=== PATIENT | male | born 1950 | race Caucasian/White ===

== ENCOUNTER → 2018-02-26 10:24 | Outpatient (CLI) | payer MEDICARE, OTHER, SELFPAY ==
[2018-02-26 11:56] LABS: INR 3.8 (0.9-1.3); Prothrombin Time 42.4 SECONDS (10.1-12.7)
== END ==
PROVIDERS: Visit Provider Internal Medicine
DX: Z79.01 Long term (current) use of anticoagulants (principal)
CPT/HCPCS: 36415; 85610

== ENCOUNTER 2019-04-13 10:01 | Day surgery (SDC) | payer MEDICARE, OTHER, SELFPAY ==
[2019-04-13] VITALS (7 sets, daily range): BP systolic 101–160; BP diastolic 62–77; PULSE 59–68; RESP 10–20; TEMP 36.4–36.7; O2SAT 93–98; BMI 25.6
--- NOTE | 2019-04-13 | PATH_ITS ---
[facility] Accession Number: [id number] . 01 Material submitted: . PART A: small bowel - TERMINAL ILEUM PART B: colon - RANDOM COLON BIOPSIES . 01 Clinical history: . A-B: HISTORY OF CROHNS . 02 Diagnosis: A. Terminal Ileum, Biopsy: Mild active ileitis; please see comment. Negative for granulomata, dysplasia or malignancy. . B. Random Colon, Biopsies: Patchy moderate active colitis; please see comment. Negative for granulomata, dysplasia or malignancy. MRV 04/18/2019 0941 Local . 02 Comment: The overall histologic findings are consistent with the clinical history of Crohn's disease. . 02 Electronically signed: . Iron Monroe MD, PhD, Pathologist NPI- [id number] . 01 Gross description: . Part A: TERMINAL ILEUM: Received in formalin are 2 fragment(s) of carbajal, soft tissue measuring 0.3 x 0.2 x 0.2 cm to 0.2 x 0.2 x 0.2 cm submitted entirely in 1 cassette(s) Part B: RANDOM COLON BIOPSIES: Received in formalin are multiple fragment(s) of carbajal, soft tissue measuring 1.0 x 1.0 x 0.1 cm in aggregate submitted entirely in 1 cassette(s) /QBJ 04/14/2019 0714 Local . 02 Pathologist provided ICD-10: K50.00 . 02 CPT . 031431, 200152 Performed at: 01 [facility] [address] [place] [address], [place], [place] [id number] MD Tito Jacobsen MD Phone: [phone] Performed at: [facility] [address] [place], [place] [id number] MD Reyna Guerrero MD Phone: [phone]
[2019-04-13] MEDS: SODIUM CHLORIDE 0.9% 1,000 ML 70 ML IV (10:58)
--- NOTE | 2019-04-13 12:29 | PM.HP.1 ---
History of Present Illness History of Present Illness Date Patient Seen: 04/13/19 Time Patient Seen: 12:29 Chief complaint: [id number] Narrative: Personal history of Crohn's disease. Denies any changes to his symptoms he was seen in the office on February 28, 2019. He is not on any medications for his Crohn's disease at this time. Patient History Family & Social History Social History: household members spouse Meds Home Medications and Allergies Home Medications Medication Instructions Recorded Confirmed Type Gralise 600 mg PO PRN #0 09/08/11 04/13/19 History cyclobenzaprine 10 mg PO PRN #0 09/08/11 04/13/19 History omeprazole 20 mg PO DAILY #0 09/08/11 04/13/19 History sertraline 50 mg PO QDAY #0 09/08/11 04/13/19 History simvastatin 40 mg PO QDAY #0 09/08/11 04/13/19 History warfarin [Coumadin] 8 mg PO QDAY #0 09/08/11 04/13/19 History aspirin [Aspirin Low Dose] 81 mg PO DAILY 04/13/19 04/13/19 History cholecalciferol (vitamin D3) 1,000 unit PO DAILY 04/13/19 04/13/19 History [Vitamin D3] eszopiclone [Lunesta] 2 mg PO BEDTIME 04/13/19 04/13/19 History hydrochlorothiazide 12.5 mg PO DAILY 04/13/19 04/13/19 History Allergies Allergy/AdvReac Type Severity Reaction Status Date / Time From Allergy Mild RASH Uncoded 04/13/19 10:41 TAPE Allergy Mild SENSITIVE Uncoded 04/13/19 10:41 Review of Systems Review of Systems ROS Unobtainable: All systems reviewed & are unremarkable except as noted in HPI and below Exam Vital Signs (past 8 hours): - 04/13/19 10:47 Temperature 98.0 F Pulse Rate 68 Respiratory Rate 15 Blood Pressure 160/77 H Pulse Oximetry 96 Oxygen Delivery Method Room Air Const General: cooperative, healthy appearing, comfortable, well developed and well groomed Nutritional Appearance: average body habitus Orientation: oriented x3 Resp Effort & Inspection: normal respiratory effort Auscultation: clear to auscultation bilaterally Cardio Rate: regular rate Rhythm: regular rhythm Heart Sounds: S1 normal and S2 normal GI Palpation: soft, No guarding, No rigid and No tender Auscultation: normal bowel sounds Extrem Right lower extremity: no edema Left lower extremity: no edema Assessment & Plan Assessment & Plan narrative: 1. Personal history of Crohn's disease 2. Coumadin - held 5 days prior to procedure - Colonoscopy today
[2019-04-13] MEDS: MIDAZOLAM 5 MG/5 ML VIAL IV (12:54)
[2019-04-13] MEDS: fentaNYL 250 MCG/5 ML INJ IV (12:54)
--- NOTE | 2019-04-13 13:07 | PM.OP.ENDO ---
Operative Date/Time/Diagnoses Date of procedure: 04/13/19 Time of procedure: 12:35 Procedure Notes Procedure in detail: Surgeon: Kim Rosenbaum DO Procedure: Colonoscopy with biopsy Preoperative diagnosis: Crohn's disease Postoperative diagnosis: 1. Normal appearing ileum -biopsied 2. Altered anatomy of cecum and ileocecal valve 3. Mild decreased vascularity of the colon, biopsied to assess for Crohn's activity 4. Sigmoid diverticulosis 5. Mild internal hemorrhoids noted on retroflexion Medications: Conscious sedation using 5 mg IV of Midazolam and 150 mcg IV of Fentanyl Preanesthesia Assessment An H and P was performed/updated and the Px?s ASA class is 2. The procedure was discussed in detail with the patient. The potential risks and complications including infection, bleeding, missed lesions, perforation, need for surgery in case of perforation, prolonged hospital stay, and were explained. A brief question and answer period was allotted and once all questions were answered, informed consent was obtained. The patient was brought back to the procedure room and placed on standard monitoring. The patient?s vital signs were monitored continuously throughout the entire procedure. Prior to starting, a timeout was performed to confirm the patient?s identity, allergies, medications, and procedure. Procedure in detail The patient was placed in left lateral decubitus position and once adequate sedation was obtained a PATO was performed. The digital rectal examination did not reveal any palpable lesions. The tip of the colonoscope was placed in the anal canal and advanced without difficulty all the way to the cecum which was identified by the appendiceal orifice and the ileocecal valve. Careful examination of all stoddard of the colon was performed with irrigation of any residual stool. Altered anatomy was noted in the cecum -initial appearance was suggestive of prior surgical intervention, however patient denies surgery. I suspect he has had stenosis of the ileum and potentially fistulized. Biopsies were taken of the terminal ileum Random colon biopsies were taken due to mild decreased vascularity throughout the colon to assess for Crohn's activity Sigmoid diverticulosis was noted Grade 1 internal hemorrhoids noted on retroflexion, exam was otherwise unremarkable The patient tolerated the procedure well and will be brought back to the recovery area to be discharged once criteria are met. The prep was judged to be good/excellent and adequate to identify polyps less than 5 mm. The withdrawal time was 7min. The total physician intraservice time was 22min. Complications There were no complications and estimated blood loss was minimal. Recommendations: Resume previous diet Continue outPx medications Follow up pathology results Repeat colonoscopy in Office follow up in An emergency contact number was given to the patient for any complications related to the procedure
== END 2019-04-13 13:49 | disposition home or self-care (01) ==
PROVIDERS: Family Provider Internal Medicine; PCP Internal Medicine; Visit Provider Student in an Organized Health Care Education/Training Program
PROC: 0DJD8ZZ Inspection of Lower Intestinal Tract, Via Natural or Artificial Opening Endoscopic (ICD-10-PCS; CPT 45378; principal; 2019-04-13 11:30)
DX: K50.00 Crohn's disease of small intestine without complications (principal); Z86.711 Personal history of pulmonary embolism; Z79.01 Long term (current) use of anticoagulants; I10 Essential (primary) hypertension; E78.5 Hyperlipidemia, unspecified; K57.30 Diverticulosis of large intestine without perforation or abscess without bleeding; K64.0 First degree hemorrhoids
CPT/HCPCS: 45380; J2250; J3010

== ENCOUNTER → 2020-05-21 06:24 | Outpatient (CLI) | payer MEDICARE, OTHER, SELFPAY ==
--- NOTE | 2020-05-21 | DI.MRI.S_ITS ---
PROCEDURE: MR SHOULDER LT WO CON INDICATIONS: PAIN IN LEFT SHOULDER TECHNIQUE: Noncontrast oblique coronal T2 fast spin echo with fat saturation, oblique sagittal T1 spin echo and T2 fast spin echo with fat saturation, axial T1 spin echo and T2 fast spin echo with fat saturation through the shoulder. COMPARISON: [facility], , SHOULDER WITHOUT CONTRAST, 01/01/2012, 16:38. FINDINGS: Image quality: Excellent. Rotator cuff: There is moderate T2 signal elevation throughout the supraspinatus and anterior infraspinatus tendons at the humeral insertion site, indicating tendinopathy. There is moderate grade bursal and articular surface tearing of the anterior supraspinatus tendon at the humeral insertion site, extending to the musculotendinous junction, spanning roughly 15 mm anteroposterior. There is mild T2 signal elevation throughout the subscapularis tendon at the humeral insertion site, indicating tendinopathy. Superimposed low-grade partial-thickness intrasubstance tears of the mid and superior aspect of the subscapularis tendon at the humeral insertion site. Teres minor is intact. No rotator cuff atrophy. Bones and bursae: No bone marrow contusions or fractures. Severe acromioclavicular joint degeneration. The acromion demonstrates conventional anatomy, without an os acromiale. No pathologic subacromial-subdeltoid or subcoracoid bursal fluid is present. Capsule and soft tissues: There is undercutting of the posterior labrum. The long head of the biceps tendon demonstrates normal location and moderate grade tearing. The rotator interval appears normal, without fibrosis. The coracohumeral ligament is normal in thickness. IMPRESSION: 1. Supraspinatus and infraspinatus tendinopathy. Superimposed moderate grade tearing of the supraspinatus. 2. Subscapularis tendinopathy with superimposed low-grade partial-thickness tearing. 3. Acromioclavicular joint osteoarthritis. 4. Posterior labral tearing. 5. Partial thickness biceps tendon tear. Dictated by: Gee Aponte M.D. on 05/21/2020 at 10:14 Approved by: Gee Aponte M.D. on 05/21/2020 at 10:17
== END ==
PROVIDERS: Family Provider Internal Medicine; PCP Internal Medicine; Referring Provider Internal Medicine; Visit Provider Internal Medicine
DX: M25.512 Pain in left shoulder (principal); M19.012 Primary osteoarthritis, left shoulder; M75.112 Incomplete rotator cuff tear or rupture of left shoulder, not specified as traumatic; S43.492A Other sprain of left shoulder joint, initial encounter; S46.112A Strain of muscle, fascia and tendon of long head of biceps, left arm, initial encounter
CPT/HCPCS: 73221

== ENCOUNTER → 2020-11-29 19:14 | Outpatient (CLI) | payer MEDICARE, OTHER, SELFPAY ==
--- NOTE | 2020-11-29 | DI.MRI.S_ITS ---
PROCEDURE: MR HIP LT WO CON INDICATIONS: Pain in left hip TECHNIQUE: Noncontrast coronal T1 spin echo and STIR through the bony pelvis. Coronal and axial T2 fast spin echo with fat saturation, sagittal T1 spin echo, and oblique axial T2 fast spin echo with fat saturation through the hip. COMPARISON: None. FINDINGS: Image quality: Excellent. Bones and joints: There is a linear subchondral fracture line traversing the superior aspect of the humeral head, measuring roughly 25 mm anteroposterior. The visualized lower lumbar spine appears normally aligned. Tendons and ligaments: The gluteus medius and minimus tendons appear intact, without associated muscle atrophy. The nearby proximal iliotibial band also appears intact. The iliopsoas tendon appears intact, with a small amount of adjacent iliopsoas bursal fluid. impingement syndrome. The origin of the hamstring tendon is intact at the ischial tuberosity, as well as the associated sacrotuberous ligament. The straight and reflected heads of the rectus femoris muscle origin appear intact, as well as the conjoint tendon. The ligamentum teres appears intact where visualized. Labrum and cartilage: Irregular T2 signal elevation within the anterosuperior left hip labrum. Cartilage surface of the femoral head appears of normal thickness. The alpha angle of the femur is within normal limits at less than 55 degrees. Soft tissues: There is moderate ill-defined T2 signal elevation within the left ileo psoas musculature as well as the left gluteus medius and minimus muscles. The proximal sciatic neurovascular bundle appears normal adjacent to the hamstring tendons. No free pelvic fluid. Bladder wall thickness is normal. Genitourinary structures and bowel loops appear normal where visualized. IMPRESSION: 1. Nondisplaced femoral head fracture, possibly resulting from avascular necrosis. 2. Moderate grade strain of the left gluteus medius and minimus musculature, as well as the ileopsoas musculature with associated iliopsoas bursal fluid collection. 3. Left hip labral tearing. Dictated by: Gee Aponte M.D. on 11/30/2020 at 9:41 Approved by: Gee Aponte M.D. on 11/30/2020 at 11:44
== END ==
PROVIDERS: Family Provider Internal Medicine; PCP Internal Medicine; Referring Provider Family Medicine; Visit Provider Family Medicine
DX: M25.552 Pain in left hip (principal); S72.092A Other fracture of head and neck of left femur, initial encounter for closed fracture; S73.192A Other sprain of left hip, initial encounter
CPT/HCPCS: 73721

== ENCOUNTER → 2020-12-26 09:02 | Outpatient (CLI) | payer MEDICARE, OTHER, SELFPAY ==
[2020-12-26 11:46] LABS: COVID19 -Nasal RAPID Negative (Negative)
== END ==
PROVIDERS: Family Provider Internal Medicine; PCP Internal Medicine; Visit Provider Student in an Organized Health Care Education/Training Program
DX: Z01.812 Encounter for preprocedural laboratory examination (principal); Z20.822 Contact with and (suspected) exposure to COVID-19
CPT/HCPCS: 87635; C9803

== ENCOUNTER 2020-12-28 09:07 | Observation (INO) | payer MEDICARE, OTHER, SELFPAY ==
[2020-12-18 12:35] VITALS: BMI 23.7
[2020-12-27] VITALS (12 sets, daily range): BP systolic 98–149; BP diastolic 55–91; PULSE 60–82; RESP 14–18; TEMP 36.6–37.5; O2SAT 95–100; BMI 23.6
--- NOTE | 2020-12-27 | PATH_ITS ---
[facility] Accession Number: [id number] . 01 Material submitted: . bone - LEFT FEMORAL HEAD . 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 Variably fibrotic marrow with foci of maturing trilineage hematopoiesis. No evidence of neoplasm. V 01/01/2021 1337 Local . 02 Electronically signed: . Iron Monroe MD, PhD, Pathologist NPI- [id number] . 01 Gross description: . The specimen is received in formalin, labeled left femoral head and consists of a 5.6 x 5.0 x 4.8 cm femoral head with a smooth bone resection margin. The fovea centralis measures 1.0 x 0.8 cm. The articular surface is carbajal and smooth. Sectioning reveals carbajal, trabeculated cut surfaces. Cat Skinner sections are submitted following decalcification in cassettes A1-A2. ([id number]) /V 12/28/2020 1040 Local . 02 Pathologist provided ICD-10: M87.052 . 02 CPT . 698493, 593455 Performed at: 01 [facility] [address], [place], [place] [id number] MD Tito Jacobsen MD Phone: [phone] Performed at: 02 [facility] [address] [place], [place] [id number] MD Reyna Guerrero MD Phone: [phone]
--- NOTE | 2020-12-27 07:26 | DI.RAD.S_ITS ---
PROCEDURE: XR HIP W PEL IF DONE LT 2V INDICATIONS: left SAVANNAH TECHNIQUE: 5 spot fluoroscopic intraoperative images of the hip were acquired. COMPARISON: None. FINDINGS: Spot fluoroscopic intraoperative images demonstrate a left total hip arthroplasty with expected osseous alignment. Postoperative changes are seen in the overlying soft tissues. IMPRESSION: Left total hip arthroplasty with expected alignment. Dictated by: Rafiq Maciel M.D. on 12/27/2020 at 14:35 Approved by: Rafiq Maciel M.D. on 12/27/2020 at 14:37
[2020-12-27] MEDS: ACETAMINOPHEN 325 MG TABLET 975 MG PO (09:31)
[2020-12-27] MEDS: PREGABALIN 75 MG CAPSULE PO (09:33)
[2020-12-27] MEDS: LACTATED RINGERS 1,000 ML 42 ML IV ×2 (10:04→13:19)
--- NOTE | 2020-12-27 10:17 | SUR.PREOP ---
Left posterior thigh clipped. 3 min chlorhexadine wipe done.
--- NOTE | 2020-12-27 10:55 | PM.PREOP ---
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 Medical clearance note reviewed, labs, EKG reviewed, anticoagulation plan reviewed.
[2020-12-27] MEDS: CEFAZOLIN 1 GM VIAL 2 GM IV ×2 (11:33→19:21)
[2020-12-27] MEDS: TRANEXAMIC ACID 1,000 MG VIAL 2000 MG INJ ×2 (11:50→13:12)
--- NOTE | 2020-12-27 12:06 | SUR.OPER ---
Head on pillow. Supine on fracture table with operative leg secured in traction. Other leg secured in padded stirrup. Arms across chest, secured with sheet.
--- NOTE | 2020-12-27 12:30 | DI.RAD.S_ITS ---
PROCEDURE: XR PELVIS 1-2V INDICATIONS: LT HIP ANTERIOR PO TECHNIQUE: 1 view of the lower pelvis acquired. COMPARISON: [facility], CR, XR HIP W PEL IF DONE LT 2V, 12/27/2020, 12:19. FINDINGS: Bones: Patient is status post total left hip arthroplasty, with hardware components in expected positions. The hip joint appears congruent. The visualized bony structures appear intact. Soft tissues: Overlying postoperative changes are noted. No suspicious soft tissue densities. IMPRESSION: Expected immediate postoperative appearance, status post total left hip arthroplasty. Dictated by: Hussain Steel M.D. on 12/27/2020 at 16:43 Approved by: Hussain Steel M.D. on 12/27/2020 at 16:45
[2020-12-27] MEDS: ROPIVACAINE 0.5% PF 5 MG/ML 20ML VIAL 60 ML INJ (12:36)
[2020-12-27] MEDS: KETOROLAC 30 MG/ML VIAL IV (12:36)
[2020-12-27] MEDS: MORPHINE 4 MG/ML INJ INJ (12:36)
[2020-12-27] MEDS: SODIUM CHLORIDE IRRIG SOLUTION 250 ML, POVIDONE-IODINE SPONGE STICKS 1 APPLIC IRR (12:37)
[2020-12-27] MEDS: VANCOMYCIN 1,000 MG VIAL 1000 MG TOP (13:10)
--- NOTE | 2020-12-27 13:36 | PM.OP.1 ---
Operative Date/Time/Diagnoses Date of procedure: 12/27/20 Time of procedure: 13:36 Pre-op diagnosis: left hip AVN Post-op diagnosis: same Procedure & Clinicians Procedure: Left anterior total hip arthroplasty Same procedure as scheduled: Yes Indications: Left hip AVN resistant to further conservative measures Surgeon: Dov Osman [employer] Analyst: Goyo Skinner Click Yes if Unassisted: No Anesthesia Type: General and Spinal Operative Notes Findings: Left hip AVN. No overt signs osteoarthritis Closure Type: primary Specimen(s): other (Femoral head sent to pathology) Prosthetic devices, grafts, tissues, transplants, or devices: Cardoso and nephew R3 cup 52 mm diameter 1x 20mm screw 1x 25mm screw 52 mm x 36 mm neutral offset polyethylene liner Size 6 standard offset anthology stem Oxinium 36- 3 head Estimated Blood Loss (mL): 250 Procedure in detail: Patient was met in the preoperative holding area where the site and side of surgery marked by . Informed consent been reviewed in clinic was also reviewed and signed in the preoperative holding area. All last minute questions were answered. Patient was then brought back in the operating room where he received a spinal anesthetic is induced under general anesthesia. Both feet were placed in well-padded [place] table boots. The left lower extremity was then prepped and draped normal sterile fashion. A surgical time-out was performed verifying the site and side of surgery as well as the name of the patient. A 7 cm long incision approximately 2 cm distal and 1 cm lateral to the ASIS aiming towards the fibular head was made in the skin with a 10. Blade. Electrocautery was then used to dissect down to the level the tensor fascia. A new 10. Blade was then used to incise the tensor fascia. It Allis clamp was placed on the medial leaflet and the tensor muscle itself was reflected laterally and a Cobra placed over the superior aspect of the femoral neck. Meyerding retractor was then placed over the lateral aspect of the rectus femoris retracted medially the was exposure to this ending branches the circumflex vessels. These were coagulated using electrocautery. A 2nd Cobra retractors then placed on the inferior aspect of the left femoral neck. A bent Hohmann retractors then placed over the anterior lip of the acetabulum the was exposure to the capsule. Inverted T-shaped capsulotomy was then performed. The superior and inferior leaflets were tagged with FiberWire suture. The Cobra retractors then placed intracapsularly. This point reciprocating saw was then used to make the femoral neck cut based off a preoperative templates. A corkscrew was then used to remove the femoral head. Retractor was then replaced after placement of soft tissue sleeve. Retractors were placed to give us good a exposure to the acetabulum. The pulvinar was then removed as well as the remnant of the labrum. I then began reaming with a 43 mm Reamer to medialized and upsizing by 2s. Once I got to a 49 mm Reamer I reamed under fluoroscopic guidance I then went up to 51 mm Reamer and also reamed under fluoroscopic guidance and then selected a 52 mm R3 three-hole cup. This was then malleted into place under fluoroscopic guidance and 2 screws were then placed. Polyethylene liner was then placed making sure the tabs were flush with the acetabular rim. This was impacted in place. I then turned my attention to the femoral side femoral elevator hook was placed into the posterior aspect of the femur the femur was then externally rotated to 120? extended to the floor and adducted. A bent Hohmann was placed over the superior aspect of the superior leaflet of the capsulotomy. Capsule was then further released off the inside shoulder of the greater trochanter to produce a soft spot. A single prong retractors then placed over the tip of the greater trochanter a Meyerding retractor was then placed over the calcar. A controlled release of the short external rotators was then performed and the femur was then elevated up into the wound. This gave us good exposure to the femoral neck cut. Then began with a canal finer followed by chili puneet broach followed by a size 1 broach I then broached up to a size 5 and calcar planed off a size 5 broach subsequently placed a size 6 broach with a standard offset trial neck and a 36+ 0 head. This was then trialed the was stable to maximal external rotation as well as external rotation 90? extension the floor. Fluoroscopy was brought in which showed we were little bit long on the operative side we had good canal fit with the stem although did appear that we could probably countersink the stem. The hip was then dislocated the trial components were removed and then countersunk the 6. Broach several mm. A size 6 standard offset anthology stem was then selected. Betadine solution was then placed in the wound and lavaged with copious normal saline and Vancomycin was placed into the wound this point due to a pinhole-sized breach of the gloves. The stem was then placed and malleted into place. A 36- 3 Oxinium head was then placed on the trunnion and malleted into place as well. The hip was then reduced a final time taken to range of motion found to be stable. Betadine solution was then placed into the wound final fluoroscopic imaging was obtained Betadine solution was then lavaged with copious normal saline the capsulotomy was then repaired using running Ethibond suture. The tensor fascia was then repaired using and 1. Vicryl in running locking fashion followed by 2 0 Vicryl in the subcutaneous layer followed by 3-0 Stratafix and subcuticular layer followed by Dermabond and Aquacel dressing. Complications: none Post-operative Condition: stable Disposition: PACU Plan for aftercare: 24 hours postop antibiotics, weight-bearing as tolerated left lower extremity, patient will start his Lovenox tomorrow as well as his warfarin. He will continue the Lovenox and warfarin until he is seen by anticoagulation Clinic and confirm his INR is return to normal which point he can stop taking the Lovenox.
--- NOTE | 2020-12-27 14:57 | PC.NURSE ---
Day shift: Pt on unit at approx 1450 from PACU. He is A&Ox4. Denies any pain. States that his legs still feel numb. VS WNL. RA 99%. No drains or Mejía. Oriented to room and call light. Agrees to not get OOB w/o help from staff. Spouse in room for support. Can wiggle toes. Aquacel anterior left hip is CDI.
[2020-12-27] MEDS: LACTATED RINGERS 1,000 ML 125 ML IV (15:26)
[2020-12-27] MEDS: ACETAMINOPHEN 325 MG TABLET 650 MG PO (20:13)
[2020-12-27] MEDS: DOCUSATE 100 MG CAPSULE PO (20:14)
[2020-12-27] MEDS: ENOXAPARIN 80 MG/0.8 ML SYRINGE 70 MG SUBCUT (20:14)
[2020-12-27] MEDS: ATORVASTATIN 20 MG TABLET 40 MG PO (20:14)
[2020-12-28] VITALS (9 sets, daily range): BP systolic 114–127; BP diastolic 55–74; PULSE 64–75; RESP 14–18; TEMP 36.6–37.8; O2SAT 96–99
[2020-12-28] MEDS: LACTATED RINGERS 1,000 ML 125 ML IV (00:49)
[2020-12-28] MEDS: CEFAZOLIN 1 GM VIAL 2 GM IV (02:49)
[2020-12-28] MEDS: OXYCODONE IR 5 MG TABLET PO ×2 (03:25→04:22)
[2020-12-28] MEDS: HYDROMORPHONE 1 MG INJ 0.2 MG IV ×3 (05:24→09:22)
[2020-12-28 06:06] LABS: Hematocrit 27.5 % (41-53); Hemoglobin 9.2 g/dL (13.5-17.5)
[2020-12-28 06:13] LABS: INR 1.4 (0.9-1.3); Prothrombin Time 15.8 SECONDS (10.1-12.7)
[2020-12-28] MEDS: PANTOPRAZOLE DR 20 MG TABLET PO (06:42)
[2020-12-28] MEDS: ACETAMINOPHEN 325 MG TABLET 650 MG PO ×3 (08:57→21:13)
[2020-12-28] MEDS: OXYCODONE IR 5 MG TABLET 10 MG PO ×4 (08:57→21:13)
[2020-12-28] MEDS: CHOLECALCIFEROL (VITAMIN D3) 1,000 UNIT TABLET 1000 UNIT PO (08:58)
[2020-12-28] MEDS: DOCUSATE 100 MG CAPSULE PO ×2 (08:58→21:13)
[2020-12-28] MEDS: ASPIRIN EC 81 MG TABLET PO (08:58)
[2020-12-28] MEDS: ENOXAPARIN 80 MG/0.8 ML SYRINGE 70 MG SUBCUT ×2 (08:58→21:11)
[2020-12-28] MEDS: polyethylene glycoL 3350 17 GM POWD.PACK PO (09:07)
--- NOTE | 2020-12-28 09:20 | PT.IIE ---
Current Diagnoses Idiopathic aseptic necrosis of left femur (12/27/20) Surgery Performed Operation Date: 12/27/20 10:45 Actual Procedures p Total Hip Arthroplasty/Anterior Approach(Left) - Dov Osman MD Medical History (Last Updated 12/18/20 @ 13:44 by Denisse Dale RN) Anxiety Arthritis Depression Diverticulitis DJD (degenerative joint disease) Eczema GERD (gastroesophageal reflux disease) Hearing impaired HTN (hypertension) 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9) Pulmonary embolism Spinal stenosis Physical Therapy Inpatient Evaluation/Re-Eval M1 PT/OT-IP Prior Functional Status Start: 12/28/20 12:38 Freq: NEEDED Status: Active Protocol: Document 12/28/20 09:20 AB (Rec: 12/28/20 12:54 AB [email or web address]) Medical Review Prior Functional Status Medical History Reviewed Yes Communication able to make needs known; very [place] Mobility and Gait pt stated that he is independent with all mobilities and ambulation without AD but has been using a SPC on and off; has used SPC or crutches before when pain is bad per pt Social History Household Members spouse Living Arrangements House Number of Floors (Floors) One Floor Number of Stairs To Enter/Railing? 2 platform steps to enter Home Environment Standard Height Toilet,Tub/ Shower Home Equipment Four Wheel Walker,Shower Seat without Backrest,Grab Bars In Shower Employment Status Retired M2 PT-IP Current Condition Start: 12/28/20 12:38 Freq: NEEDED Status: Active Protocol: Document 12/28/20 09:20 AB (Rec: 12/28/20 12:54 AB [email or web address]) Physical Therapy Current Condition Current Condition Evaluation Date 12/28/20 Treatment Diagnosis s/p L SAVANNAH anterior approach; difficulty in walking Onset Date 12/27/20 Precautions Anterior Hip Precautions No Hip Extension,No Hip External Rotation Weight Bearing Status Weight Bearing Status Weight Bear as Tolerated Allowed Weight Bearing Amount (enter % LLE WBAT or #) (%) M3 PT-IP Subjective Start: 12/28/20 12:38 Freq: NEEDED Status: Active Protocol: Document 12/28/20 09:20 AB (Rec: 12/28/20 12:54 AB [email or web address]) Subjective Physical Therapy Visit Type Type Initial Evaluation Visit Start Time 09:20 Visit Stop Time 10:15 Total Visit Minutes 55 Number of TAX ATTORNEY Visits 0 Physical Therapy Visit Comments Patient Comments pt c/o increase L hip pain Therapy Pain Assessment Pain When Pain Assessed At Rest Pain Present Pain Present Pain Reported Location left hip Intensity 10 Scale Used Numeric (0 - 10) Pain Management Techniques Apply Cold,Distraction, Modification of Treatment,Re- positioning,Timing of Activity with Medications M4 PT-IP Mobility and Gait Start: 12/28/20 12:38 Freq: NEEDED Status: Active Protocol: Document 12/28/20 09:20 AB (Rec: 12/28/20 12:54 AB [email or web address]) PT-Bed Mobility Assessment Supine to Sit Supine to Sit Maximum Assistance,1 Person Assistance PT-Transfer Assessment Sit to and From Stand Sit to and from Stand Moderate Assistance,1 Person Assistance,Use of Upper Extremities Equipment Transfer Assistive Device Bed Rail,Front Wheeled Walker Orthotic/Prosthetic Devices or Brace: No Transfers Transfer Destination Chair Transfer Technique ambulated Transfer Ability Level of Assist Minimal Assistance,Moderate Assistance,1 Person Assistance ,Use of Upper Extremities Comments Mobility Comments educated on anterior hip precautions and pt requires cues to recall. spouse in room with pt. pt completed supine to sit max A and cues. c/o increase L hip pain. was able to sit on EOB CGA and completed sit to stand mod A and cues and ambulated to the chair ~ 15 ft min to mod A and max cues. heavy UE use on FWW and unable to put weight much on LLE due to pain. pt agreed to sit on chair. positioned on chair. call light and table placed within reach. informed pt and and spouse that PT will inform nurse regarding pain and recommendation for x-ray of L hip. Talked to the PA and informed regarding 02/24 pain on LLE and concerns regarding L hip and suggestion of x-ray. Gait Assessment Gait Gait Assistance Required: Minimum Assistance,Moderate Assistance Distance (Feet) 15 Able to Maintain Weight Bearing Status Yes During Gait Assistive Devices Assistive Device Gait Belt,Front Wheeled Walker Orthotic/Prosthetic Devices or Brace: No Gait Deviations General Gait Pattern Antalgic,Decreased Stride Length,Decreased Feet Clearance,Step-to Gait Factors Limiting Gait Function Factors Limiting Gait Function Decreased Activity Tolerance, Decreased Strength,Difficulty Following Directions,Limited Range of Motion,Pain,Poor Balance,Poor Safety Awareness PT-Balance Assessment Sitting Balance and Reactions Static Sitting Balance Ability Good Dynamic Sitting Balance Ability Fair Standing Balance and Reactions Static Standing Balance Ability Poor Dynamic Standing Balance Ability Poor Device Used FWW M5 PT-IP Objective Assessments Start: 12/28/20 12:38 Freq: NEEDED Status: Active Protocol: Document 12/28/20 09:20 AB (Rec: 12/28/20 12:54 AB [email or web address]) Orientation Orientation/Cognition Level of Alertness Alert Orientation Name,Place,Situation Language Function Ability Hard of Hearing Safety Awareness Decreased Safety Awareness Memory Description Short Term Impaired Gross Range of Motion Lower Extremity ROM Assessment Left Impaired Impairments limited due to c/o increase pain with increase resistance Strength Lower Extremity Strength Assessment Left Impaired Hip 2+/5 Knee 3+/5 Muscle Tone Muscle Tone WNL Yes M6 PT-IP Treatment Start: 12/28/20 12:38 Freq: NEEDED Status: Active Protocol: Document 12/28/20 09:20 AB (Rec: 12/28/20 12:54 AB [email or web address]) Physical Therapy Treatment Exercises Exercises Heel Slides Education Education Provided Precautions,Weight Bearing Status,Post-Op Packet,Safety M7 PT-IP Assessment and Plan Start: 12/28/20 12:38 Freq: NEEDED Status: Active Protocol: Document 12/28/20 09:20 AB (Rec: 12/28/20 12:54 AB [email or web address]) PT Summary Assessment and Plan Potential Rehabilitation Potential Fair Status of Condition at Evaluation Evolving Summary Impairments Pain,ROM,Strength,Balance, Coordination,Sensation,Tone, Cognition,Bed Mobility, Transfers,Gait,Activity Tolerance Assessment Summary pt requiring mod to max A with mobility and unable to tolerate much activity due to c/o increase L hip pain 10/10. progress limited due to pain . informed nurse and PA regarding L hip concern. will continue to assess progress. caregiver training will be conducted when appropriate as well as stair climbing training. will need further assessment for safe d/c plan. Goals Bed Mobility Goal Standby Assistance Transfer Goal Standby Assistance,Front Wheeled Walker Gait Goal Standby Assistance,Front Wheel Walker Gait Distance 150 Other Goals up/down 2 platform steps using FWW/4WW SBA improve ambulation using 4WW 200 ft SBA Days to Meet Goals 5 Frequency of Treatment Frequency Of Treatment Twice a Day Treatment Plan Physical Therapy Treatment Plan Bed Mobility Training,Transfer Training,Gait Training, Therapeutic Exercise,Balance Retraining,Post Op Education, Discharge Planning,Hot or Cold Pack,Neuromuscular Re-ed, Coordination Retraining,Manual Therapy Precautions Anterior Hip Precautions No Hip Extension,No Hip External Rotation Recommendations To Nursing Amount of Assist Needed 1 Person Assist Discharge Recommendations PT Discharge Recommendations Home vs SNF Equipment Needed for Home Before FWW if not safe with 4WW Discharge Transportation Needs at Discharge Private Vehicle,Wheelchair/ Cabulance
--- NOTE | 2020-12-28 12:59 | DI.RAD.S_ITS ---
PROCEDURE: XR HIP W PEL IF DONE LT 2V INDICATIONS: Increased pain following left anterior SAVANNAH on 12/27/20 TECHNIQUE: AP pelvis and lateral view of the left hip acquired. COMPARISON: [facility], [place], XR PELVIS 1-2V, 12/27/2020, 13:57. [facility], [place], XR HIP W PEL IF DONE LT 2V, 12/27/2020, 12:19. FINDINGS: Bones: Patient is status post left hip arthroplasty, with hardware components in expected positions. The hip joint appears congruent. The visualized bony structures appear intact. Soft tissues: Overlying postoperative changes are noted. No suspicious soft tissue densities. IMPRESSION: Stable appearance of left hip arthroplasty. Dictated by: Amaury Ryan Aung Interpreted: Rafiq Maciel MD on 12/28/2020 at 13:42 Transcribed by: DOTTY on 12/28/2020 at 13:43 Approved by: Rafiq Maciel M.D. on 12/28/2020 at 15:39
--- NOTE | 2020-12-28 13:02 | P.PN_ITS ---
Subjective Subjective Date Patient Seen: 12/28/20 Time Patient Seen: 13:02 Interval history: Patient states he is in intense pain at rest. At this time he rates his pain an 8/10 in intensity. He denies fever, chills, nausea, chest pain, shortness of breath, or urinary retention. Patient reports mild decreased sensation to light touch on the anterolateral aspect of the proximal left thigh. Patient notes that his pain began to increase last night and has gradually worsened. He notes that he was able to get up and walk around the holes of the hospital yesterday following the procedure. However, he notes that today with physical therapy he needed significant assistance in order to ambulate. Exam Vital Signs (past 8 hours): - 12/28/20 07:42 12/28/20 08:57 12/28/20 10:16 Temperature 100.1 F H 100.1 F H 99.3 F Pulse Rate 73 Respiratory Rate 18 Blood Pressure 114/59 L Pulse Oximetry 98 Oxygen Delivery Method Room Air Oxygen Flow Rate 0 Narrative Exam Narrative: 70-year-old male postop day 1 status post left anterior total hip arthroplasty. Patient is resting in bed, is in no acute distress, and is alert and oriented x3. Skin is warm and dry, and the skin surrounding the incision site is free of erythema, warmth, induration, or discharge. Aquacel dressing over the incision site is clean, dry, and intact. Good sensation appreciated throughout the bilateral lower extremities light touch. Significant tenderness with internal and external gentle rocking the left hip. Diffuse tenderness to palpation throughout the left thigh. Calves are soft and nont carlo, negative Homans sign. DP pulses palpated. No signs of DVT appreciated. Const General: cooperative, healthy appearing and comfortable Resp Effort & Inspection: normal respiratory effort and able to speak in complete sentences Skin General: no rashes or lesions noted Objective Labs Result Diagrams: 12/28/20 05:25 Labs: Laboratory Results - last 24 hr 12/28/20 12/28/20 05:25 05:25 Hgb 9.2 L Hct 27.5 L PT 15.8 H INR 1.4 H PFSH Medical History Anxiety Arthritis Depression Diverticulitis DJD (degenerative joint disease) Eczema GERD (gastroesophageal reflux disease) Hearing impaired HTN (hypertension) 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8) Pulmonary embolism Spinal stenosis Surgical History History of vasectomy Hx of fusion of cervical spine (~2013) Hx of hernia repair Hx of tonsillectomy S/P epidural steroid injection Social History household members: spouse Smoking Status: Former smoker alcohol intake: former Assessment & Plan Post-op Postoperative Procedures: Procedures Operation Date: 12/27/20 10:45 Actual Procedure Side Surgeon p Total Hip Arthroplasty/Anterior Approach Left Dov Osman MD Postoperative day: 1 Postoperative status: marginal pain control Postoperative plan: ambulate Postoperative plan narrative: Patient is to continue working on ambulation with the assistance of a front wheeled walker with physical therapy. This to rule 25 mg q.4 hours has been added to patient's pain management regimen. Also dose of IV Dilaudid has increased from 0.2 mg to 0.5 mg q.2 hours. Patient is to continue aspirin 81 mg twice daily for DVT prophylaxis along with the assistance of sequential compression devices. X-ray of the left hip and pelvis has been ordered to check for acute bony abnormality. Will continue to monitor the patient's progress mobilizing with physical therapy. Plan for discharge likely home in the next day or two pending results of XR, successful work with PT, and improved pain control.
[2020-12-28] MEDS: HYDROMORPHONE 0.5 MG INJ IV ×3 (13:22→23:28)
[2020-12-28] MEDS: hydrOXYzine pamoate 25 MG CAPSULE PO ×2 (13:22→23:33)
--- NOTE | 2020-12-28 14:41 | CM.DPC ---
Discharge Planning/Care Management DCP: assessment: case received, EMR reviewed and met with pt. Introduced self and role. Pt is a 70 year old male who admitted yesterday for a scheduled L SAVANNAH/anterior approach: Surgeon: Dr. Osman. Payer: Medicare and [employer]. Admission status: Per UR Ngozi: SDC 12/27 with a change to OBS 12/28. Pt has worked with PT today and was severely limited by pain. PT spoke with TOD Nance and recommended an x-ray. He has ordered this. Pt says he is frustrated by the level of pain and inability he is experiencing. He says prior to surgery I could do pretty much anything I wanted or needed to do without pain. He said his plan had been to go home with his to provide supportive assist. He would like to discuss what is happening with his surgeon as this experience is not what he expected. Pt continues to need IV pain medication. Would consider asking for OT once ortho team have determined this is appropriate. P: DCP team to follow closely Advanced directive, confirm from FAMILY Start: 12/27/20 15:49 Freq: Q24H Status: Active Protocol: Document 12/27/20 15:49 AGW (Rec: 12/27/20 23:37 AGW [id number]) Advance Directive, confirm on record Time 18:00 Person contacted Copy received No CM Discharge Assessment Start: 12/28/20 14:38 Freq: Status: Active Protocol: Document 12/28/20 14:38 ITV (Rec: 12/28/20 14:41 ITV [id number]) Discharge Planning Assessment Advance Directives? Yes Advance Directives on File No History Provided By Patient,Medical Record Prior Living Arrangements House Household Members spouse Independent with ADL's Yes Is patient alert and oriented? Yes DME Already Rented / Owned FWW / Walker,Cane Comment has a 4ww. used a single point cane sometimes when he went outside. Review Status In Process Pre-Anesthesia Assessment Start: 12/18/20 12:35 Freq: Status: Complete Protocol: Document 12/18/20 12:35 CAB (Rec: 12/18/20 13:55 CAB [id number]) Pre-Anesthesia Assessment Preferred Name Aung Patient Information Reviewed Via Phone Assessment Assessment Completed With Spouse Comment Pt sleeping at time of assess, completed with , Shawn H&P Completed Within 30 Days Yes Comment Labs/EKG done @ [facility], not here, COVID 12/26/20 @ Primary Care Provider Candace Vinson Seen Specialist in Last 12 Months Yes Specialist Seen Orthopedist Primary Language Welsh Pressroom Foreman Required No Height 167.64 cm Weight 66.678 kg Body Mass Index (BMI) 23.7 Hearing Ability Hard of Hearing Visual Assist Glasses Dentition Type Teeth, Natural Present Barriers to Learning None Hx Anesthesia Reactions No Additional comment very concern PEs w/ anesthesia Hx Family Anesthesia Reaction No Hx Malignant Hyperthermia No Hx Blood Transfusions Yes: 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 No Does patient have BROWN/SOB No Hx Sleep Apnea No CPAP/BIPAP use not prescribed Currently Taking a Beta Paulo No Can You Climb a Flight of Stairs Without Yes SOB Hx Chest Pain No Hx SOB No Hx Syncope or Dizziness No Anti-Coagulant Therapy Yes: Warfarin & ASA- to find out when to hold, needs brigding Has a Zone Maintenance Technician No Cardiac Testing No Hx Pacemaker/ICD No Pacemaker Rep Required? No Cardiac Clearance Received Not Applicable Diet Type At Home Regular dysphagia Yes: Due cervical fusion Gastrointestinal Symptoms Reflux Bladder Pattern Frequency Urinary Catheter Present No Hx Urinary Self Catheterization No Diabetes No Hx Drug Resistant Organism No Presence of External or Internal Medical Yes: Cervical hardware Devices Have you had any close contact with No someone diagnosed with COVID-19? Marital Status Lives With spouse Prior Living Arrangements House Number of Floors (Floors) One Floor Support System Spouse Does the Patient Have Assistance After Yes Surgery Patient Discharge Plan Description Return Home Comment Pt advised overnight length of stay per surgeon Feels Safe in Current Environment Yes Been Physically Hurt or Threatened By a No Person in Current Environment Do you have thoughts of harming yourself None or others? Are you currently considering suicide? No Do you have a plan to hurt yourself or No Plan others? Do You Have Any Spiritual Beliefs That No May Affect Your HC Choices? Do You Have Any Cultural Practices That No May Affect Your HC Choices? Who Can We Speak to About Patient's Care Family, friends Identifying Code for Release of Patient Declines to issue Information Health Care Proxy/Next of Kin Shawn () Health Care Proxy Emergency Contact Name Shawn () Emergency Contact Advance Directives? Yes Advance Directives on File No Requested Patient Bring Advanced Yes Directives DOS Power of Hot Box Spotter Yes Power of Hot Box Spotter Name Shawn () Power of Hot Box Spotter PAC Instructions Durable medical equipment, Medications to take/avoid, Nasal antibiotic,No ETOH/ petroleum product on skin DOS, NPO,Post-op transportation,Pre -surgical wash,Sensory aids, Sturdy shoes/comfortable clothes,Do not bring valuables and remove jewelry
--- NOTE | 2020-12-28 15:00 | PT.IPTN ---
Current Diagnoses Idiopathic aseptic necrosis of left femur (12/28/20) Surgery Performed Operation Date: 12/27/20 10:45 Actual Procedures p Total Hip Arthroplasty/Anterior Approach(Left) - Dov Osman MD Physical Therapy Treatment Note M2 PT-IP Current Condition Start: 12/28/20 12:38 Freq: NEEDED Status: Active Protocol: Document 12/28/20 09:20 AB (Rec: 12/28/20 12:54 AB [id number]) Physical Therapy Current Condition Current Condition Evaluation Date 12/28/20 Treatment Diagnosis s/p L SAVANNAH anterior approach; difficulty in walking Onset Date 12/27/20 Precautions Anterior Hip Precautions No Hip Extension,No Hip External Rotation Weight Bearing Status Weight Bearing Status Weight Bear as Tolerated Allowed Weight Bearing Amount (enter % LLE WBAT or #) (%) M3 PT-IP Subjective Start: 12/28/20 12:38 Freq: NEEDED Status: Active Protocol: Document 12/28/20 15:00 AB (Rec: 12/28/20 17:12 AB [id number]) Subjective Physical Therapy Visit Type Type Treatment Note Visit Start Time 15:00 Visit Stop Time 15:20 Total Visit Minutes 20 Number of COOK 3 PASTRY Visits 0 Physical Therapy Visit Comments Patient Comments pt is agreeable to do PT Therapy Pain Assessment Pain When Pain Assessed At Rest Pain Present Pain Present Pain Reported Location left hip Intensity 4 Scale Used increases to 8-9/10 with mobility with (+) body shaking Pain Behaviors Facial Grimacing,Wincing Pain Management Techniques Apply Cold,Modification of Treatment,Re-positioning, Timing of Activity with Medications M4 PT-IP Mobility and Gait Start: 12/28/20 12:38 Freq: NEEDED Status: Active Protocol: Document 12/28/20 15:00 AB (Rec: 12/28/20 17:12 AB [id number]) PT-Bed Mobility Assessment Supine to Sit Supine to Sit Maximum Assistance Sit to Supine Sit to Supine Maximum Assistance,1 Person Assistance PT-Transfer Assessment Sit to and From Stand Sit to and from Stand Moderate Assistance,Maximum Assistance,1 Person Assistance ,Use of Upper Extremities Equipment Transfer Assistive Device Front Wheeled Walker Orthotic/Prosthetic Devices or Brace: No Comments Mobility Comments x-ray result came back unremarkable for any abnormalities. reviewed hip precautions and pt only recalled 1/2. pt completed supine to sit x 2 attempts max A and max cues for techniques. c/o increase hip pain 8-9 with mobility. pt completed sit to stand mod to max A and max cues and ambulated in room ~ 25 ft using FWW mod to max A and max cues. max A towards end of ambulation with c/o increase pain and (+) body/trunk shaking. pt requested to just go back to bed. max A for sit to supine . positioned pt in bed. call light and table placed within reach. pt tends to keep hip in flexion position even in bed and is getting increase hip flexion tightness. educated pt regarding proper positioning of L hip. pt understood. Gait Assessment Gait Gait Assistance Required: Moderate Assistance,Maximum Assistance,1 Person Assist Distance (Feet) 25 Able to Maintain Weight Bearing Status Yes During Gait Assistive Devices Assistive Device Gait Belt,Front Wheeled Walker Orthotic/Prosthetic Devices or Brace: No Gait Deviations General Gait Pattern Antalgic,Decreased Stride Length,Decreased Feet Clearance,Step-to Gait Factors Limiting Gait Function Factors Limiting Gait Function Decreased Activity Tolerance, Decreased Strength,Limited Range of Motion,Pain,Poor Balance,Poor Safety Awareness M5 PT-IP Objective Assessments Start: 12/28/20 12:38 Freq: NEEDED Status: Active Protocol: Document 12/28/20 09:20 AB (Rec: 12/28/20 12:54 AB [id number]) Orientation Orientation/Cognition Level of Alertness Alert Orientation Name,Place,Situation Language Function Ability Hard of Hearing Safety Awareness Decreased Safety Awareness Memory Description Short Term Impaired Gross Range of Motion Lower Extremity ROM Assessment Left Impaired Impairments limited due to c/o increase pain with increase resistance Strength Lower Extremity Strength Assessment Left Impaired Hip 2+/5 Knee 3+/5 Muscle Tone Muscle Tone WNL Yes M6 PT-IP Treatment Start: 12/28/20 12:38 Freq: NEEDED Status: Active Protocol: Document 12/28/20 15:00 AB (Rec: 12/28/20 17:12 AB [id number]) Physical Therapy Treatment Education Education Provided Precautions,Weight Bearing Status,Safety M7 PT-IP Assessment and Plan Start: 12/28/20 12:38 Freq: NEEDED Status: Active Protocol: Document 12/28/20 15:00 AB (Rec: 12/28/20 17:12 AB [id number]) PT Summary Assessment and Plan Potential Rehabilitation Potential Fair Summary Impairments Pain,ROM,Strength,Balance, Coordination,Sensation,Tone, Cognition,Bed Mobility, Transfers,Gait,Activity Tolerance Progress Towards Goals Slow Progress due to Pain Assessment Summary pt continues to c/o increase pain on L hip limiting mobility and activity tolerance. pt requiring mod to max A and max cues. will continue to assess progress for safe d/c plan but at this time, pt may require SNF rehab . will conduct caregiver training when appropriate and also stair climbing training. Goals Bed Mobility Goal Standby Assistance Transfer Goal Standby Assistance,Front Wheeled Walker Gait Goal Standby Assistance,Front Wheel Walker Gait Distance 150 Other Goals up/down 2 platform steps using FWW/4WW SBA improve ambulation using 4WW 200 ft SBA Days to Meet Goals 5 Frequency of Treatment Frequency Of Treatment Twice a Day Treatment Plan Physical Therapy Treatment Plan Bed Mobility Training,Transfer Training,Gait Training, Therapeutic Exercise,Balance Retraining,Post Op Education, Discharge Planning,Hot or Cold Pack,Neuromuscular Re-ed, Coordination Retraining,Manual Therapy Precautions Anterior Hip Precautions No Hip Extension,No Hip External Rotation Recommendations To Nursing Amount of Assist Needed 1 Person Assist Discharge Recommendations PT Discharge Recommendations Home vs SNF Equipment Needed for Home Before FWW if not safe with 4WW Discharge Transportation Needs at Discharge Private Vehicle,Wheelchair/ Cabulance
[2020-12-28] MEDS: WARFARIN 5 MG TABLET PO (16:38)
[2020-12-28] MEDS: SERTRALINE 50 MG TABLET 75 MG PO (21:11)
[2020-12-28] MEDS: ATORVASTATIN 20 MG TABLET 40 MG PO (21:12)
[2020-12-28] MEDS: hydroCHLOROthiazide 25 MG TABLET 12.5 MG PO (21:12)
[2020-12-28] MEDS: SODIUM CHLORIDE 0.9% FLUSH 10 ML IV (23:29)
[2020-12-29] VITALS: BP 134/73; PULSE 78; RESP 18; TEMP 36.7; O2SAT 99
[2020-12-29] MEDS: HYDROMORPHONE 0.5 MG INJ IV (05:18)
[2020-12-29] MEDS: PANTOPRAZOLE DR 20 MG TABLET PO (05:19)
[2020-12-29] MEDS: hydrOXYzine pamoate 25 MG CAPSULE PO (05:19)
[2020-12-29 05:42] VITALS: BP 104/69; PULSE 76; RESP 18; TEMP 36.7; O2SAT 96
[2020-12-29] MEDS: ASPIRIN EC 81 MG TABLET PO (09:08)
[2020-12-29] MEDS: DOCUSATE 100 MG CAPSULE PO (09:08)
[2020-12-29] MEDS: ACETAMINOPHEN 325 MG TABLET 650 MG PO ×2 (09:08→13:32)
[2020-12-29] MEDS: CHOLECALCIFEROL (VITAMIN D3) 1,000 UNIT TABLET 1000 UNIT PO (09:08)
[2020-12-29] MEDS: OXYCODONE IR 5 MG TABLET 10 MG PO (09:09)
[2020-12-29] MEDS: ENOXAPARIN 80 MG/0.8 ML SYRINGE 70 MG SUBCUT (09:11)
[2020-12-29] MEDS: polyethylene glycoL 3350 17 GM POWD.PACK PO (09:11)
[2020-12-29] MEDS: SODIUM CHLORIDE 0.9% FLUSH 10 ML IV (09:12)
--- NOTE | 2020-12-29 09:15 | P.DS_ITS ---
History of Present Illness History of Present Illness Date Patient Seen: 12/29/20 Time Patient Seen: 09:16 Chief complaint: L Total Hip Arthroplasty/Anterior Approach *OPB* Narrative: Refer to previous HPI. Discharge Providers Provider Date of admission: 12/28/20 09:07 Discharge Date: 12/29/20 Primary care physician: Candace Vinson MD Consults: 12/27/20 07:26 Consult to Anesthesiology Routine Comment: Consulting Provider: Anesthesiologist Reason for consultation: Regional block for post operative pain control 12/27/20 14:56 Consult to Discharge Planning Routine Comment: Consult to Physical Therapy Evaluate & Treat Comment: Physician Instructions: post op SAVANNAH protocol Consult to Respiratory Therapy Evaluate & Treat Comment: Physician Instructions: Evaluate and treat Discharge provider: Goyo Skinner PA-C Summary Hospital Course Discharge Diagnosis: Left hip avascular necrosis Status post left anterior total hip arthroplasty Hospital Course: Patient was admitted to the hospital following the above-listed procedure for the above-listed diagnosis. Following the procedure the patient has been convalescing appropriately in his pain has been managed with his current pain management regimen. Warfarin and Lovenox have been administered following surgery for DVT prophylaxis. Aquacel dressing over the incision site has remained clean, dry, and intact following surgery. Throughout his time in the hospital the patient and I had fever, chills, nausea, chest pain, shortness of breath, or urinary retention. Patient reports that his pain level has improved significantly since postoperative day 1. Patient has successfully worked on ambulation with the assistance of a front wheel walker with physical therapy. He has remained in standard total hip replacement protocol with anterior hip precautions. Status at Discharge Cognitive/behavioral status at discharge: oriented Functional status at discharge: uses cane/walker Overall status at discharge: patient is progressing back to baseline Exam Vital Signs (past 8 hours): - 12/29/20 05:42 Temperature 98.0 F Pulse Rate 76 Respiratory Rate 18 Blood Pressure 104/69 Pulse Oximetry 96 Oxygen Delivery Method Room Air Oxygen Flow Rate 0 Narrative Exam Narrative: 70-year-old male postop day 2 status post left anterior total hip arthroplasty. Patient is resting comfortably in bed, is in no acute distress, and is alert and oriented x3. Skin is warm and dry, and the skin surrounding the incision site is free of erythema, warmth, induration, or discharge. Aquacel dressing over the incision site is clean, dry, and intact. Good sensation appreciated throughout the bilateral lower extremities to light touch. Tenderness to palpation appreciated on the anterior lateral aspect of the proximal left thigh. Ankle dorsiflexion, plantar flexion, eversion, inve rsion performed bilaterally without difficulty or discomfort. DP pulses palpated bilaterally and are even. No other signs of DVT appreciated. Calves are soft nontender, negative Homans sign. 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 Plan for discharge home following afternoon physical therapy session. Plan of Treatment: Patient is to continue physical therapy in the outpatient setting following discharge from hospital. First postoperative visit in clinic is scheduled for 2 weeks following discharge. Current pain management regimen is to be continued as it is adequately controlled the patient's pain level. Patient is to begin tapering use of narcotic pain management as his pain level becomes more manageable. Patient will be on warfarin and Lovenox for DVT prophylaxis. Patient is to follow up at an anticoagulation clinic to have his INR confirmed, and if INR has returned to normal the patient is cleared to discontinue Lovenox. Patient is to remain weight-bearing as tolerated with the assistance of a front wheeled walker. Standard total hip replacement protocol with anterior hip precautions. Aquacel dressing over the incision site is to remain clean, dry, and intact for 2 weeks. Contact clinic if the dressing becomes damaged or soiled. Patient is to contact clinic with any concerns or questions. Any signs of increased redness, swelling, warmth, pain, or discharge from around the incision site should be reported to the clinic. Discharge Plan Discharge Plan Patient Disposition: Home Provider Discharge Comment: Discharge pending PT clearance. Plan for physical therapy sessions this morning and afternoon prior to discharge. Discharge orders & Medications Prescriptions: New acetaminophen 325 mg Tablet 650 mg PO TID Qty: 90 RF: 0 oxycodone 5 mg Tablet 10 mg PO Q3HR PRN (Reason: Pain, Severe (7-10)) Qty: 42 RF: 0 hydroxyzine pamoate 25 mg Capsule 25 mg PO Q4HR PRN (Reason: Muscle Spasm) Qty: 40 RF: 0 hydromorphone [Dilaudid] 2 mg tablet 2 mg PO Q6H Qty: 8 RF: 0 Continued sertraline 50 MG tablet 75 mg PO QDAY Qty: 0 RF: 0 omeprazole 20 MG tablet,delayed release (DR/EC) 20 mg PO DAILY Qty: 0 RF: 0 cyclobenzaprine 10 MG tablet 10 mg PO TID PRN (Reason: Muscle Spasm) Qty: 0 RF: 0 aspirin [Aspirin Low Dose] 81 mg Tablet,Delayed Release (Dr/Ec) 81 mg PO DAILY RF: 0 cholecalciferol (vitamin D3) [Vitamin D3] 1,000 unit Capsule 1,000 unit PO DAILY RF: 0 eszopiclone [Lunesta] 2 mg Tablet 2 mg PO BEDTIME RF: 0 hydrochlorothiazide 12.5 mg Capsule 12.5 mg PO DAILY RF: 0 atorvastatin 40 mg Tablet 40 mg PO BEDTIME RF: 0 warfarin 5 mg Tablet 5 mg PO SEEINSTR RF: 0 enoxaparin [Lovenox] 100 mg/mL Syringe 70 mg SUBCUT BID RF: 0 Follow up/Referrals: Candace Vinson MD [Primary Care Provider] - Diet/Activity/Treatments Diet: Diet as Tolerated and Regular Activity: Weight-bearing as tolerated with the assistance of a front wheeled walker. Standard total hip replacement protocol, anterior hip precautions. Cold/Heat Therapy: Apply ice as needed for pain. Skin/Wound/Dressing Care Report to your healthcare provider any signs of infection, such as:: chills, fever, night sweats, unusual drainage and unusual redness Dressing: Aquacel dressing over the incision site is to remain clean, dry, and intact for 2 weeks. Contact the clinic if the dressing becomes damaged or soiled. Other wound treatment: Avoid soaking the incision site or placing topical ointments over the incision site. Visit Report/Discharge Packet Instructions: DI for Hip Replacement, DI for Prescription Opioid Use Stand Alone Forms: Surgery Discharge Discharge Data Primary Care Provider: Candace Vinson Attending Provider: Dov Osman
--- NOTE | 2020-12-29 09:43 | PT.IPTN ---
Current Diagnoses Idiopathic aseptic necrosis of left femur (12/28/20) Surgery Performed Operation Date: 12/27/20 10:45 Actual Procedures p Total Hip Arthroplasty/Anterior Approach(Left) - Dov Osman MD Physical Therapy Treatment Note M2 PT-IP Current Condition Start: 12/28/20 12:38 Freq: NEEDED Status: Active Protocol: Document 12/28/20 09:20 AB (Rec: 12/28/20 12:54 AB [id number]) Physical Therapy Current Condition Current Condition Evaluation Date 12/28/20 Treatment Diagnosis s/p L SAVANNAH anterior approach; difficulty in walking Onset Date 12/27/20 Precautions Anterior Hip Precautions No Hip Extension,No Hip External Rotation Weight Bearing Status Weight Bearing Status Weight Bear as Tolerated Allowed Weight Bearing Amount (enter % LLE WBAT or #) (%) M3 PT-IP Subjective Start: 12/28/20 12:38 Freq: NEEDED Status: Active Protocol: Document 12/29/20 09:03 SP (Rec: 12/29/20 11:02 SP [id number]) Subjective Physical Therapy Visit Type Type Treatment Note Visit Start Time 09:03 Visit Stop Time 09:43 Total Visit Minutes 40 Notes in room, completed caregiver training including donning gait belt and CGA and cued for mob maintain precautions during tx. Vitalt taken: supine BP 124/67 HR 72 seated BP 139/64 HR 74 non symptomatic. Number of TERMINAL SUPERINTENDENT Visits 1 Physical Therapy Visit Comments Patient Comments pt is agreeable to do PT Therapy Pain Assessment Pain When Pain Assessed At Rest Pain Present Pain Present Pain Reported Location left hip Intensity 1 Scale Used 1-2/10 at rest, 3/10 during mobilty Pain Behaviors Facial Grimacing,Wincing Pain Management Techniques Modification of Treatment,Re- positioning,Timing of Activity with Medications M4 PT-IP Mobility and Gait Start: 12/28/20 12:38 Freq: NEEDED Status: Active Protocol: Document 12/29/20 09:03 SP (Rec: 12/29/20 11:02 SP [id number]) PT-Bed Mobility Assessment Supine to Sit Supine to Sit Standby Assistance Scooting Scooting to Edge of Bed Standby Assistance PT-Transfer Assessment Sit to and From Stand Sit to and from Stand Standby Assistance,Contact Guard Assistance,1 Person Assistance,Use of Upper Extremities Equipment Transfer Assistive Device Gait Belt,Front Wheeled Walker Orthotic/Prosthetic Devices or Brace: No Transfers Transfer Destination Chair Transfer Technique ambulated w/ FWW, 4WW Transfer Ability Level of Assist Standby Assistance,Contact Guard Assistance,1 Person Assistance,Use of Upper Extremities Comments Mobility Comments TERMINAL SUPERINTENDENT instructed LE post op ex. Pt recalled 2/2 hip precautions. Supine>sitting with leg tow operator SBA HOB flat, donned gait belt. Sit> stand using FWW ambulated further into hallway to PF step, ascend/descend x2 using FWW CGA, 150 ft and 4WW back 150 ft with 2 brieft stand rest breaks, occasional cuing for smaller step with RLE to allow no hip extension on L and small steps pivoting L , good self corrections carryover. TERMINAL SUPERINTENDENT educated proper use of 4WW brakes for slower pacing with Mod BUE WB on 4WW safety, good pacing control. Pt returned to chair when in room [facility]- SBA by . Had call light and all needs in reach before left, in room. TERMINAL SUPERINTENDENT notified nursing pt is ok to return home with to assist him when medically cleared. Gait Assessment Gait Gait Assistance Required: Contact Guard Assist Distance (Feet) 300 Able to Maintain Weight Bearing Status Yes During Gait Assistive Devices Assistive Device Gait Belt,Front Wheeled Walker Orthotic/Prosthetic Devices or Brace: No Gait Deviations General Gait Pattern Antalgic,Decreased Stride Length,Decreased Feet Clearance,Step-to Gait Factors Limiting Gait Function Factors Limiting Gait Function Decreased Activity Tolerance, Decreased Strength,Limited Range of Motion,Pain,Poor Balance,Poor Safety Awareness Comments Gait Comments See mobility comments Stair Climbing Assessment Evaluation Level of Assist On Stairs Contact Guard Assistance Devices Stair Climbing Assistive Devices Front Wheel Walker Technique/Endurance Stair Climbing Direction Ascend and Descend Stair Climbing Technique Step to Step Number of Steps Climbed 1 Stair Climbing Set # Repetitions (reps) 2 Comments Stair Climbing Comments see mobility comments PT-Balance Assessment Sitting Balance and Reactions Static Sitting Balance Ability Normal Dynamic Sitting Balance Ability Good Standing Balance and Reactions Static Standing Balance Ability Good Dynamic Standing Balance Ability Fair Device Used FWW, 4WW M5 PT-IP Objective Assessments Start: 12/28/20 12:38 Freq: NEEDED Status: Active Protocol: Document 12/28/20 09:20 AB (Rec: 12/28/20 12:54 AB [id number]) Orientation Orientation/Cognition Level of Alertness Alert Orientation Name,Place,Situation Language Function Ability Hard of Hearing Safety Awareness Decreased Safety Awareness Memory Description Short Term Impaired Gross Range of Motion Lower Extremity ROM Assessment Left Impaired Impairments limited due to c/o increase pain with increase resistance Strength Lower Extremity Strength Assessment Left Impaired Hip 2+/5 Knee 3+/5 Muscle Tone Muscle Tone WNL Yes M6 PT-IP Treatment Start: 12/28/20 12:38 Freq: NEEDED Status: Active Protocol: Document 12/29/20 09:03 SP (Rec: 12/29/20 11:02 SP [id number]) Physical Therapy Treatment Exercises Exercises Ankle Pumps,Gluteal Sets,Quad Sets,Heel Slides Knee ROM Measurement 80 deg w/ strap Education Education Provided Precautions,Weight Bearing Status,Safety M7 PT-IP Assessment and Plan Start: 12/28/20 12:38 Freq: NEEDED Status: Active Protocol: Document 12/29/20 09:03 SP (Rec: 12/29/20 11:02 SP [id number]) PT Summary Assessment and Plan Potential Rehabilitation Potential Fair Status of Condition at Evaluation Evolving Summary Impairments Pain,ROM,Strength,Balance, Coordination,Sensation,Tone, Cognition,Bed Mobility, Transfers,Gait,Activity Tolerance Progress Towards Goals Progressing Toward Goals,Slow Progress due to Pain,Slow Progress due to Activity Tolerance Assessment Summary Pt continues c/o 1-3 pain over L quad, better controlled this tx. SBA bed mob and scoot to EOB w/ strap on LLE, Sits>stand and gait hallway distance 300ft using fWW, 4WW and completed PF step mgt with fWW. Pt stated willget FWW from friend in mean time but was safe using 4WW this tx.Pt is ok to return home with to assist when medically cleared. Pt is already set up with outpt therapy. Goals Bed Mobility Goal Standby Assistance Transfer Goal Standby Assistance,Front Wheeled Walker Gait Goal Standby Assistance,Front Wheel Walker Gait Distance 150 Other Goals up/down 2 platform steps using FWW/4WW SBA improve ambulation using 4WW 200 ft SBA Days to Meet Goals 5 Frequency of Treatment Frequency Of Treatment Twice a Day Treatment Plan Physical Therapy Treatment Plan Bed Mobility Training,Transfer Training,Gait Training, Therapeutic Exercise,Balance Retraining,Post Op Education, Discharge Planning,Hot or Cold Pack,Neuromuscular Re-ed, Coordination Retraining,Manual Therapy Other Recommendations and Next Treatment Post op ex, transfers, gait Focus fWW/ 4WW. Precautions Anterior Hip Precautions No Hip Extension,No Hip External Rotation Recommendations To Nursing Amount of Assist Needed Standby Assistance,1 Person Assist Discharge Recommendations PT Discharge Recommendations Home with Assistance, Outpatient PT Equipment Needed for Home Before FWW will get from friend but Discharge safe to use 4WW. Transportation Needs at Discharge Private Vehicle
[2020-12-29 10:07] VITALS: BP 139/64; PULSE 84; RESP 18; O2SAT 97
[2020-12-29 10:08] VITALS: TEMP 36.7
[2020-12-29] MEDS: OXYCODONE IR 5 MG TABLET PO (13:32)
--- NOTE | 2020-12-29 14:00 | PC.NURSE ---
Discharge instructions and home care handouts reviewed with patient and his , they state understanding and have no further questions or concerns at this time. Cleared for discharge by PT. Ruslanel dressing CDI. IV removed. Patient states he has follow up appointment with ortho scheduled. Instructed to call surgeon with questions or concerns, or to seek care for new or worsening symptoms. Patient notes he has plan set up with coumadin clinic for lovenox and warfarin until thursday when he will have his INR drawn. Education on narcotic safety and prescriptions re- inforced. Patient escorted out via wheelchair with all belongings to home with his .
== END 2020-12-29 13:40 | disposition home or self-care (01) ==
LOC: OR 14:37 → AC 14:37
PROVIDERS: Admitting Provider Orthopaedic Surgery Adult Reconstructive Orthopaedic Surgery; Family Provider Internal Medicine; PCP Internal Medicine; Referring Provider Orthopaedic Surgery; Visit Provider Orthopaedic Surgery Adult Reconstructive Orthopaedic Surgery
PROC: (CPT 27130; principal; 2020-12-27 10:45)
DX: M87.052 Idiopathic aseptic necrosis of left femur (principal); Z86.711 Personal history of pulmonary embolism; Z79.01 Long term (current) use of anticoagulants; K21.9 Gastro-esophageal reflux disease without esophagitis; I10 Essential (primary) hypertension; K50.90 Crohn's disease, unspecified, without complications
CPT/HCPCS: 27130; 36415; 72170; 73502; 76000; 85014; 85018; 85610; 97116; 97162; 97530; C1776; G0378; J0330; J0690; J1100; J1170; J1650; J1885; J2250; J2270; J2274; J2405; J2704; J3010

== ENCOUNTER → 2021-08-11 12:27 | Outpatient (CLI) | payer MEDICARE, OTHER, SELFPAY ==
[2020-12-27 15:41] VITALS: BMI 23.6
--- NOTE | 2021-08-11 12:29 | DI.MRI.S_ITS ---
PROCEDURE: MR WRIST LT WO CON INDICATIONS: Stiffness of left wrist, not elsewhere classified TECHNIQUE: Noncontrast coronal proton density fast spin echo and T2 fast spin echo with fat saturation; coronal 3-D gradient echo, axial T1 spin echo and T2 fast spin echo with fat saturation, sagittal T1 spin echo through the wrist. COMPARISON: [facility] Outside Film, CR, XR WRIST 3+ VIEWS LEFT, 07/30/2021, 9:01. FINDINGS: Image quality: There is inhomogeneous fat saturation limiting evaluation. Bones and cartilage: The carpal bones are normally aligned. No bone marrow contusions or fractures. No evidence for avascular necrosis. Overlying cartilage surfaces appear grossly preserved. Carpal ligaments: The scapholunate and lunotriquetral ligaments appear intact. In the absence of intra-articular contrast, the extrinsic carpal ligaments are not well identified. On sagittal images, the pisohamate ligament appears intact. Triangular fibrocartilage complex: The triangular fibrocartilage demonstrates mild degenerative signal. The adjacent meniscal homolog also demonstrates mild degenerative signal. The extensor carpi ulnaris tendon is normal in location and morphology with a small amount of tenosynovial fluid consistent with tenosynovitis. There is also mild adjacent peritendinous edema. The ulnar joint capsule is attenuated in appearance. There is adjacent subcutaneous edema along the ulnar aspect of the wrist and a loculated fluid collection along the volar ulnar aspect of the radiocarpal joint measuring up to 0.9 x 0.4 x 1.0 cm consistent with a ganglion cyst. Tendons and soft tissues: The carpal tunnel structures appear normal in morphology, including the median nerve. There is mild peritendinous edema along the flexor tendons within the carpal tunnel. The ulnar nerve appears normal within Guyon's canal. All six extensor tendon compartments demonstrate normal morphology, without pathologic tendon sheath fluid. No soft tissue ganglion cysts. IMPRESSION: 1. Attenuated appearance of the ulnar aspect of the wrist with associated subcutaneous edema suggesting sequelae of a capsular sprain. Mild adjacent peritendinitis and tenosynovitis of the ECU tendon demonstrated as well as a ganglion cyst along the volar ulnar aspect of the wrist 2. Mild peritendinous edema along the flexor tendons within the carpal tunnel. Recommend correlation clinically for possible carpal tunnel syndrome. Dictated by: Tito Wheeler M.D. on 08/12/2021 at 10:11 Approved by: Tito Wheeler M.D. on 08/12/2021 at 10:46
== END ==
PROVIDERS: Family Provider Internal Medicine; PCP Internal Medicine; Referring Provider Orthopaedic Surgery; Visit Provider Orthopaedic Surgery
DX: M67.432 Ganglion, left wrist (principal); M65.832 Other synovitis and tenosynovitis, left forearm; M25.632 Stiffness of left wrist, not elsewhere classified
CPT/HCPCS: 73221

== ENCOUNTER → 2021-08-12 13:03 | Outpatient (CLI) | payer MEDICARE, OTHER, SELFPAY ==
[2020-12-27 15:41] VITALS: BMI 23.6
[2021-08-12 14:40] LABS: COVID19 -Nasal RAPID Negative (Negative)
== END ==
PROVIDERS: Family Provider Internal Medicine; PCP Internal Medicine; Visit Provider Family Medicine Sleep Medicine
DX: Z20.822 Contact with and (suspected) exposure to COVID-19 (principal)
CPT/HCPCS: 87635; C9803

== ENCOUNTER 2021-08-14 12:37 | Day surgery (SDC) | payer MEDICARE, OTHER, SELFPAY ==
[2020-12-27 15:41] VITALS: BMI 23.6
--- NOTE | 2021-08-14 | PATH_ITS ---
[facility] Accession Number: [id number] . 01 Material submitted: . PART A: duodenum - DUODENUM PART B: gastrointestinal site - STOMACH . 01 Clinical history: . A: R/O CELIAC B: R/O H.PYLORI . 02 Diagnosis: A. Duodenum, Biopsy: Duodenal mucosa with no diagnostic abnormality. Negative for active inflammation, features of sprue, dysplasia, or malignancy. . B. Stomach, Biopsies: Gastric antral and body mucosa with mild chronic inflammation. Negative for Helicobacter organisms by immunohistochemistry. Negative for intestinal metaplasia. Negative for dysplasia or malignancy. [facility] 08/20/2021 1315 Local . 02 Electronically signed: . Iron Monroe MD, PhD, Pathologist NPI- [id number] . 01 Gross description: . Part A: DUODENUM: Received in formalin are 2 fragment(s) of carbajal, soft tissue measuring 0.4 x 0.3 x 0.3 cm to 0.1 x 0.1 x 0.1 cm submitted entirely in 1 cassette(s) Part B: STOMACH: Received in formalin are 2 fragment(s) of carbajal, soft tissue measuring 0.3 x 0.3 x 0.2 cm to 0.2 x 0.1 x 0.1 cm submitted entirely in 1 cassette(s) /[facility] 08/16/2021 1114 Local . 02 Microscopic: . B. An immunohistochemical stain is performed to evaluate for Helicobacter organisms and is negative. The control stain showed appropriate reactivity. . * This test was developed and its performance characteristics determined by [facility]. It has not been cleared or approved by the U.S. Food and Drug Administration. The FDA has determined that such clearance or approval is not necessary. This test is used for clinical purposes. It should not be regarded as investigational or for research. . 02 Pathologist provided ICD-10: K29.70 . 02 CPT . 431362, 558310, C32754 Specimen Comment: A courtesy copy of this report has been sent to [phone] Performed at: 01 [facility] [address] [id number] MD Tito Jacobsen MD Phone: [phone] Performed at: 02 [place] [id number] [address] [place] [address] [id number] MD Reyna Guerrero MD Phone: [phone]
[2021-08-14] MEDS: SODIUM CHLORIDE 0.9% 1,000 ML 84 ML IV (13:09)
[2021-08-14 13:19] VITALS: BP 158/88; PULSE 71; RESP 18; TEMP 36.8; O2SAT 97; BMI 24.1
--- NOTE | 2021-08-14 13:45 | PM.PREOP ---
Pre-operative Note COVID-19 COVID-19 status: Negative Interval Note History & Physical reviewed/Exam performed by Physician: Yes Changes to H&P: No ASA Class (for procedural sedation): II
--- NOTE | 2021-08-14 13:46 | PM.PREOP ---
Pre-operative Note COVID-19 COVID-19 status: Negative Interval Note History & Physical reviewed/Exam performed by Physician: Yes Changes to H&P: No ASA Class (for procedural sedation): II
--- NOTE | 2021-08-14 13:47 | PM.OP.EC ---
Operative Date/Time/Diagnoses Date of procedure: 08/14/21 Pre-op diagnosis: See indication and findings Procedure & Clinicians Study performed: EGD and colonoscopy Indications: Unintentional weight loss and personal history of Crohn's disease Surgeon: Aimee Lara Procedure Notes Procedure in detail: After informed consent was obtained patient was placed in left lateral decubitus position. The video upper scope placed into the oropharynx and with the patient's help swallowed into the esophagus. The esophagus stomach and duodenum were carefully examined. On withdrawal retroflexed view the GE junction was accomplished. The scope was removed. The patient tolerated procedure well. The patient was turned and the colonoscope substituted. This was passed through the rectum to the cecum and into the IC valve. On slow withdrawal mucosa was carefully examined. The scope was removed. The patient tolerated procedure well. Blood loss none Complications none Sedation mac Findings EGD 1. Normal esophagus 2. Mild erythema in the antrum in a patchy fashion. Biopsies taken to rule out Helicobacter 3. Normal duodenal bulb and sweep biopsies taken to rule out celiac Colonoscopy 1. Colonic mucosa completely normal to the anastomosis. 2. Anastomosis at the panic flexure shows an end-to-side anastomosis with absolutely no inflammation. 3. Terminal ileum was evaluated to 15 cm from the anastomosis Patient should follow-up with Dr. Davis
[2021-08-14 14:22] VITALS: BP 104/59; PULSE 68; RESP 14; TEMP 36.8; O2SAT 94
[2021-08-14 14:27] VITALS: BP 135/76; PULSE 63; RESP 15; O2SAT 96
[2021-08-14 14:32] VITALS: BP 131/71; PULSE 63; RESP 16; O2SAT 95
[2021-08-14 14:44] VITALS: BP 138/74; PULSE 68; RESP 15; O2SAT 97
[2021-08-14 14:55] VITALS: BP 143/71; PULSE 69; RESP 12; TEMP 36.1; O2SAT 99
== END 2021-08-14 15:05 | disposition home or self-care (01) ==
PROVIDERS: Family Provider Internal Medicine; PCP Internal Medicine; Referring Provider Internal Medicine Gastroenterology; Visit Provider Internal Medicine Gastroenterology
PROC: 0DJ08ZZ Inspection of Upper Intestinal Tract, Via Natural or Artificial Opening Endoscopic (ICD-10-PCS; CPT 43235; principal; 2021-08-14 14:00)
PROC: 0DJD8ZZ Inspection of Lower Intestinal Tract, Via Natural or Artificial Opening Endoscopic (ICD-10-PCS; CPT 45378; 2021-08-14 14:00)
DX: K29.50 Unspecified chronic gastritis without bleeding (principal); Z87.19 Personal history of other diseases of the digestive system; R63.4 Abnormal weight loss; K50.80 Crohn's disease of both small and large intestine without complications; K21.9 Gastro-esophageal reflux disease without esophagitis; E78.5 Hyperlipidemia, unspecified; I10 Essential (primary) hypertension
CPT/HCPCS: 43239; 45378; J2704

== ENCOUNTER 2022-03-09 21:02 | Emergency (ER) | payer MEDICARE, OTHER, SELFPAY ==
[2020-12-27 15:41] VITALS: BMI 23.6
[2022-03-09 21:13] VITALS: BP 170/79; PULSE 64; RESP 18; TEMP 37.1; O2SAT 98; BMI 25.2
--- NOTE | 2022-03-09 21:25 | PC.NURSE ---
Pt came in for right side under eye pain. It is swollen and pt reports 7/10 pain. His left eye is red and pt states that is normal and happens about two times a year, does not hurt.
--- NOTE | 2022-03-09 21:36 | ED_ITS ---
HPI - General Adult General Chief complaint: Eye Problems Stated complaint: Eye problems Time Seen by Provider: 03/09/22 21:17 Source: patient Mode of arrival: Ambulatory Limitations: no limitations History of Present Illness HPI narrative: 71-year-old male is here for evaluation of a couple days of increasing redness and irritation to the right lower eyelid. Denies any trauma. He is on methotrexate and also prednisone for other unrelated issues. No vision deficits. Related Data Home Medications Medication Instructions Recorded Confirmed cyclobenzaprine 10 mg tablet 10 mg PO TID PRN Muscle Spasm ##0 09/08/11 08/14/21 omeprazole 20 mg tablet,delayed 20 mg PO DAILY ##0 09/08/11 08/14/21 release aspirin 81 mg tablet,delayed 81 mg PO DAILY 04/13/19 08/14/21 release (Yuan Low Dose Aspirin) cholecalciferol (vitamin D3) 25 1,000 unit PO DAILY 04/13/19 08/14/21 mcg (1,000 unit) capsule (Vitamin D3) hydrochlorothiazide 12.5 mg capsule 12.5 mg PO DAILY 04/13/19 08/14/21 atorvastatin 40 mg tablet 40 mg PO BEDTIME 12/18/20 12/27/20 warfarin 5 mg tablet 5 mg PO SEEINSTR 12/18/20 08/14/21 Previous Rx's Medication Instructions Recorded acetaminophen 325 mg tablet 650 mg PO TID #90 tabs 12/29/20 Allergies Allergy/AdvReac Type Severity Reaction Status Date / Time hydrocodone Allergy Severe Welts, Verified 08/14/21 13:11 sweats, loss of appetite adhesive tape Allergy Mild Rash Verified 08/14/21 13:11 sulfamethoxazole Allergy Mild Rash Verified 08/14/21 13:11 [From ] trimethoprim [From ] Allergy Mild Rash Verified 08/14/21 13:11 Review of Systems Constitutional Constitutional: Reports system reviewed and no additional complaints, except as documented Eyes Eyes: Reports system reviewed and no additional complaints, except as documented ENT Ears, Nose, Mouth, and Throat: Reports system reviewed and no additional c omplaints, except as documented Integumentary/Breasts Skin/Breast: Reports system reviewed and no additional complaints, except as documented Patient History Medical History Anxiety Arthritis Depression Diverticulitis DJD (degenerative joint disease) Eczema GERD (gastroesophageal reflux disease) Hearing impaired HTN (hypertension) 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9) Pulmonary embolism Spinal stenosis Surgical History History of vasectomy Hx of fusion of cervical spine (~2013) Hx of hernia repair Hx of tonsillectomy S/P epidural steroid injection Social History household members: spouse Smoking Status: Former smoker alcohol intake: former Smoking Status: Former smoker Substance Use Type: marijuana Exam Initial Vital Signs Initial Vital Signs: Vital Signs Temperature 98.7 F 03/09/22 21:13 Pulse Rate 64 03/09/22 21:13 Respiratory Rate 18 03/09/22 21:13 Blood Pressure 170/79 H 03/09/22 21:13 Pulse Oximetry 98 03/09/22 21:13 Oxygen Delivery Method 03/09/22 21:13 Const General: cooperative and comfortable HENMT Head: normal to inspection and normocephalic Nose: external nose normal Face and sinus: normal facial exam Eyes Periorbital: periorbital findings abnormal right periorbital tenderness (Right lower) and periorbital erythema (Right lower) Eyelids: eyelid abnormality right lower eyelid (Hordeolum) Conjunctivae: conjunctival abnormality left subconjunctival hemorrhage Pupils: PERRL Course Vital Signs Vital signs: Vital Signs - 8 hr 03/09/22 21:13 03/09/22 21:43 Temperature 98.7 F Pulse Rate 64 Respiratory Rate 18 Blood Pressure 170/79 H 159/75 H Pulse Oximetry 98 Oxygen Delivery Method Room Air Medical Decision Making [facility] Narrative Medical decision making narrative: Is presenting symptoms today are consistent with a stye located in the right lower eyelid. There is some surrounding redness however not consistent with cellulitis. There is no indication for antibiotics. He does have a incidental finding of a subconjunctival hemorrhage on the left eye. He is not specifically here for this. He states that he gets these every now and then and they resolve on their own. He is on anticoagulation because of a prior pulmonary embolism. We did discuss warm compresses and light massage of the area. There is no indication for antibiotics based on his exam today however he was informed that if the redness worsens or she were to develop new symptoms he should return for further evaluation. He expressed understanding and agreement. Discharge Plan Departure Patient Disposition: Home Clinical Impression: Stye Instructions: DI for Hordeolum Activity Restrictions/Additional Instructions: I do recommend that you continue with the warm compresses in the massage like we discussed. Keep your appointment with your associate publisher that you already have scheduled. Return to the emergency department for any new or worsening symptoms. Prescriptions: No Action omeprazole 20 MG tablet,delayed release (DR/EC) 20 mg PO DAILY Qty: 0 Label Comments: Takes around 1530 cyclobenzaprine 10 MG tablet 10 mg PO TID PRN (Reason: Muscle Spasm) Qty: 0 aspirin [Yuan Low Dose Aspirin] 81 mg Tablet,Delayed Release (Dr/Ec) 81 mg PO DAILY cholecalciferol (vitamin D3) [Vitamin D3] 1,000 unit Capsule 1,000 unit PO DAILY hydrochlorothiazide 12.5 mg Capsule 12.5 mg PO DAILY atorvastatin 40 mg Tablet 40 mg PO BEDTIME warfarin 5 mg Tablet 5 mg PO SEEINSTR Rx Instructions: 5mg alt w/7.5mg daily acetaminophen 325 mg Tablet 650 mg PO TID Qty: 90 0RF Referrals: Candace Vinson MD [Primary Care Provider] - Visit Report Forms: Patient Portal/API
[2022-03-09 21:43] VITALS: BP 159/75
== END 2022-03-09 21:43 | disposition home or self-care (01) ==
PROVIDERS: Emergency Provider Emergency Medicine; Family Provider Internal Medicine; PCP Internal Medicine
DX: H00.012 Hordeolum externum right lower eyelid (principal)
CPT/HCPCS: 99281; 99282

== ENCOUNTER → 2022-11-21 15:52 | Outpatient (CLI) | payer MEDICARE, OTHER, SELFPAY ==
[2020-12-27 15:41] VITALS: BMI 23.6
--- NOTE | 2022-11-21 | DI.MRI.S_ITS ---
PROCEDURE: MR LUMBAR SPINE WO CON INDICATIONS: Intervertebral disc disorders, lumbar region TECHNIQUE: Noncontrast sagittal T1 spin echo and T2 fast echo, sagittal STIR, and T2 fast spin echo through the lumbar spine. In cases with scoliosis, additional coronal T2 fast spin echo may be performed. COMPARISON: [facility], MR, L-SPINE WITHOUT CONTRAST, 05/26/2017, 14:43. FINDINGS: Image quality: Excellent. Alignment and Curvature: There is normal bony alignment. Bone Marrow: Intraosseous hemangioma is redemonstrated at T12. Marrow is of otherwise normal overall signal. No acute vertebral body compression fractures. Spinal Cord: Conus medullaris terminates at the L1 level. Visualized cord demonstrates normal signal and size. Paraspinous Soft Tissues: No paravertebral masses. T12-L1: Normal appearance. L1-L2: Normal appearance. L2-L3: Mild disc desiccation. Broad-based disc bulge. Mild facet ligamentum flavum hypertrophy. No canal stenosis. No neural foraminal narrowing. L3-L4: Severe disc desiccation and height loss. Broad-based disc bulge. Moderate facet ligamentum flavum hypertrophy. Mild canal stenosis. Moderate bilateral foraminal stenosis. These findings have slightly increased in when compared with the study dated May 26, 2017. L4-L5: Moderate disc desiccation and height loss. Broad-based disc bulge. Severe facet ligamentum flavum hypertrophy. There is a 0.6 x 0.6 x 1.0 cm right paracentral disc protrusion. This is slightly increased in size when compared with the prior study from 2017. There is narrowing of the right lateral recess and this disc protrusion abuts the exiting nerve root. Severe canal stenosis. No neural foraminal stenosis. L5-S1: Mild disc desiccation and height loss. Broad-based disc bulge. Moderate facet ligamentum flavum hypertrophy. No canal stenosis. Mild bilateral foraminal narrowing. IMPRESSION: 1. Right paracentral L4-5 disc protrusion with narrowing of the right lateral recess and probable abutment of the exiting nerve root at L4-5. Findings are slightly increased in severity when compared with the study dated May 26, 2017. 2. Severe L4-5 canal stenosis, as before. 3. Moderate bilateral foraminal stenosis and mild canal stenosis at L3-4 slightly increased in severity from the prior study. Dictated by: Afshan Valenzuela M.D. on 11/21/2022 at 18:21 Approved by: Afshan Valenzuela M.D. on 11/21/2022 at 18:43
== END ==
PROVIDERS: Family Provider Internal Medicine; PCP Nurse Practitioner Family; Referring Provider Physical Medicine & Rehabilitation Pain Medicine; Visit Provider Physical Medicine & Rehabilitation Pain Medicine
DX: M51.16 Intervertebral disc disorders with radiculopathy, lumbar region (principal); M48.061 Spinal stenosis, lumbar region without neurogenic claudication
CPT/HCPCS: 72148

== ENCOUNTER → 2023-03-31 18:19 | Outpatient (CLI) | payer MEDICARE, OTHER, SELFPAY ==
[2020-12-27 15:41] VITALS: BMI 23.6
--- NOTE | 2023-03-31 | DI.MRI.S_ITS ---
PROCEDURE: MR SHOULDER LT WO CON INDICATIONS: Rotator cuff tear or rupture of left shoulder TECHNIQUE: Noncontrast oblique coronal T2 fast spin echo with fat saturation, oblique sagittal T1 spin echo and T2 fast spin echo with fat saturation, axial T1 spin echo and T2 fast spin echo with fat saturation through the shoulder. COMPARISON: [facility], MR, MR SHOULDER LT WO CON, 05/21/2020, 7:06. FINDINGS: Image quality: Excellent. Rotator cuff: Low to moderate grade articular and bursal surface partial thickness tear involving distal supraspinatus at its insertion on the humeral head is seen extending to musculotendinous junction. Low-grade articular surface partial-thickness tear involving distal infraspinatus at its insertion on the humeral head is also seen. Distal subscapularis tendinosis. No full-thickness rotator cuff tendon rupture. Sagittal images demonstrate very mild supraspinatus muscle atrophy. Bones and bursae: No bone marrow contusions or fractures. Moderate acromioclavicular joint osteoarthritic changes are noted with joint space narrowing, subchondral sclerosis and downward osteophyte formation depressing the musculotendinous junction of supraspinatus. Mild to moderate glenohumeral joint osteoarthritic changes also seen with joint space narrowing, subchondral sclerosis and cyst formation. The acromion demonstrates conventional anatomy, without an os acromiale. Small amount of subacromial subdeltoid bursal fluid is seen, no gross loose bodies. Capsule and soft tissues: Fraying of posterior superior labrum with T2 hyperintense signal at 9 to 10 o'clock position is seen concerning for posterior superior labral tear. Similar signal abnormality involving anterior inferior labrum at 5 to 6 o'clock position is also noted. The long head of the biceps tendon appears thickened. The rotator interval appears normal, without fibrosis. The coracohumeral ligament is normal in thickness. IMPRESSION: 1. Low to moderate grade articular and bursal surface partial thickness tear involving distal supraspinatus extending to musculotendinous junction. Low-grade articular surface partial-thickness tear involving distal infraspinatus. Distal subscapularis tendinosis. No full-thickness rotator cuff tendon rupture. Very mild supraspinatus muscle atrophy. 2. Moderate acromioclavicular joint and glenohumeral joint osteoarthritis. No fracture or dislocation. Small amount of subacromial subdeltoid bursal fluid. No gross loose bodies. 3. Finding is concerning for posterior superior labral tear at 9 to 10 o'clock position and anterior-inferior labral tear at 5 to 6 o'clock position. 4. Proximal intra-articular portion of long head of biceps tendinosis. Dictated by: Jt Rosado M.D. on 04/01/2023 at 8:24 Approved by: Jt Rosado M.D. on 04/01/2023 at 8:29
== END ==
PROVIDERS: Family Provider Internal Medicine; PCP Nurse Practitioner Family; Referring Provider Orthopaedic Surgery; Visit Provider Orthopaedic Surgery
DX: M75.112 Incomplete rotator cuff tear or rupture of left shoulder, not specified as traumatic (principal); M19.012 Primary osteoarthritis, left shoulder
CPT/HCPCS: 73221

== ENCOUNTER → 2023-04-14 10:47 | Outpatient (CLI) | payer MEDICARE, OTHER, SELFPAY ==
[2020-12-27 15:41] VITALS: BMI 23.6
[2023-04-14 13:03] LABS: Add Manual Diff / Slide Review NO; Basophils Absolute Auto 100 /uL (0-100); Basophils Percent Auto 2.2 % (0-2); Eosinophils Absolute Auto 300 /uL (0-450); Eosinophils Percent Auto 6.9 % (2-4); Hematocrit 38.4 % (41-53); Hemoglobin 13.1 g/dL (13.5-17.5); Lymphocytes Absolute Auto 1200 /uL (1100-4500); Lymphocytes Percent Auto 25.9 % (25-40); Mean Corpuscular Hemoglobin 32.5 PG (26-34); Mean Corpuscular Volume 95.5 fL (80-100); Monocytes Absolute Auto 500 /uL (0-900); Monocytes Percent Auto 11.4 % (3-14); Neutrophils Absolute Auto 2500 /uL (1500-7000); Neutrophils Percent Auto 53.6 % (50-75); Platelet Count 229 X10^3/uL (150-400); Red Blood Cell Count 4.02 X10^6/uL (4.5-5.9); White Blood Cell Count 4.7 X10^3/uL (4.5-11.0)
[2023-04-14 13:34] LABS: Hemoglobin A1C% w Est Avg Glu 5.7 % (4.0-6.0)
== END ==
PROVIDERS: Family Provider Internal Medicine; PCP Nurse Practitioner Family; Referring Provider Orthopaedic Surgery Orthopaedic Surgery of the Spine; Visit Provider Orthopaedic Surgery Orthopaedic Surgery of the Spine
DX: Z01.818 Encounter for other preprocedural examination (principal); R73.9 Hyperglycemia, unspecified; Z01.812 Encounter for preprocedural laboratory examination
CPT/HCPCS: 36415; 83036; 85025; 93005

== ENCOUNTER 2023-04-22 12:14 | Inpatient (IN) | payer MEDICARE, OTHER, SELFPAY ==
[2020-12-27 15:41] VITALS: BMI 23.6
[2023-04-16 08:44] VITALS: BMI 25.1
[2023-04-22] VITALS (16 sets, daily range): BP systolic 109–177; BP diastolic 56–91; PULSE 60–76; RESP 10–19; TEMP 36.2–37.1; O2SAT 90–100; BMI 25.1
--- NOTE | 2023-04-22 | DI.RAD.S_ITS ---
PROCEDURE: XR LUMBAR SPINE 2-3V INDICATIONS: L4-5 TLIF TECHNIQUE: 2 intraoperative fluoroscopic images COMPARISON: None. FINDINGS: Two intraoperative fluoroscopic images of L4-5 posterior fusion hardware with interbody disc spacer is provided for nondiagnostic interpretation. Please see operative report for details. IMPRESSION: Two intraoperative fluoroscopic images of L4-5 posterior fusion hardware with interbody disc spacer. Please see operative report for details. Dictated by: Lb Mauricio M.D. on 04/22/2023 at 18:52 Approved by: Lb Mauricio M.D. on 04/22/2023 at 18:52
--- NOTE | 2023-04-22 12:45 | SUR.OPER ---
Prone on spine table, head in foam head support, padded chest and pelvic supports, gel pad at knees, lower legs supported by pillows; nipples, genitalia and toes free of pressure, arms secured on foam padded arm boards at <90 degrees abduction. Tape over blanket at thigh secured to table.
[2023-04-22] MEDS: LACTATED RINGERS 1,000 ML 100 ML IV ×2 (13:23→15:54)
--- NOTE | 2023-04-22 13:37 | PM.PREOP ---
Pre-operative Note Interval Note History & Physical reviewed/Exam performed by Physician: Yes Changes to H&P: No H&P completed within 30 days and has changed as indicated here:: Patient is off of coumadin for presurgery planning since 1 week ago. Today's INR is 1.1 done in pre-op. Patient is medically optimized to proceed.
[2023-04-22] MEDS: CEFAZOLIN 2 GM/100 ML PREMIX 100 ML IV ×2 (13:58→21:04)
[2023-04-22] MEDS: BUPIVACAINE LIPOSOME 266 MG/20 ML VIAL INJ (14:19)
[2023-04-22] MEDS: BUPIVACAINE 0.25% (PF) 30 ML, EPINEPHrine 0.15 MG INJ (14:20)
--- NOTE | 2023-04-22 16:22 | PM.OP.1 ---
Operative Date/Time/Diagnoses Date of procedure: 04/22/23 Time of procedure: 13:45 Pre-op diagnosis: 1. L4-5 lateral recess stenosis with radiculopathy 2. L4-5 disc herniation Post-op diagnosis: same Procedure & Clinicians Procedure: 1. L4-5 Postero-lateral and posterior interbody fusion 2. L4-5 interbody cage placement. 3. L4-5 decompressive laminectomy with bilateral facetecomies 4. L4-5 Posterior non-segmental instrumentation 5. [place] of bone marrow from iliac crest 6. Utilization of microsurgical technique and operating microscope Same procedure as scheduled: Yes Indications: Patient has been having acute onset severe back pain and worsening lumbar radiculopathy. He is unable to sit, walk, sleep or stand without being in severe pain. His pain radiates down his right leg with pain, numbness and weakness in his right leg that is worsening over time. Patient failed multiple conservative management with worsening pain weakness and numbness in his lower extremity. Patient has been having difficulty performing activity of daily living. After discussing risks benefits of treatment options, patient elected proceed with surgery. Surgeon: Damari Farr Trimmer Machine: Stephanie Luo Click Yes if Unassisted: No Anesthesia Type: General Operative Notes Closure Type: primary Estimated Blood Loss (mL): 30 Blood products transfused: none Procedure in detail: Patient was seen in the preoperative area. Risks and benefits of the surgery was discussed with the patient. Informed consent was obtained from the patient and placed in the chart. Surgical site was marked. Patient was taken to the operative room. General anesthesia was administered. Prophylactic antibiotic was given to the patient less than 30 min before the incision was made. Patient was placed into a prone position on the [place] table. Patient's back was then prepped and draped in the sterile fashion. Time-out was performed at this time. Using AP and lateral C-arm imaging the interval between L4-5 was identified and marked on patient's back. A 2 inch incision 2 in from midline was made on the right side first. The fascia was incised in line with skin incision. Globus MARS retractors was placed inside the incision and docked onto the L4 lamina. Using microsurgical technique and operating microscope, a L4 laminectomy and L4-5 facetectomy was performed using a Kerrison rongeur. The laminectomy and facetectomy was performed in order to decompress patient's cauda equina as well as the nerve roots exiting at the L4-5 level. The disc space at L4-5 was identified. And a total diskectomy was performed at L4-5 level. Patient was found have centralized calcified disc at L4-5 level along with extruded disc on the right side severely impinging the L5 nerve root. The extruded disc and the calcified disc fragments were all removed in the process of decompression. The endplates were decorticated using a rasp and shaver. The total diskectomy and decortication was performed at L4-5 level in order to to accomplish a L4-5 fusion. The local bone from the laminectomy and facetectomy was saved for local bone grafting. After the total diskectomy and decortication was completed, DBM bone graft material was combined with local bone that was harvested earlier. At this time, a separate skin is incision was made over the iliac crest. A Jamshidi needle was inserted into the iliac crest through a separate skin incision. 5 cc of bone marrow aspiration was obtained through the separate skin incision using a Jamshidi needle from the iliac crest. The bone marrow aspiration was combined with local bone and the DBM bone grafting material. The bone grafting material was placed into the L4-5 interbody space along with a expandable cage. The cage was expanded to its maximum height using the torque limiting screwdriver. At this time a mirror image incision was made on the left side. The fascia was incised in line with the skin incision. Globus MARS retractor was inserted and docked onto the L4-5 posterolateral gutter. Using the power drill, posterior-lateral decortication was performed at L4-5 level until bleeding cortical bone was identified. The remaining bone grafting material was placed into the L4-5 posterior lateral gutter he order to accomplish posterolateral fusion at the L4-5 level. Using the double C-arm technique, pedicle screws were placed into the L4-5 pedicles bilaterally. This was done by placing the Jamshidi needle into the pedicles, then placing the guidewires over the Jamshidi needle, and finally placing the cannulated screws over the guidewires bilaterally. After the pedicle screws were placed, 2 titanium rods was locked into the heads of the pedicle screws using locking caps and torque limiting screwdriver. After all the hardware was placed, and confirmed with AP and lateral C-arm imaging, the wound was then irrigated with sterile normal saline and packed with Ray-Sariah gauze for 3 min to accomplish hemostasis. After the gauze was removed the deep fascia was closed with #1 Vicryl suture. The subcutaneous layer was closed with 2-0 Vicryl. The skin was closed with skin thomas. Patient tolerated the procedure well. There were no complications. The Operation could not have been safely performed without compromising the technical result or length of the procedure, without the assistance of a skilled surgical scrub technologist. The surgical scrub technologist was medically necessary for proper positioning, retraction and manipulation of instruments, proper exposure, surgical preparation, and manipulation of tissue. Neuro monitoring was performed during the entire procedure which was stable throughout the entire procedure. Complications: none Post-operative Condition: stable Disposition: PACU Plan for aftercare: Admit to inpatient hospital
[2023-04-22] MEDS: HYDROMORPHONE 1 MG INJ IV ×2 (16:45→16:58)
[2023-04-22] MEDS: ONDANSETRON 4 MG/2 ML INJ IV (16:45)
[2023-04-22] MEDS: hydrOXYzine 50 MG/ML INJ 25 MG IM (16:48)
[2023-04-22] MEDS: MEPERIDINE 50 MG/ML INJ 25 MG IV (17:12)
[2023-04-22] MEDS: OXYCODONE IR 5 MG TABLET PO (17:37)
[2023-04-22] MEDS: LACTATED RINGERS 1,000 ML 125 ML IV ×2 (18:15→21:04)
[2023-04-22] MEDS: MIRTAZAPINE 15 MG TABLET PO (21:14)
[2023-04-22] MEDS: ATORVASTATIN 20 MG TABLET 40 MG PO (21:15)
[2023-04-22] MEDS: GABAPENTIN 300 MG CAPSULE PO (21:15)
[2023-04-22] MEDS: DOCUSATE 100 MG CAPSULE PO (21:15)
[2023-04-22] MEDS: SENNOSIDES 8.6 MG TABLET 17.2 MG PO (21:23)
[2023-04-22] MEDS: PANTOPRAZOLE DR 20 MG TABLET PO (21:23)
[2023-04-22] MEDS: OXYCODONE IR 10 MG TABLET PO (22:19)
[2023-04-23 00:20] VITALS: BP 108/57; PULSE 73; RESP 18; TEMP 37; O2SAT 98
[2023-04-23] MEDS: HYDROMORPHONE 0.5 MG INJ IV ×2 (00:24→04:29)
[2023-04-23] MEDS: CEFAZOLIN 2 GM/100 ML PREMIX 100 ML IV (05:00)
[2023-04-23] MEDS: ONDANSETRON 4 MG ODT SL (06:24)
--- NOTE | 2023-04-23 07:36 | PM.PNPO.1 ---
Subjective Subjective Date Patient Seen: 04/23/23 Time Patient Seen: 07:37 Interval history: Pt sitting up in bed, complains of severe low back pain. Any movement causes pain. In review of MAR, he is written for APAP, oxycodone, hydroxyzine, and cyclobenzaprine PO as well as hydromorphone IV. At the time of my visit, he had received oxycodone and hydromorphone only once since surgery and had NOT received APAP, hydroxyzine, or cyclobenzaprine. Exam Vital Signs (past 8 hours): - 04/23/23 00:20 Temperature 98.6 F Pulse Rate 73 Respiratory Rate 18 Blood Pressure 108/57 L Pulse Oximetry 98 Oxygen Flow Rate 0 Oxygen Delivery Method Room Air Oxygen Flow Rate 0 Narrative Exam Narrative: 5/5 strength in hip flexors, quadriceps, hamstrings, DF, PF, EHL bilaterally. Sensation to light touch intact throughout BLE. Calves soft, compressible, nontender. Dressing placed intraoperatively is CDI. 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 Will change APAP and cyclobenzaprine to scheduled. Work w/ PT. Hopeful discharge home tomorrow. (2) Pulmonary embolism: Assessment and Plan narrative: Will restart warfarin and enoxaparin today. Postoperative Procedures: Procedures Operation Date: 04/22/23 14:15 Actual Procedure Side Surgeon p L4-5 TLIF Damari Farr MD Postoperative day: 1 Quality VTE Deep Vein Thrombosis/Pulmonary Embolism Present on Admission: No
[2023-04-23] MEDS: OXYCODONE IR 10 MG TABLET PO ×4 (07:48→23:58)
[2023-04-23] MEDS: ACETAMINOPHEN 325 MG TABLET 650 MG PO ×4 (07:49→22:13)
[2023-04-23 08:26] VITALS: BP 131/64; PULSE 80; RESP 19; TEMP 38.9; O2SAT 97
[2023-04-23] MEDS: CHOLECALCIFEROL (VITAMIN D3) 1,000 UNIT TABLET 1000 UNIT PO (09:17)
[2023-04-23] MEDS: FOLIC ACID 1 MG TABLET PO (09:17)
[2023-04-23] MEDS: GABAPENTIN 300 MG CAPSULE PO ×2 (09:17→20:29)
[2023-04-23] MEDS: DOCUSATE 100 MG CAPSULE PO ×2 (09:17→20:29)
[2023-04-23] MEDS: ENOXAPARIN 100 MG/ML SYRINGE 70 MG SUBCUT ×2 (09:34→20:29)
--- NOTE | 2023-04-23 09:58 | OT.IP.EVAL ---
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) Pulmonary embolism Spinal stenosis Surgical History (Last Updated 04/16/23 @ 08:45 by Denisse Dale RN) History of esophagogastroduodenoscopy (EGD) (08/14/21) 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) History of vasectomy Hx of colonoscopy (08/14/21) Hx of fusion of cervical spine (~2013) Hx of hernia repair Hx of tonsillectomy S/P epidural steroid injection Occupational Therapy Inpatient Evaluation/Re-Eval M1 PT/OT-IP Prior Functional Status Start: 04/23/23 10:03 Freq: NEEDED Status: Active Protocol: Document 04/23/23 10:04 [facility] (Rec: 04/23/23 10:28 [facility] [id number]) Medical Review Prior Functional Status Medical History Reviewed Yes Communication Independent Mobility and Gait Pt use of cane in the house and did not go outside. Activities of Daily Living and IADL's Pt's assisted with LB dressing needs due to his pain . Social History Household Members spouse Living Arrangements House Number of Floors (Floors) One Floor Number of Stairs To Enter/Railing? 2 platform steps Home Environment Standard Height Toilet,Tub/ Shower Home Equipment Front Wheel Walker,Four Wheel Walker,Straight Cane,Beef Cattle Farm Worker, Sock Aid,Grab Bars In Shower Additional Social History Comment Pt has a suction cup grab bar. M2 OT-IP Current Condition Start: 04/23/23 10:03 Freq: Status: Active Protocol: Document 04/23/23 10:04 [facility] (Rec: 04/23/23 10:28 [facility] [id number]) Occupational Therapy Current Condition Current Condition Evaluation Date 04/23/23 Treatment Diagnosis S/P L4-5 TLIF Diagnosis Onset Date 04/22/23 Post Operative Precautions Lumbar Precautions Log Roll,No Twisting,Limit Bending,Lifting Restriction of 10 lbs,Gait Belt above Incisional Area M3 OT- IP Subjective and Pain Start: 04/23/23 10:03 Freq: Status: Active Protocol: Document 04/23/23 10:04 [facility] (Rec: 04/23/23 10:28 [facility] [id number]) OT- Subjective Occupational Therapy Visit Type Type Initial Evaluation Visit Start Time 09:00 Visit Stop Time 09:58 Total Visit Minutes 58 Occupational Therapy Visit Comments Patient Comments Pt agreed to get up as having to use the bathroom. Patient/Caregiver Goals TO go home OT Pain Assessment Pain When Pain Assessed During Mobility Pain Present Pain Present Pain Reported Location low back and right side Intensity 8 Scale Used Numeric (0 - 10) Pain Behaviors Facial Grimacing,Guarding, Wincing M4 OT- IP ADL's Start: 04/23/23 10:03 Freq: Status: Active Protocol: Document 04/23/23 10:04 [facility] (Rec: 04/23/23 10:28 [facility] [id number]) OT [id number] General Evaluation Self-Feeding Ability Independent OT ADL-Grooming General Evaluation Grooming Ability Independent Areas Needing Assistance Retrieving/Set-up of Grooming Items Comments OT Grooming Comments Able to do while seated in the recliner. OT ADL-Oral Care General Eval Oral Care Ability Independent Areas of Assistance Retrieving/Set-Up of Items Comments Oral Care Comments Educated best to spit into the basin and not to round his back. Educated when standing to spit into a cup/basin or hinge at his hips to spit into the sink in order to best follow his back precautions. OT ADL-Dressing General Eval Lower Body Dressing Ability Maximum Assistance Comments OT Dressing Comments Pt insists that his to just assist him for now. OT ADL-Toileting General Evaluation Toileting Ability Standby Assistance,Minimal Assistance Areas Needing Assistance Manage Clothing Comments OT Toileting Comments Pt able to stand with the FWW over the toilet. Pt will need assist for clothing management at this time, pt aware. OT ADL-Bathing Comments OT Bathing Comments Not performed, suggested pt get a shower chair or tub bench. M5 OT- IP IADL's Start: 04/23/23 10:03 Freq: Status: Active Protocol: Document 04/23/23 10:04 [facility] (Rec: 04/23/23 10:28 [facility] [id number]) OT-Instrumental Activities of Daily Living Deficits IADL Deficits Identified Deficits Home Safety Awareness Awareness of Need for Assistance at Home Good Awareness Ability to Problem Solve Emergency Able to Problem Solve Situations Home Safety Comments Pt to assist at home for all his needs. Medication Management Medication Management Caregiver Provides Supervision Money Management Money Management Caregiver Provides Assistance Meal Preparation Meal Preparation Caregiver Provides Assist Sugar Trucker Sugar Trucker Caregiver Provides Assist M6 OT- IP Functional Cognition Start: 04/23/23 10:03 Freq: Status: Active Protocol: Document 04/23/23 10:04 [facility] (Rec: 04/23/23 10:28 [facility] [id number]) Cognitive Factors Limiting Selfcare Function Cognitive Ability Level of Alertness Alert Patient Orientation Name,Place,Situation Attention Span Ability Capable of Focused Attention, Capable of Sustained Attention ,Unable to Focus Ability to Follow Commands Able to Follow One Step Commands Safety Awareness Decreased Recall of Precautions,Decreased Ability to Apply Precautions Cognitive Comments Cognitive Assessment Comments Pt is a little hard of hearing and needing directions repeated. Pt not able to recall all his back precautions. Pt needing reminders to incorporate his back precautions.Pt having trouble focus due to his pain. At times pt is a bit impulsive however may be due to pt not being able to hear commands well. OT- Vision and Hearing OT- Hearing Assessment OT- Hearing Assessment Hearing Impaired OT- Vision Assessment Visual Acuity Glasses All The Time Vision Assessment Comments Pt is hard of hearing. M7 OT- IP Mobility and Balance Start: 04/23/23 10:03 Freq: Status: Active Protocol: Document 04/23/23 10:04 [facility] (Rec: 04/23/23 10:28 [facility] [id number]) OT- Bed Mobility Assessment Supine to Sit Supine to Sit Assist Contact Guard Assistance Sit to Supine Sit to Supine Assist Moderate Assistance Scooting Scooting to Edge of Bed Standby Assistance OT-Transfer Assessment Sit to and From Stand Sit to and from Stand Moderate Assistance Transfers Transfer Ability Minimal Assistance Technique Transfer Destination Bed,Chair Transfer Technique Stand Step Pivot Devices Transfer Assistive Devices Gait Belt,Front Wheeled Walker Comments Mobility Comments CGA to help get pt up from sidelying. MODA to help get pt 's legs back into bed. MODA to stand and vc to push on the bed to stand. Initiated caregiver training with for gait belt management, bed mobility and how to stand pt up . Pt's thinking to have pt sleep in the recliner initially. Once on his feet pt able to walk with FWW CGA. OT- Balance Assessment Sitting Balance and Reactions Static Sitting Balance Ability Good Dynamic Sitting Balance Ability Fair Standing Balance and Reactions Static Standing Balance Ability Fair Dynamic Standing Balance Ability Fair M8 OT- IP Objective Assessments Start: 04/23/23 10:03 Freq: Status: Active Protocol: Document 04/23/23 10:04 [facility] (Rec: 04/23/23 10:28 [facility] [id number]) OT Gross Range of Motion Upper Extremity Range of Motion Assessment Left Impaired OT Strength Upper Extremity Strength Assessment Left Impaired M9 OT- IP Assessment and Plan Start: 04/23/23 10:03 Freq: Status: Active Protocol: Document 04/23/23 10:04 [facility] (Rec: 04/23/23 10:28 [facility] [id number]) OT Summary Assessment and Plan Potential Rehabilitation Potential Good Analytic Complexity at Evaluation Low Summary OT Impairments Pain,Strength,Balance, Functional Mobility,Dressing, Toileting,Bathing,Toilet Transfers,Shower Transfers, Activity Tolerance Progress Towards Goals Slow Progress due to Pain Assessment Summary Pt low complexity and main barriers are pain, steps, and transitions. Pt has a very supportive to be able to assist him at home and OT already has initiated caregiver training with her. Goals Dressing Goal Minimal Assistance Toileting Goal Independent Bathing Goal Standby Assistance Toilet Transfer Goal Independent Shower Transfer Goal Standby Assistance Days to Meet Goals 3 Frequency of Treatment Frequency Of Treatment Once a Day Treatment Plan OT Treatment Plan ADL Training,Functional Mobility,Patient/Family Education,Discharge Planning Discharge Recommendations OT Discharge Recommendations Home with 08/12 Assist Available Home Equipment Needs shower chair/tub bench, hhsp Transportation Needs at Discharge Private Vehicle
--- NOTE | 2023-04-23 11:30 | PT-IP ANOTE ---
PT coordinated evaluation with OT who reported pt requested PT eval after 11 as he was scheduled his pain medication. PT checked on pt at 1130 and he has not yet received pain medication and his pain is too high to participate with assessment at this time. Will con't PT efforts.
[2023-04-23 12:12] VITALS: TEMP 38.8
--- NOTE | 2023-04-23 13:24 | PT.IIE ---
Current Diagnoses Other pulmonary embolism without acute cor pulmonale (04/22/23) Spinal stenosis, lumbar region with neurogenic claudication (04/22/23) Other intervertebral disc displacement, lumbar region (04/22/23) Arthrodesis status (04/22/23) Surgery Performed Operation Date: 04/22/23 14:15 Actual Procedures p L4-5 TLIF - Damari Farr MD Surgical History (Last Updated 04/16/23 @ 08:45 by Denisse Dale RN) History of esophagogastroduodenoscopy (EGD) (08/14/21) 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) History of vasectomy Hx of colonoscopy (08/14/21) Hx of fusion of cervical spine (~2013) Hx of hernia repair Hx of tonsillectomy S/P epidural steroid injection Medical History (Last Updated 04/23/23 @ 07:39 by Stephanie Luo PA-C) Anxiety Arthritis Depression Diverticulitis DJD (degenerative joint disease) Eczema GERD (gastroesophageal reflux disease) Hearing impaired HTN (hypertension) 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 Activities of Daily Living and IADL's Pt's assisted with LB dressing needs due to his pain . Social History Household Members spouse Living Arrangements House Number of Floors (Floors) One Floor Number of Stairs To Enter/Railing? 2 platform steps Home Environment Standard Height Toilet,Tub/ Shower Home Equipment Front Wheel Walker,Four Wheel Walker,Straight Cane,Nursing Home Manager, Sock Aid,Grab Bars In Shower Additional Social History Comment Pt has a suction cup grab bar. M2 PT-IP Current Condition Start: 04/23/23 09:20 Freq: NEEDED Status: Active Protocol: Document 04/23/23 12:40 [facility] (Rec: 04/23/23 13:23 [facility] [id number]) Physical Therapy Current Condition Current Condition Evaluation Date 04/23/23 Treatment Diagnosis Lumbar TLIF Onset Date 04/24/23 M3 PT-IP Subjective Start: 04/23/23 09:20 Freq: NEEDED Status: Active Protocol: Document 04/23/23 12:40 [facility] (Rec: 04/23/23 13:23 [facility] [id number]) Subjective Physical Therapy Visit Type Type Initial Evaluation Visit Start Time 12:40 Visit Stop Time 13:00 Total Visit Minutes 20 Number of POSTULANT Visits 2 Physical Therapy Visit Comments Patient Comments Pt states that his pain is still bad. Therapy Pain Assessment Pain When Pain Assessed At Rest Pain Present Pain Present Pain Reported Location low back and right side Intensity 5 Scale Used CowanPhilVides (Faces) Description Acute Pain Behaviors Facial Grimacing,Guarding Pain Management Techniques Modification of Treatment,Re- positioning,Timing of Activity with Medications M4 PT-IP Mobility and Gait Start: 04/23/23 09:20 Freq: NEEDED Status: Active Protocol: Document 04/23/23 12:40 [facility] (Rec: 04/23/23 13:23 [facility] [id number]) PT-Bed Mobility Assessment Rolling Type of Rolling Roll to Right,Roll to Left Level of Assist Maximal Assistance,1 Person Assistance Supine to Sit Supine to Sit Maximum Assistance,1 Person Assistance,Bedrails Sit to Supine Sit to Supine Maximum Assistance,1 Person Assistance,Bedrails Scooting Scooting Up and Down in Bed Minimal Assistance PT-Transfer Assessment Sit to and From Stand Sit to and from Stand Minimal Assistance,1 Person Assistance,Use of Upper Extremities Equipment Transfer Assistive Device Gait Belt,Front Wheeled Walker Orthotic/Prosthetic Devices or Brace: No Comments Mobility Comments Pt has some increased spasming back pain with rolling and STS. Cues for log roll technique and back precautions . Gait Assessment Gait Gait Assistance Required: Contact Guard Assist,1 Person Assist Distance (Feet) 75 Able to Maintain Weight Bearing Status Yes During Gait Assistive Devices Assistive Device Gait Belt,Front Wheeled Walker Orthotic/Prosthetic Devices or Brace: No Gait Deviations General Gait Pattern Antalgic Factors Limiting Gait Function Factors Limiting Gait Function Pain,Poor Balance Comments Gait Comments Pt gait trains very carefully with slow renetta. He states that his back feels better with walking. PT-Balance Assessment Sitting Balance and Reactions Static Sitting Balance Ability Fair Dynamic Sitting Balance Ability Fair Standing Balance and Reactions Static Standing Balance Ability Fair Dynamic Standing Balance Ability Fair Device Used RW M5 PT-IP Objective Assessments Start: 04/23/23 09:20 Freq: NEEDED Status: Active Protocol: Document 04/23/23 12:40 [facility] (Rec: 04/23/23 13:23 [facility] [id number]) Orientation Orientation/Cognition Level of Alertness Alert Orientation Name,Age,Birthday,Month,Date, Year,Day of Week,Place, Situation Language Function Ability No Deficits Noted Safety Awareness Decreased Safety Awareness Memory Description No Deficits Noted Gross Range of Motion Upper Extremity ROM Impairments Defer to OT Lower Extremity ROM Assessment Bilaterally Impaired Impairments Pt does not tolerate formalized ROM testing today d /t back pain Strength Lower Extremity Strength Assessment Bilaterally Impaired Comments Strength Comments Pt cannot tolerate MMT today d /t back pain, he does have functional weakness in proximal joints of both legs Coordination Assessment Assessment Coordination Comments Pt does not tolerate LE coordination testing today Sensation Assessment Sensation Gross Sensation WNL M6 PT-IP Treatment Start: 04/23/23 09:20 Freq: NEEDED Status: Active Protocol: Document 04/23/23 12:40 [facility] (Rec: 04/23/23 13:23 [id number]) Physical Therapy Treatment Education Education Provided Precautions,Post-Op Packet, Safety M7 PT-IP Assessment and Plan Start: 04/23/23 09:20 Freq: NEEDED Status: Active Protocol: Document 04/23/23 12:40 [facility] (Rec: 04/23/23 13:23 [id number]) PT Summary Assessment and Plan Potential Rehabilitation Potential Good Status of Condition at Evaluation Evolving Summary Impairments Pain,ROM,Strength,Balance,Bed Mobility,Transfers,Gait, Activity Tolerance Progress Towards Goals Slow Progress due to Pain Assessment Summary Pt is a 73 y/o male presenting with high pain s/p TLIF last date. He requires cues for back precautions and log rolling. He currently requires max A for bed mobility and less assistance with cues for transfers and gait. He will benefit from PT to improve bed mobility, transfers, gait and to try steps. Goals Bed Mobility Goal Independent Transfer Goal Independent,Front Wheeled Walker Gait Goal Independent,Front Wheel Walker Gait Distance 100 Other Goals Pt will ascend and descend 2 steps with LRAD to allow safe home entrance. Pt will recall 3/3 back precautions. Pt may progress to mobility with LRAD as appropriate. Days to Meet Goals 2 Frequency of Treatment Frequency Of Treatment Twice a Day Treatment Plan Physical Therapy Treatment Plan Bed Mobility Training,Transfer Training,Gait Training, Therapeutic Exercise,Balance Retraining,Post Op Education, Discharge Planning, Neuromuscular Re-ed Precautions Lumbar Precautions Log Roll,No Twisting,Limit Bending,Lifting Restriction of 10 lbs,Gait Belt above Incisional Area Weight Bearing Status Weight Bearing Status Weight Bear as Tolerated Recommendations To Nursing Amount of Assist Needed 1 Person Assist Discharge Recommendations PT Discharge Recommendations Home with Assistance, Outpatient PT Transportation Needs at Discharge Private Vehicle
--- NOTE | 2023-04-23 14:34 | CM.DANOTE ---
Initial DCP Assessment Note Pt is a 73 yo female, resident of [place], now POD#1 from TLIF surgery by Dr Farr PCP: Lorna Terry Payer: [facility]/ CPM [employer] [facility] Reviewed chart, met w/patient to introduce self and role. Patient lives w/sp, had been mod indp w/ADLs until recently when his back pain became debilitating. Patient eager to return home w/assist from his (of 45+years) and has been cleared by PT for this plan. No barriers identified at this time to patient's safe discharge home w/family to assist; close outpatient f/u recommended. CM team will plan to follow closely in case any DC needs or concerns arise. NIC Solorio Discharge Planning/Care Management CM Discharge Assessment Start: 04/23/23 14:29 Freq: Status: Active Protocol: Document 04/23/23 14:29 [facility] (Rec: 04/23/23 14:34 [facility] [id number]) Discharge Planning Assessment Assigned Nuclear Supervising Operator NIC Lopez DPOA/Assigned Designee Name Shawn Parr, spouse Contact Information [phone] Advance Directives? Yes Advance Directives on File No History Provided By Patient,Medical Record Prior Living Arrangements House Household Members spouse Type of transporation used prior to Relies on Others admit Independent with ADL's Yes: Poor activity tolerance r /t severe back pain Is patient alert and oriented? Yes Needs Assistance With Bathing,Grooming,Meal Prep, Toileting,Managing Medications ,Home Chores / Shopping Comment has a 4ww. used a single point cane sometimes when he went outside. Patient/Family Preference OP PT Therapy Barriers to Discharge No Comment Patient has planned to return home and has been cleared by PT for this plan Discharge Plan Home Transportation Arrangement Family Referrals Initiated None needed
[2023-04-23] MEDS: CYCLOBENZAPRINE 10 MG TABLET PO ×2 (15:12→20:29)
--- NOTE | 2023-04-23 15:35 | PT.IPTN ---
Current Diagnoses Other pulmonary embolism without acute cor pulmonale (04/22/23) Spinal stenosis, lumbar region with neurogenic claudication (04/22/23) Other intervertebral disc displacement, lumbar region (04/22/23) Arthrodesis status (04/22/23) Surgery Performed Operation Date: 04/22/23 14:15 Actual Procedures p L4-5 TLIF - Damari Farr MD Physical Therapy Treatment Note M2 PT-IP Current Condition Start: 04/23/23 09:20 Freq: NEEDED Status: Active Protocol: Document 04/23/23 12:40 MB (Rec: 04/23/23 13:23 MB [id number]) Physical Therapy Current Condition Current Condition Evaluation Date 04/23/23 Treatment Diagnosis Lumbar TLIF Onset Date 04/24/23 M3 PT-IP Subjective Start: 04/23/23 09:20 Freq: NEEDED Status: Active Protocol: Document 04/23/23 16:03 TS (Rec: 04/23/23 16:18 TS [id number]) Subjective Physical Therapy Visit Type Type Treatment Note Visit Start Time 15:35 Visit Stop Time 16:00 Total Visit Minutes 25 Notes Spouse present Number of ROUTE CONTRACTOR Visits 3 Physical Therapy Visit Comments Patient Comments Pt found resting in bed, reports he is feeling better but has a lot of pain when moving in bed. Is agreeable to PT. Therapy Pain Assessment Pain When Pain Assessed During Mobility Pain Present Pain Present Pain Reported M4 PT-IP Mobility and Gait Start: 04/23/23 09:20 Freq: NEEDED Status: Active Protocol: Document 04/23/23 16:03 TS (Rec: 04/23/23 16:18 TS [id number]) PT-Bed Mobility Assessment Rolling Type of Rolling Roll to Left Level of Assist Minimal Assistance,1 Person Assistance Supine to Sit Supine to Sit Moderate Assistance,1 Person Assistance,Bedrails Sit to Supine Sit to Supine Minimal Assistance,1 Person Assistance,Bedrails Scooting Scooting to Edge of Bed Standby Assistance Scooting Up and Down in Bed Standby Assistance PT-Transfer Assessment Sit to and From Stand Sit to and from Stand Contact Guard Assistance,1 Person Assistance,Use of Upper Extremities Equipment Transfer Assistive Device Gait Belt,Front Wheeled Walker Orthotic/Prosthetic Devices or Brace: No Comments Mobility Comments Pt recalled 0/3 spinal precautions, spouse recalled 3 /3. He performed logroll to L side Gregorio with cues for handrail assist, demonstrated some carryover. Supine to sit ModA for uprighting trunk. Spouse performed donning of gait belt. Sit to stand with FWW CGA, pt has good standing balance. He ambulated to toilet ~15'SBA/CGA from spouse . Pt ambulated out into hallway ~100'SBA with FWW and slow step to gait with heavy UE support. Pt ambulated back to room, performed stairs x3 on platform step CGA from spouse, required cues for sequencing. Back in room nursing changed dressing on surgical site. Sit to supine into bed Gregorio from spouse for LEs, pt demonstrated good recall of sequencing. Pt was left in bed, all needs met. Gait Assessment Gait Gait Assistance Required: Standby Assistance,Contact Guard Assist,1 Person Assist Distance (Feet) 115 Able to Maintain Weight Bearing Status Yes During Gait Assistive Devices Assistive Device Gait Belt,Front Wheeled Walker Orthotic/Prosthetic Devices or Brace: No Gait Deviations General Gait Pattern Antalgic,Decreased Stride Length,Decreased Feet Clearance,Step-to Gait Factors Limiting Gait Function Factors Limiting Gait Function Decreased Activity Tolerance, Decreased Strength,Pain,Poor Balance Comments Gait Comments See mobility comments Stair Climbing Assessment Evaluation Level of Assist On Stairs Contact Guard Assistance,1 Person Assistance Devices Stair Climbing Assistive Devices Front Wheel Walker Technique/Endurance Stair Climbing Direction Ascend and Descend Stair Climbing Technique Step to Step Number of Steps Climbed 3 Comments Stair Climbing Comments x3 platform steps with FWW, spouse assist CGA. PT-Balance Assessment Sitting Balance and Reactions Static Sitting Balance Ability Good Dynamic Sitting Balance Ability Fair Standing Balance and Reactions Static Standing Balance Ability Good Dynamic Standing Balance Ability Fair Device Used RW M5 PT-IP Objective Assessments Start: 04/23/23 09:20 Freq: NEEDED Status: Active Protocol: Document 04/23/23 12:40 MB (Rec: 04/23/23 13:23 MB [id number]) Orientation Orientation/Cognition Level of Alertness Alert Orientation Name,Age,Birthday,Month,Date, Year,Day of Week,Place, Situation Language Function Ability No Deficits Noted Safety Awareness Decreased Safety Awareness Memory Description No Deficits Noted Gross Range of Motion Upper Extremity ROM Impairments Defer to OT Lower Extremity ROM Assessment Bilaterally Impaired Impairments Pt does not tolerate formalized ROM testing today d /t back pain Strength Lower Extremity Strength Assessment Bilaterally Impaired Comments Strength Comments Pt cannot tolerate MMT today d /t back pain, he does have functional weakness in proximal joints of both legs Coordination Assessment Assessment Coordination Comments Pt does not tolerate LE coordination testing today Sensation Assessment Sensation Gross Sensation WNL M6 PT-IP Treatment Start: 04/23/23 09:20 Freq: NEEDED Status: Active Protocol: Document 04/23/23 16:03 TS (Rec: 04/23/23 16:18 TS [id number]) Physical Therapy Treatment Education Education Provided Precautions,Post-Op Packet, Safety M7 PT-IP Assessment and Plan Start: 04/23/23 09:20 Freq: NEEDED Status: Active Protocol: Document 04/23/23 16:03 TS (Rec: 04/23/23 16:18 TS [id number]) PT Summary Assessment and Plan Potential Rehabilitation Potential Good Summary Impairments Pain,ROM,Strength,Balance,Bed Mobility,Transfers,Gait, Activity Tolerance Progress Towards Goals Progressing Toward Goals Assessment Summary Aung is making good progress with his mobility. He performed logroll with spouse Gregorio with some cueing for sequencing. He required most assist for supine sit to upright trunk ModA. He progressed his gait to ~115' SBA/CGA with slow renetta and use of FWW. He progressed to stairs x3 with platform step and FWW CGA from spouse. Pt has some difficulty recalling spinal precautions, he recalled 0/3, spouse recalled 3/3. Spouse did well with pt and assisted with donning of gait belt, sit to stand, gait and stairs. PT is recommending home with assist. Goals Bed Mobility Goal Independent Transfer Goal Independent,Front Wheeled Walker Gait Goal Independent,Front Wheel Walker Gait Distance 100 Other Goals Pt will ascend and descend 2 steps with LRAD to allow safe home entrance. Pt will recall 3/3 back precautions. Pt may progress to mobility with LRAD as appropriate. Days to Meet Goals 2 Frequency of Treatment Frequency Of Treatment Twice a Day Treatment Plan Physical Therapy Treatment Plan Bed Mobility Training,Transfer Training,Gait Training, Therapeutic Exercise,Balance Retraining,Post Op Education, Discharge Planning, Neuromuscular Re-ed Other Recommendations and Next Treatment Continue to progress gait, Focus stairs, assess carryover of spinal precautions. Precautions Lumbar Precautions Log Roll,No Twisting,Limit Bending,Lifting Restriction of 10 lbs,Gait Belt above Incisional Area Weight Bearing Status Weight Bearing Status Weight Bear as Tolerated Recommendations To Nursing Amount of Assist Needed 1 Person Assist Discharge Recommendations PT Discharge Recommendations Home with Assistance, Outpatient PT Transportation Needs at Discharge Private Vehicle
[2023-04-23 16:56] LABS: Hematocrit 34.9 % (41-53); Hemoglobin 12.2 g/dL (13.5-17.5); Mean Corpuscular HGB Conc 34.9 % (30-36); Mean Corpuscular Hemoglobin 33.1 PG (26-34); Mean Corpuscular Volume 94.7 fL (80-100); Platelet Count 211 X10^3/uL (150-400); Red Blood Cell Count 3.69 X10^6/uL (4.5-5.9); Red Cell Distribution Width 14.8 % (11.6-14.8)
[2023-04-23 17:03] LABS: INR 1.3 (0.9-1.3); Prothrombin Time 14.4 SECONDS (9.4-12.5)
[2023-04-23] MEDS: WARFARIN 5 MG TABLET PO (17:49)
[2023-04-23 20:11] VITALS: BP 126/69; PULSE 70; RESP 18; TEMP 37.7; O2SAT 95
[2023-04-23] MEDS: ATORVASTATIN 20 MG TABLET 40 MG PO (20:28)
[2023-04-23] MEDS: MIRTAZAPINE 15 MG TABLET PO (20:29)
[2023-04-23] MEDS: SENNOSIDES 8.6 MG TABLET 17.2 MG PO (20:29)
[2023-04-23] MEDS: PANTOPRAZOLE DR 20 MG TABLET PO (21:23)
[2023-04-23 22:13] VITALS: TEMP 38.3
[2023-04-23 23:15] VITALS: TEMP 38
[2023-04-24 00:10] VITALS: TEMP 38
[2023-04-24] MEDS: OXYCODONE IR 10 MG TABLET PO ×3 (03:24→09:59)
[2023-04-24] MEDS: ACETAMINOPHEN 325 MG TABLET 650 MG PO (03:50)
[2023-04-24 04:34] VITALS: TEMP 36.8
--- NOTE | 2023-04-24 07:22 | PM.DS.1 ---
History of Present Illness History of Present Illness Date Patient Seen: 04/24/23 Time Patient Seen: 07:23 Chief complaint: Lumbar TLIF Narrative: Operative Date/Time/Diagnoses Date of procedure: 04/22/23 Time of procedure: 13:45 Pre-op diagnosis: 1. L4-5 lateral recess stenosis with radiculopathy 2. L4-5 disc herniation Post-op diagnosis: same Procedure & Clinicians Procedure: 1. L4-5 Postero-lateral and posterior interbody fusion 2. L4-5 interbody cage placement. 3. L4-5 decompressive laminectomy with bilateral facetecomies 4. L4-5 Posterior non-segmental instrumentation 5. [place] of bone marrow from iliac crest 6. Utilization of microsurgical technique and operating microscope Same procedure as scheduled: Yes Indications: Patient has been having acute onset severe back pain and worsening lumbar radiculopathy. He is unable to sit, walk, sleep or stand without being in severe pain. His pain radiates down his right leg with pain, numbness and weakness in his right leg that is worsening over time. Patient failed multiple conservative management with worsening pain weakness and numbness in his lower extremity. Patient has been having difficulty performing activity of daily living. After discussing risks benefits of treatment options, patient elected proceed with surgery. Surgeon: Damari aFrr Operations Manager Station: Stephanie Luo Click Yes if Unassisted: No Anesthesia Type: General Discharge Providers Provider Date of admission: 04/22/23 12:14 Discharge Date: 04/24/23 Primary care physician: Lorna Terry MD Consults: 04/22/23 17:55 Consult to Occupational Therapy Evaluate & Treat Comment: Physician Instructions: Evaluate and treat Consult to Physical Therapy Evaluate & Treat Comment: Physician Instructions: Evaluate and Treat Discharge provider: Ana Paula Littlejohn PA-C Summary Hospital Course Discharge Diagnosis: L4-5 lateral recess stenosis with radiculopathy with L4-5 disc herniation s/p L4-L5 TLIF. Hospital Course: Hospital course complicated by poor pain control on post op day #1. Adjustments were made on the morning of POD #2, APAP and cyclobenzaprine changed to scheduled not PRN medications. He was febrile at 101.8 on POD #1 but at the time of discharge was 98.6. Patient would like to return home today. PT has evaluated patient and feels that discharge is appropriate based on his ability to ambulate and use restroom on his own. Exam Vital Signs (past 8 hours): - 04/24/23 00:10 04/24/23 04:34 Temperature 100.4 F H 98.3 F Oxygen Delivery Method Room Air Oxygen Flow Rate 0 Narrative Exam Narrative: Alert and oriented. 5/5 strength with plantar flexion, dorsi flexion, knee flexion and knee extension. Sensation intact to bilateral lower extremities. Calf soft and non-tender bilaterally. Able to roll onto left side. Incision site covered with clean and dry dressing. Objective Labs 04/23/23 16:48 Labs: Laboratory Results - last 24 hr 04/23/23 16:48 WBC 12.0 H RBC 3.69 L Hgb 12.2 L Hct 34.9 L MCV 94.7 MCH 33.1 MCHC 34.9 RDW 14.8 Plt Count 211 PT 14.4 H INR 1.3 PFSH Medical History (Updated 04/23/23 @ 07:39 by Stephanie Luo PA-C) 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) Anxiety Eczema Diverticulitis GERD (gastroesophageal reflux disease) Hearing impaired Spinal stenosis HTN (hypertension) Depression DJD (degenerative joint disease) Arthritis Pulmonary embolism Surgical History (Updated 04/23/23 @ 07:37 by Stephanie Luo PA-C) Hx of colonoscopy (08/14/21) History of esophagogastroduodenoscopy (EGD) (08/14/21) 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) S/P epidural steroid injection History of vasectomy Hx of hernia repair Hx of tonsillectomy Hx of fusion of cervical spine (~2013) Social History household members: spouse Smoking Status: Former smoker alcohol intake: never Discharge Plan Discharge Plan Patient Disposition: Home Discharge orders & Medications Prescriptions: New acetaminophen 325 mg Tablet 650 mg PO Q6H Qty: 240 0RF cyclobenzaprine 10 mg Tablet 10 mg PO TID Qty: 60 0RF oxycodone 5 mg tablet 5 mg PO Q3H PRN (Reason: pain (scale score 7-10)) Qty: 60 0RF Continued omeprazole 20 MG tablet,delayed release (DR/EC) 20 mg PO QPM Qty: 0 Patient Comments: Takes around 1530 cyclobenzaprine 10 MG tablet 10 mg PO TID PRN (Reason: Muscle Spasm) Qty: 0 aspirin [Yuan Low Dose Aspirin] 81 mg Tablet,Delayed Release (Dr/Ec) 81 mg PO DAILY cholecalciferol (vitamin D3) [Vitamin D3] 1,000 unit Capsule 1,000 unit PO DAILY hydrochlorothiazide 12.5 mg Capsule 12.5 mg PO DAILY methotrexate sodium 2.5 mg Tablet 20 mg PO QWEEK Patient Comments: 10mg BID on Tuesdays only gabapentin 300 mg Capsule 300 mg PO BID folic acid 1 mg Tablet 1 mg PO DAILY mirtazapine 15 mg Tablet 15 mg PO BEDTIME oxycodone 5 mg Tablet 5 mg PO BID PRN (Reason: Pain) latanoprost 0.005 % drops 1 drp EYE-BOTH ONCE PM enoxaparin 100 mg/mL syringe 70 mg SUBCUT BID Patient Comments: [NO ORIGINAL SIG] atorvastatin 40 mg Tablet 40 mg PO BEDTIME warfarin 5 mg Tablet 5 mg PO SEEINSTR Patient Comments: Currently on 8mg daily Rx Instructions: 5mg alt w/7.5mg daily Discontinued acetaminophen 325 mg tablet 650 mg PO TID PRN (Reason: Pain) Follow up/Referrals: Lorna Terry MD [Primary Care Provider] - Damari Farr MD [Physician] - As previously scheduled (Follow up with Gilbert Sharma PA-C, on 05/06/2023 @ 1:30 pm at [facility] in [place].) Diet/Activity/Treatments Diet: Diet as Tolerated Activity: No deep bending or twisting at the waist. No lifting more than 10 pounds. Cold/Heat Therapy: Heating pad to low back as needed for pain. Skin/Wound/Dressing Care Report to your healthcare provider any signs of infection, such as:: chills, fever, night sweats, unusual drainage and unusual redness Dressing: May shower. Keep dressing as dry as possible. If dressing becomes wet or dirty, remove and replace with clean, dry gauze. No bathing or otherwise soaking incisions. Do not apply any creams, lotions, or ointments to incisions. Visit Report/Discharge Packet Instructions: DI for Prescription Opioid Use, Oxycodone, DI for Transforaminal Lumbar Interbody Fusion Stand Alone Forms: Patient Portal/API, Stroke Signs & Symptoms, Surgery Discharge Discharge Data Primary Care Provider: Terry,Lorna E Quality VTE Deep Vein Thrombosis/Pulmonary Embolism Present on Admission: No
[2023-04-24 08:18] VITALS: BP 123/62; PULSE 69; RESP 20; TEMP 37; O2SAT 98
--- NOTE | 2023-04-24 09:04 | PT.IPTN ---
Current Diagnoses Other pulmonary embolism without acute cor pulmonale (04/22/23) Spinal stenosis, lumbar region with neurogenic claudication (04/22/23) Other intervertebral disc displacement, lumbar region (04/22/23) Arthrodesis status (04/22/23) Surgery Performed Operation Date: 04/22/23 14:15 Actual Procedures p L4-5 TLIF - Damari Farr MD Physical Therapy Treatment Note M2 PT-IP Current Condition Start: 04/23/23 09:20 Freq: NEEDED Status: Active Protocol: Document 04/23/23 12:40 MB (Rec: 04/23/23 13:23 MB [id number]) Physical Therapy Current Condition Current Condition Evaluation Date 04/23/23 Treatment Diagnosis Lumbar TLIF Onset Date 04/24/23 M3 PT-IP Subjective Start: 04/23/23 09:20 Freq: NEEDED Status: Active Protocol: Document 04/24/23 10:28 TS (Rec: 04/24/23 10:43 TS [id number]) Subjective Physical Therapy Visit Type Type Treatment Note Visit Start Time 09:04 Visit Stop Time 09:27 Total Visit Minutes 23 Notes spouse present Number of DIRECTOR EPIDEMIOLOGY Visits 4 Physical Therapy Visit Comments Patient Comments Pt found resting in bed, reports being up and moving yesterday evening with spouse in halls, is agreeable to PT. Therapy Pain Assessment Pain When Pain Assessed During Mobility Pain Present Pain Present Pain Reported M4 PT-IP Mobility and Gait Start: 04/23/23 09:20 Freq: NEEDED Status: Active Protocol: Document 04/24/23 10:28 TS (Rec: 04/24/23 10:43 TS [id number]) PT-Bed Mobility Assessment Rolling Type of Rolling Roll to Left Level of Assist Minimal Assistance,1 Person Assistance Supine to Sit Supine to Sit Minimal Assistance,1 Person Assistance,Bedrails Scooting Scooting to Edge of Bed Standby Assistance PT-Transfer Assessment Sit to and From Stand Sit to and from Stand Contact Guard Assistance,1 Person Assistance,Use of Upper Extremities Equipment Transfer Assistive Device Gait Belt,Front Wheeled Walker Orthotic/Prosthetic Devices or Brace: No Comments Mobility Comments Logroll to L side Gregorio for hips, pt required extra time to roll onto side, cues for use of handrail. Supine to sit Gregorio to upright trunk, pt demonstrated good carryover of technique. He performed sit to stand CGA with FWW, required cues for upright posture. He ambulated ~150'SBA with FWW, had no buckling or LOB. He performed stairs x3 with FWW on platform step CGA from spouse. Pt ambulated back to room, left sitting EOB, spouse assisting with dressing . Gait Assessment Gait Gait Assistance Required: Standby Assistance Distance (Feet) 150 Able to Maintain Weight Bearing Status Yes During Gait Assistive Devices Assistive Device Gait Belt,Front Wheeled Walker Orthotic/Prosthetic Devices or Brace: No Gait Deviations General Gait Pattern Antalgic,Decreased Stride Length,Decreased Feet Clearance,Step-to Gait Factors Limiting Gait Function Factors Limiting Gait Function Decreased Activity Tolerance, Decreased Strength,Pain,Poor Balance Stair Climbing Assessment Evaluation Level of Assist On Stairs Contact Guard Assistance,1 Person Assistance Devices Stair Climbing Assistive Devices Front Wheel Walker Technique/Endurance Stair Climbing Direction Ascend and Descend Stair Climbing Technique Step to Step Number of Steps Climbed 3 Comments Stair Climbing Comments x3 platform steps with FWW, spouse assist CGA. PT-Balance Assessment Sitting Balance and Reactions Static Sitting Balance Ability Good Dynamic Sitting Balance Ability Fair Standing Balance and Reactions Static Standing Balance Ability Good Dynamic Standing Balance Ability Fair Device Used RW M5 PT-IP Objective Assessments Start: 04/23/23 09:20 Freq: NEEDED Status: Active Protocol: Document 04/23/23 12:40 MB (Rec: 04/23/23 13:23 MB [id number]) Orientation Orientation/Cognition Level of Alertness Alert Orientation Name,Age,Birthday,Month,Date, Year,Day of Week,Place, Situation Language Function Ability No Deficits Noted Safety Awareness Decreased Safety Awareness Memory Description No Deficits Noted Gross Range of Motion Upper Extremity ROM Impairments Defer to OT Lower Extremity ROM Assessment Bilaterally Impaired Impairments Pt does not tolerate formalized ROM testing today d /t back pain Strength Lower Extremity Strength Assessment Bilaterally Impaired Comments Strength Comments Pt cannot tolerate MMT today d /t back pain, he does have functional weakness in proximal joints of both legs Coordination Assessment Assessment Coordination Comments Pt does not tolerate LE coordination testing today Sensation Assessment Sensation Gross Sensation WNL M6 PT-IP Treatment Start: 04/23/23 09:20 Freq: NEEDED Status: Active Protocol: Document 04/24/23 10:28 TS (Rec: 04/24/23 10:43 TS [id number]) Physical Therapy Treatment Education Education Provided Precautions,Post-Op Packet, Safety M7 PT-IP Assessment and Plan Start: 04/23/23 09:20 Freq: NEEDED Status: Active Protocol: Document 04/24/23 10:28 TS (Rec: 04/24/23 10:43 TS [id number]) PT Summary Assessment and Plan Potential Rehabilitation Potential Good Summary Impairments Pain,ROM,Strength,Balance,Bed Mobility,Transfers,Gait, Activity Tolerance Progress Towards Goals Progressing Toward Goals Assessment Summary Aung continues to do well with his mobility. He required decreased assist for bed mobility and demonstrates some carryover of logroll/supine technique. He progressed his gait to ~150' SBA with FWW, had no buckling or LOB. He performed stairs CGA from spouse x3 with FWW. PT is recommending home with assist from spouse. Goals Bed Mobility Goal Independent Transfer Goal Independent,Front Wheeled Walker Gait Goal Independent,Front Wheel Walker Gait Distance 100 Other Goals Pt will ascend and descend 2 steps with LRAD to allow safe home entrance. Pt will recall 3/3 back precautions. Pt may progress to mobility with LRAD as appropriate. Days to Meet Goals 2 Frequency of Treatment Frequency Of Treatment Twice a Day Treatment Plan Physical Therapy Treatment Plan Bed Mobility Training,Transfer Training,Gait Training, Therapeutic Exercise,Balance Retraining,Post Op Education, Discharge Planning, Neuromuscular Re-ed Other Recommendations and Next Treatment Continue to progress gait, Focus stairs, assess carryover of spinal precautions. Precautions Lumbar Precautions Log Roll,No Twisting,Limit Bending,Lifting Restriction of 10 lbs,Gait Belt above Incisional Area Weight Bearing Status Weight Bearing Status Weight Bear as Tolerated Recommendations To Nursing Amount of Assist Needed Standby Assistance Discharge Recommendations PT Discharge Recommendations Home with Assistance, Outpatient PT Transportation Needs at Discharge Private Vehicle
[2023-04-24] MEDS: ENOXAPARIN 100 MG/ML SYRINGE 70 MG SUBCUT (09:58)
[2023-04-24] MEDS: GABAPENTIN 300 MG CAPSULE PO (09:59)
[2023-04-24] MEDS: CYCLOBENZAPRINE 10 MG TABLET PO (09:59)
[2023-04-24] MEDS: FOLIC ACID 1 MG TABLET PO (09:59)
[2023-04-24] MEDS: DOCUSATE 100 MG CAPSULE PO (09:59)
[2023-04-24] MEDS: CHOLECALCIFEROL (VITAMIN D3) 1,000 UNIT TABLET 1000 UNIT PO (09:59)
--- NOTE | 2023-04-24 15:48 | CM.DPC ---
DCP Continued ENVIRONMENTAL COMMUNICATIONS SPECIALIST reviewed chart. dc order in, no needs from CM team. Plan: home with spouse today, no needs. CM team will follow as needed. NIC Singh
== END 2023-04-24 11:04 | disposition home or self-care (01) | DRG 453 ==
PROVIDERS: Admitting Provider Orthopaedic Surgery Orthopaedic Surgery of the Spine; Family Provider Internal Medicine; PCP Student in an Organized Health Care Education/Training Program; Referring Provider Orthopaedic Surgery Orthopaedic Surgery of the Spine; Visit Provider Orthopaedic Surgery Orthopaedic Surgery of the Spine
PROC: 0SG00AJ Fusion of Lumbar Vertebral Joint with Interbody Fusion Device, Posterior Approach, Anterior Column, Open Approach (ICD-10-PCS; principal; 2023-04-22 14:15)
DX: M48.062 Spinal stenosis, lumbar region with neurogenic claudication (principal); I26.99 Other pulmonary embolism without acute cor pulmonale; M51.16 Intervertebral disc disorders with radiculopathy, lumbar region; M51.26 Other intervertebral disc displacement, lumbar region; G89.18 Other acute postprocedural pain; K21.9 Gastro-esophageal reflux disease without esophagitis; I10 Essential (primary) hypertension; F32.A Depression, unspecified; Z79.01 Long term (current) use of anticoagulants; Z87.891 Personal history of nicotine dependence
CPT/HCPCS: 72100; 76000; 85027; 85610; 97116; 97161; 97165; 97530; 97535; C1713; C1831; C9290; J0171; J0330; J0690; J1170; J1650; J2175; J2250; J2405; J2704; J3010; J3410

== ENCOUNTER → 2023-09-28 11:02 | Outpatient (CLI) | payer MEDICARE, OTHER, SELFPAY ==
[2023-04-22 17:56] VITALS: BMI 25.1
--- NOTE | 2023-09-28 11:06 | DI.RAD.S_ITS ---
PROCEDURE: XR SHOULDER LT MIN 2V INDICATIONS: PAIN IN BOTH SHOULDERS TECHNIQUE: 3 views of the shoulder were acquired. COMPARISON: None. FINDINGS: Bones: No fractures or dislocations. No suspicious bony lesions. Visualized ribs appear intact. Mild degenerative changes noted in the AC joint Soft tissues: No suspicious soft tissue calcifications. IMPRESSION: Mild AC joint arthritic changes Approved by: Amadou Wright M.D. on 09/28/2023 at 19:06
--- NOTE | 2023-09-28 11:06 | DI.RAD.S_ITS ---
PROCEDURE: XR SHOULDER RT MIN 2V INDICATIONS: PAIN IN SHOULDERS TECHNIQUE: 3 views of the shoulder were acquired. COMPARISON: None. FINDINGS: Bones: No fractures or dislocations. No suspicious bony lesions. Visualized ribs appear intact. Mild AC degenerative changes Soft tissues: No suspicious soft tissue calcifications. IMPRESSION: Mild degenerative AC arthritic changes Approved by: Amadou Wright M.D. on 09/28/2023 at 19:11
== END ==
PROVIDERS: Family Provider Internal Medicine; PCP Student in an Organized Health Care Education/Training Program; Referring Provider Internal Medicine Rheumatology; Visit Provider Internal Medicine Rheumatology
DX: M25.511 Pain in right shoulder (principal); M25.512 Pain in left shoulder; G89.29 Other chronic pain
CPT/HCPCS: 73030

== ENCOUNTER 2023-12-02 09:08 | Emergency (ER) | payer MEDICARE, OTHER, SELFPAY ==
[2023-04-22 17:56] VITALS: BMI 25.1
[2023-12-02 09:15] VITALS: BP 195/95
[2023-12-02 09:18] VITALS: PULSE 78; O2SAT 100
[2023-12-02 09:19] VITALS: BP 195/95; PULSE 79; RESP 18; TEMP 37.3; O2SAT 99; BMI 24.6
[2023-12-02 09:34] VITALS: PULSE 77; O2SAT 97
[2023-12-02 09:38] LABS: Add Manual Diff / Slide Review NO; Basophils Absolute Auto 100 /uL (0-100); Basophils Percent Auto 1.4 % (0-2); Eosinophils Absolute Auto 100 /uL (0-450); Eosinophils Percent Auto 1.2 % (2-4); Hemoglobin 14.9 g/dL (13.5-17.5); Lymphocytes Absolute Auto 1000 /uL (1100-4500); Lymphocytes Percent Auto 12.5 % (25-40); Mean Corpuscular HGB Conc 34.8 % (30-36); Mean Corpuscular Hemoglobin 33.4 PG (26-34); Monocytes Absolute Auto 800 /uL (0-900); Monocytes Percent Auto 10.3 % (3-14); Neutrophils Absolute Auto 5800 /uL (1500-7000); Neutrophils Percent Auto 74.6 % (50-75); Platelet Count 350 X10^3/uL (150-400); Red Blood Cell Count 4.47 X10^6/uL (4.5-5.9); Red Cell Distribution Width 14.9 % (11.6-14.8); White Blood Cell Count 7.8 X10^3/uL (4.5-11.0)
[2023-12-02 09:47] LABS: INR 2.3 (0.9-1.3); Prothrombin Time 26.4 SECONDS (9.4-12.5)
[2023-12-02 09:49] LABS: PTT Partial Thromboplastin Tim 40 SECONDS (25.1-36.5)
--- NOTE | 2023-12-02 09:51 | EKG_ITS ---
[place] [id number] [address] [place] [id number] Test Date: 2023-12-02 Pat Name: Aj Parr Jr Department: [facility] Room: Gender: Male Key Account Coordinator: EMILIE : 1950 Requested By: Order Number: [id number] Reading MD: Devan Roa MD Measurements Intervals [place] Rate: 69 P: 48 IA: 168 QRS: -57 QRSD: 86 T: 2 QT: 392 QTc: 420 Interpretive Statements Sinus rhythm with premature atrial complexes Left axis deviation Electronically Signed On 12-03-2023 7:54:30 PDT by Devan Roa MD
[2023-12-02 09:53] LABS: Alanine Aminotransferase 23 IU/L (<50); Albumin Globulin Ratio 1.4 (1.0-2.8); Alkaline Phosphatase 112 U/L (38-126); Aspartate Aminotransferase 34 IU/L (17-59); BUN Creatinine Ratio 17.9 (6-22); Blood Urea Nitrogen 15 mg/dL (9-20); Calcium 9.7 mg/dL (8.4-10.2); Carbon Dioxide 25 mmol/L (22-32); Chloride 104 mmol/L (98-107); Estimated Glomerular Filt Rate > 60 mL/min (>60); Globulin 3.6 g/dL (1.7-4.1); Glucose 115 mg/dL (80-110); HEMOLYSIS < 15 (0-50); Potassium 3.4 mmol/L (3.4-5.1); Sodium 138 mmol/L (137-145); Total Protein 8.6 g/dL (6.3-8.2)
[2023-12-02 10:00] VITALS: BP 160/83; PULSE 65; O2SAT 96
--- NOTE | 2023-12-02 10:09 | PC.NURSE ---
Bright red blood when wiping and on underwear. Hx of gi bleed 20+ years ago prior to dx of chron's. Pt states he is due for a colonoscopy. Pt states he only takes omeprazole to help manage gi symptoms. Pt denies abd pain; no pain when palpating. Pt states he routinely uses the bathroom. Pt states he was dx with hemorrhoids.
--- NOTE | 2023-12-02 10:11 | PC.NURSE ---
Pt also states he has been taking prepration H which has helped soften his stools; pt educated on importance of avoiding constipation/hard stools w/ hx of hemmroids.
--- NOTE | 2023-12-02 10:16 | ED.GIBLEED ---
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 Patient presents with complaint of bleeding from the rectum. Patient states he noticed on bubble appear in the rectal area in the past week. He was constipated started using preparation H has had soft formed bowel movements which has been easily moving through while using preparation H daily for the past week. Patient states this morning he woke up felt flatus and then felt liquid, he checked and had blood soaked through his underwear, did go to the bathroom and had a small bowel movement. He is continued to have some bleeding on and off this morning. Patient states he does have a history of internal bleeding that was GI. He was hospitalized had 2 units had a scope which was negative and no clear source was found at that time. This was several years ago. Patient denies any chest pain or shortness of breath, no abdominal pain, no rectal pain currently but states it was uncomfortable earlier in the week. No urinary symptoms. States no bloody stools prior to today. Patient states only other recent medication changes is fluorouracil cream applied to his forehead for skin cancer by dermatology. Patient's former smoker, occasional alcohol, no recreational drugs. Has had prior colonoscopies but not recently. Related Data Home Medications Medication Instructions Recorded Confirmed cyclobenzaprine 10 mg tablet 10 mg PO TID PRN Muscle Spasm ##0 09/08/11 04/22/23 omeprazole 20 mg tablet,delayed 20 mg PO QPM ##0 09/08/11 04/22/23 release aspirin 81 mg tablet,delayed 81 mg PO DAILY 04/13/19 04/22/23 release (Yuan Low Dose Aspirin) cholecalciferol (vitamin D3) 25 1,000 unit PO DAILY 04/13/19 04/22/23 mcg (1,000 unit) capsule (Vitamin D3) hydrochlorothiazide 12.5 mg capsule 12.5 mg PO DAILY 04/13/19 04/22/23 atorvastatin 40 mg tablet 40 mg PO BEDTIME 12/18/20 04/22/23 warfarin 5 mg tablet 5 mg PO SEEINSTR 12/18/20 04/22/23 folic acid 1 mg tablet 1 mg PO DAILY 04/16/23 04/22/23 gabapentin 300 mg capsule 300 mg PO BID 04/16/23 04/22/23 methotrexate sodium 2.5 mg tablet 20 mg PO QWEEK 04/16/23 04/22/23 mirtazapine 15 mg tablet 15 mg PO BEDTIME 04/16/23 04/22/23 oxycodone 5 mg tablet 5 mg PO BID PRN Pain 04/16/23 04/22/23 enoxaparin 100 mg/mL subcutaneous 70 mg SUBCUT BID 04/22/23 04/22/23 syringe latanoprost 0.005 % eye drops 1 drp EYE-BOTH ONCE PM 04/22/23 04/22/23 Previous Rx's Medication Instructions Recorded acetaminophen 325 mg tablet 650 mg (2 x 325 mg) PO Q6H #240 04/24/23 tabs cyclobenzaprine 10 mg tablet 10 mg PO TID #60 tabs 04/24/23 oxycodone 5 mg tablet 5 mg PO Q3H PRN pain (scale score 04/24/23 7-10) #60 tabs hydrocortisone 1 %-pramoxine 1 % 1 applic ID QID PRN hemorrhoids 12/02/23 rectal foam (Proctofoam HC) #10 grams Allergies Allergy/AdvReac Type Severity Reaction Status Date / Time hydrocodone Allergy Severe Welts, Verified 08/14/21 13:11 sweats, loss of appetite hydroxychloroquine Allergy Severe Rash Verified 04/16/23 09:14 Sulfa (Sulfonamide Allergy Severe Rash Verified 04/16/23 09:14 Antibiotics) adhesive tape Allergy Mild Rash Verified 08/14/21 13:11 sulfamethoxazole Allergy Mild Rash Verified 08/14/21 13:11 [From ] trimethoprim [From ] Allergy Mild Rash Verified 08/14/21 13:11 Review of Systems Review of Systems ROS Unobtainable: All systems reviewed & are unremarkable except as noted in HPI and below Patient History Medical History 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9) Anxiety Eczema Diverticulitis GERD (gastroesophageal reflux disease) Hearing impaired Spinal stenosis HTN (hypertension) Depression DJD (degenerative joint disease) Arthritis Pulmonary embolism Surgical History Hx of colonoscopy (08/14/21) History of esophagogastroduodenoscopy (EGD) (08/14/21) 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 HEENT: Head normocephalic, atraumatic, EOMI, pupils reactive, face symmetric, moist mucous membranes NECK: Supple, full range of motion CARDIOVASCULAR: Regular rate and rhythm without murmurs, rubs or gallops. RESPIRATORY: Breath sounds equal bilaterally, no wheezes rales or rhonchi. ABDOMEN: Soft, nontender. Normoactive bowel sounds all 4 quadrants. No guarding or rebound, rigidity, no mass, rectal exam patient does have an external hemorrhoid that is about the size of a dime. There has a punctate lesion that appears to be his source of bleeding. It has not actively bleeding currently. There is some bright red blood around the rectum. On digital rectal exam patient does have some additional internal hemorrhoids. No active bleeding at this particular moment but does have some bright red blood in his brief. : No CVA tenderness EXTREMITIES: Normal range of motion, no clubbing or edema. Neurovascularly intact NEUROLOGICAL: Cranial nerves II through XII grossly intact. Moving all extremities SKIN: Warm, dry, no petechiae, no rashes or lesions. Initial Vital Signs Initial Vital Signs: Vital Signs Blood Pressure 195/95 H 12/02/23 09:15 Course Orders Ordered: ED Orders 12/02/23 09:23 EKG-12 Lead Stat 12/02/23 09:25 Complete Blood Count AUTO DIFF Stat Comprehensive Metabolic Panel Stat PTT Partial Thromboplastin Malcolm Stat Prothrombin Time INR Stat Type and Screen Stat Discontinued Medications Ondansetron HCl (Ondansetron 4 Mg/2 Ml Inj) 4 mg IV NOW PRN PRN Reason: Nausea And Vomiting Ondansetron HCl (Ondansetron 4 Mg Odt) 4 mg SL NOW PRN PRN Reason: Nausea And Vomiting Pantoprazole Sodium (Pantoprazole 40 Mg Vial) 80 mg IV NOW ONE Stop: 12/02/23 09:24 Last Admin: 12/02/23 11:20 Dose: Not Given Documented By: SUKHWINDER Vital Signs Vital signs: Vital Signs - 8 hr 12/02/23 11:21 Temperature 98.8 F Pulse Rate 64 Respiratory Rate 16 Blood Pressure 157/83 H Pulse Oximetry 96 Oxygen Delivery Method Room Air MDM - GI Bleed Lab Data 12/02/23 09:25 12/02/23 09:25 Labs: Lab Results 12/02/23 Range/Units 09:25 WBC 7.8 (4.5-11.0) X10^3/uL RBC 4.47 L (4.5-5.9) X10^6/uL Hgb 14.9 (13.5-17.5) g/dL Hct 43.0 (41-53) % MCV 96.0 (80-100) fL MCH 33.4 (26-34) PG MCHC 34.8 (30-36) % RDW 14.9 H (11.6-14.8) % Plt Count 350 (150-400) X10^3/uL Neut % (Auto) 74.6 (50-75) % Lymph % (Auto) 12.5 L (25-40) % Hamblen % (Auto) 10.3 (3-14) % Eos % (Auto) 1.2 L (2-4) % Baso % (Auto) 1.4 (0-2) % Neut # (Auto) 5800 (3896-4244) /uL Lymph # (Auto) 1000 L (9421-5408) /uL Hamblen # (Auto) 800 (0-900) /uL Eos # (Auto) 100 (0-450) /uL Baso # (Auto) 100 (0-100) /uL PT 26.4 H (9.4-12.5) SECONDS INR 2.3 H (0.9-1.3) APTT 40 H (25.1-36.5) SECONDS Sodium 138 (137-145) mmol/L Potassium 3.4 (3.4-5.1) mmol/L Chloride 104 (98-107) mmol/L Carbon Dioxide 25 (22-32) mmol/L BUN 15 (9-20) mg/dL Creatinine 0.84 (0.66-1.25) mg/dL Estimated GFR > 60 (>60) mL/min BUN/Creatinine Ratio 17.9 (6-22) Glucose 115 H (80-110) mg/dL Calcium 9.7 (8.4-10.2) mg/dL Total Bilirubin 1.0 (0.2-1.3) mg/dL AST 34 (17-59) IU/L ALT 23 (<50) IU/L Alkaline Phosphatase 112 (38-126) U/L Total Protein 8.6 H (6.3-8.2) g/dL Albumin 5.0 (3.5-5.0) g/dL Globulin 3.6 (1.7-4.1) g/dL Albumin/Globulin Ratio 1.4 (1.0-2.8) Blood Type B Negative Antibody Screen Negative ECG Data Attestation: I personally reviewed and interpreted this ECG as follows: Interpretation: Sinus rhythm premature atrial complexes rate of 69 ID 168 QRS 86 QTC of 420, no acute ST elevation depression. MDM Narrative Medical decision making narrative: 73-year-old male on warfarin for prior pulmonary emboli, patient have a hemorrhoid appears to be the source of bleeding I can see where it just clotted off. Soft it is not thrombosed hemorrhoid. No active bleeding at this moment. Patient is hemodynamically stable felt appropriate for discharge. We will use topical medications to see if this is helpful. Labs show white count of 7.8 hemoglobin of 14.9 improved from 202 when was, platelets of 350. INR is 2.3 patient is anticoagulated with the warfarin. Electrolytes are appropriate renal function normal glucose is 115 LFTs are negative. Rate of 69 ID 168 QRS 86 QTC of 420, no acute ST elevation or depression. 73-year-old male hemodynamically stable, normal cbc. Patient does not have active bleeding at the but appears to have source for rectal hemorrhoid. We will use topical medications, patient has history of pulmonary emboli so we will not hold his warfarin at this time. Discharge Plan Departure Patient Disposition: Home Clinical Impression: Bleeding external hemorrhoids Instructions: DI for Rectal Bleeding Activity Restrictions/Additional Instructions: Please follow-up for recheck. Contact for general surgery is included follow up for colonoscopy although it does not appear that the hemorrhoid that is external is the source of your bleeding today. Continue to use a stool softener such as your Dulcolax to keep your stool soft. Goal is soft formed stools not diarrhea or hard pebbly stools. Use topical medication as directed. Prescription was sent to [facility] in [place]. Please return if you are having increasing bleeding, new pain, new abdominal back or flank pain, lightheadedness or passing out, persistent vomiting, or other new or concerning changes. Prescriptions: New Proctofoam HC 1-1 % foam 1 applic ID QID PRN (Reason: hemorrhoids) Qty: 10 0RF No Action omeprazole 20 MG tablet,delayed release (DR/EC) 20 mg PO QPM Qty: 0 Patient Comments: Takes around 1530 cyclobenzaprine 10 MG tablet 10 mg PO TID PRN (Reason: Muscle Spasm) Qty: 0 aspirin [Yuan Low Dose Aspirin] 81 mg Tablet,Delayed Release (Dr/Ec) 81 mg PO DAILY cholecalciferol (vitamin D3) [Vitamin D3] 1,000 unit Capsule 1,000 unit PO DAILY hydrochlorothiazide 12.5 mg Capsule 12.5 mg PO DAILY methotrexate sodium 2.5 mg Tablet 20 mg PO QWEEK Patient Comments: 10mg BID on Tuesdays only gabapentin 300 mg Capsule 300 mg PO BID folic acid 1 mg Tablet 1 mg PO DAILY mirtazapine 15 mg Tablet 15 mg PO BEDTIME oxycodone 5 mg Tablet 5 mg PO BID PRN (Reason: Pain) latanoprost 0.005 % drops 1 drp EYE-BOTH ONCE PM enoxaparin 100 mg/mL syringe 70 mg SUBCUT BID Patient Comments: [NO ORIGINAL SIG] acetaminophen 325 mg Tablet 650 mg PO Q6H Qty: 240 0RF cyclobenzaprine 10 mg Tablet 10 mg PO TID Qty: 60 0RF oxycodone 5 mg tablet 5 mg PO Q3H PRN (Reason: pain (scale score 7-10)) Qty: 60 0RF atorvastatin 40 mg Tablet 40 mg PO BEDTIME warfarin 5 mg Tablet 5 mg PO SEEINSTR Patient Comments: Currently on 8mg daily Rx Instructions: 5mg alt w/7.5mg daily Referrals: Lorna Terry MD [Primary Care Provider] - Stand Alone Forms: Patient Portal/API
--- NOTE | 2023-12-02 10:40 | PC.NURSE ---
RN assisted MD Garnett with rectal exam; small wound noted on external hemorrhoid.
[2023-12-02 11:21] VITALS: BP 157/83; PULSE 64; RESP 16; TEMP 37.1; O2SAT 96
== END 2023-12-02 11:22 | disposition home or self-care (01) ==
PROVIDERS: Emergency Provider Emergency Medicine; Family Provider Internal Medicine; PCP Student in an Organized Health Care Education/Training Program
DX: K64.4 Residual hemorrhoidal skin tags (principal); Z79.01 Long term (current) use of anticoagulants
CPT/HCPCS: 36415; 80053; 85025; 85610; 85730; 86850; 86900; 86901; 93005; 99283

== ENCOUNTER 2023-12-16 08:15 | Day surgery (SDC) | payer MEDICARE, OTHER, SELFPAY ==
[2023-04-22 17:56] VITALS: BMI 25.1
--- NOTE | 2023-12-16 | PATH_ITS ---
[facility] Accession Number: [id number] No. of containers..01 Tissue . 01 Material submitted: . body - RANDOM BIOPSIES . 01 Clinical history: . HISTORY OF CROHN'S . 01 Diagnosis: RANDOM COLON, BIOPSY: Colonic mucosa with no significant diagnostic abnormality. Negative for active inflammation, granulomas, dysplasia, and malignancy. [facility] 12/18/2023 1050 Local . 01 Electronically signed: . Iron Monroe MD, PhD, Pathologist NPI- [id number] . 01 Gross description: . RANDOM BIOPSIES: Received in formalin are multiple fragment(s) of carbajal, soft tissue measuring 0.1 x 0.1 x 0.1 cm to 0.2 x 0.2 x 0.2 cm submitted entirely in 1 cassette(s) /ALFONSO 12/17/2023 0109 Local . 01 Pathologist provided ICD-10: K50.90 . 01 CPT . 583127 Specimen Comment: A courtesy copy of this report has been sent to [phone] Performed at: [address] [id number] MD Tito Jacobsen MD Phone: [phone]
--- NOTE | 2023-12-16 08:53 | PM.PREOP ---
Pre-operative Note COVID-19 COVID-19 status: Not tested Interval Note History & Physical reviewed/Exam performed by Physician: Yes Changes to H&P: No ASA Class (for procedural sedation): III
--- NOTE | 2023-12-16 08:54 | PM.OP.COLON ---
Operative Date/Time/Diagnoses Date of procedure: 12/16/23 Pre-op diagnosis: See indication and findings Procedure & Clinicians Study performed: Colonoscopy Indications: History of Crohn's disease with last colonoscopy 2 years ago. Has history of rectal bleeding and currently on Coumadin for recurrent pulmonary emboli. Surgeon: Aimee Lara Procedure Notes Procedure in detail: After informed consent was obtained the patient was placed in left lateral decubitus position. The video colonoscope was introduced the rectum slowly advanced cecum. Preparation was good. On slow withdrawal mucosa was carefully examined. The scope was removed. The patient tolerated procedure well. Blood loss none Complications none Sedation mac Findings 1. Surgical anastomosis at 70 cm. This could be splenic flexure but I think more likely is the hepatic flexure. There was trivial inflammation here. 2. Normal terminal ileum to 15-20 cm 3. Completely normal colonoscopy from anastomosis to the anus. Random biopsies were taken to every 10 cm WIL should have follow-up colonoscopy in 2 years. He should follow-up with [facility] if necessary. He can restart his Coumadin tomorrow.
[2023-12-16 09:05] VITALS: BP 155/82; PULSE 72; RESP 18; TEMP 36.8; O2SAT 96
[2023-12-16] MEDS: LACTATED RINGERS 1,000 ML 42 ML IV (09:18)
[2023-12-16 09:50] VITALS: BP 104/60; PULSE 68; RESP 15; TEMP 36.5; O2SAT 92
[2023-12-16 09:54] VITALS: BP 103/60; PULSE 66; RESP 14; O2SAT 92
[2023-12-16 09:59] VITALS: BP 100/61; PULSE 64; RESP 14; O2SAT 92
[2023-12-16 10:05] VITALS: BP 124/68; PULSE 71; RESP 14; TEMP 36.5; O2SAT 95
[2023-12-16 10:10] VITALS: BP 119/72; PULSE 66; RESP 11; TEMP 36.4; O2SAT 94
== END 2023-12-16 10:35 | disposition home or self-care (01) ==
PROVIDERS: Family Provider Internal Medicine; PCP Student in an Organized Health Care Education/Training Program; Referring Provider Internal Medicine Gastroenterology; Visit Provider Internal Medicine Gastroenterology
PROC: 0DJD8ZZ Inspection of Lower Intestinal Tract, Via Natural or Artificial Opening Endoscopic (ICD-10-PCS; CPT 45378; principal; 2023-12-16 09:30)
DX: K62.5 Hemorrhage of anus and rectum (principal); Z87.19 Personal history of other diseases of the digestive system
CPT/HCPCS: 45380; J2704

== ENCOUNTER 2024-03-17 07:08 | Emergency (ER) | payer MEDICARE, OTHER, SELFPAY ==
[2023-04-22 17:56] VITALS: BMI 25.1
[2024-03-17] VITALS (10 sets, daily range): BP systolic 138–185; BP diastolic 68–83; PULSE 54–72; RESP 9–25; TEMP 36.9; O2SAT 95–98; BMI 25.1
[2024-03-17 07:28] LABS: Add Manual Diff / Slide Review NO; Basophils Absolute Auto 100 /uL (0-100); Eosinophils Absolute Auto 300 /uL (0-450); Eosinophils Percent Auto 2.4 % (2-4); Hemoglobin 14.6 g/dL (13.5-17.5); Lymphocytes Absolute Auto 2000 /uL (1100-4500); Lymphocytes Percent Auto 19.4 % (25-40); Mean Corpuscular HGB Conc 35.6 % (30-36); Mean Corpuscular Hemoglobin 33.4 PG (26-34); Mean Corpuscular Volume 93.9 fL (80-100); Monocytes Absolute Auto 1200 /uL (0-900); Monocytes Percent Auto 11.6 % (3-14); Neutrophils Absolute Auto 6900 /uL (1500-7000); Neutrophils Percent Auto 65.6 % (50-75); Platelet Count 297 X10^3/uL (150-400); Red Blood Cell Count 4.36 X10^6/uL (4.5-5.9); Red Cell Distribution Width 14.2 % (11.6-14.8); White Blood Cell Count 10.5 X10^3/uL (4.5-11.0)
[2024-03-17 07:34] LABS: INR 3.7 (0.9-1.3); Prothrombin Time 40.9 SECONDS (9.4-12.5)
[2024-03-17 07:40] LABS: Alanine Aminotransferase 19 IU/L (<50); Albumin 4.6 g/dL (3.5-5.0); Albumin Globulin Ratio 1.5 (1.0-2.8); Alkaline Phosphatase 93 U/L (38-126); Aspartate Aminotransferase 26 IU/L (17-59); BUN Creatinine Ratio 13.7 (6-22); Bilirubin Total 0.7 mg/dL (0.2-1.3); Blood Urea Nitrogen 13 mg/dL (9-20); Calcium 9.9 mg/dL (8.4-10.2); Carbon Dioxide 31 mmol/L (22-32); Chloride 102 mmol/L (98-107); Estimated Glomerular Filt Rate > 60 mL/min (>60); Globulin 3.1 g/dL (1.7-4.1); Glucose 103 mg/dL (80-110); HEMOLYSIS < 15 (0-50); Lipase 181 U/L (23-300); Potassium 3.3 mmol/L (3.4-5.1); Sodium 140 mmol/L (137-145); Total Protein 7.7 g/dL (6.3-8.2)
[2024-03-17 07:56] LABS: Lactate (Lactic Acid) 1.6 mmol/L (0.7-2.1)
--- NOTE | 2024-03-17 08:03 | ED_ITS ---
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 He describes some dysuria, no fevers or chills. No nausea. He is passing gas he had a normal bowel movement last night that did not influence his pain. He has not describing chest pain, palpitations, headaches Related Data Home Medications Medication Instructions Recorded Confirmed cyclobenzaprine 10 mg tablet 10 mg PO TID PRN Muscle Spasm ##0 09/08/11 12/16/23 omeprazole 20 mg tablet,delayed 20 mg PO QPM ##0 09/08/11 12/16/23 release aspirin 81 mg tablet,delayed 81 mg PO DAILY 04/13/19 12/16/23 release (Yuan Low Dose Aspirin) cholecalciferol (vitamin D3) 25 1,000 unit PO DAILY 04/13/19 04/22/23 mcg (1,000 unit) capsule (Vitamin D3) hydrochlorothiazide 12.5 mg capsule 12.5 mg PO DAILY 04/13/19 12/16/23 atorvastatin 40 mg tablet 40 mg PO BEDTIME 12/18/20 12/16/23 warfarin 5 mg tablet 5 mg PO SEEINSTR 12/18/20 12/16/23 folic acid 1 mg tablet 1 mg PO DAILY 04/16/23 04/22/23 methotrexate sodium 2.5 mg tablet 20 mg PO QWEEK 04/16/23 12/16/23 mirtazapine 15 mg tablet 15 mg PO BEDTIME 04/16/23 12/16/23 latanoprost 0.005 % eye drops 1 drp EYE-BOTH ONCE PM 04/22/23 04/22/23 Previous Rx's Medication Instructions Recorded acetaminophen 325 mg tablet 650 mg (2 x 325 mg) PO Q6H #240 04/24/23 tabs cyclobenzaprine 10 mg tablet 10 mg PO TID #60 tabs 04/24/23 hydrocortisone 1 %-pramoxine 1 % 1 applic [place] QID PRN hemorrhoids 12/02/23 rectal foam (Proctofoam HC) #10 grams ciprofloxacin HCl 750 mg tablet 750 mg PO BID #20 tabs 03/17/24 hydromorphone 2 mg tablet 2 mg PO Q6H PRN pain #20 tabs 03/17/24 (Dilaudid) metronidazole 500 mg tablet 500 mg PO TID #30 tabs 03/17/24 Allergies Allergy/AdvReac Type Severity Reaction Status Date / Time hydrocodone Allergy Severe Welts, Verified 12/16/23 08:53 sweats, loss of appetite hydroxychloroquine Allergy Severe Rash Verified 12/16/23 08:53 Sulfa (Sulfonamide Allergy Severe Rash Verified 12/16/23 08:53 Antibiotics) adhesive tape Allergy Mild Rash Verified 12/16/23 08:53 sulfamethoxazole Allergy Mild Rash Verified 12/16/23 08:53 [From ] trimethoprim [From ] Allergy Mild Rash Verified 12/16/23 08:53 Review of Systems Review of Systems Narrative: Pertinent positive and negative findings as per HPI Patient History Medical History Crohn disease 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) Anxiety Eczema Diverticulitis GERD (gastroesophageal reflux disease) Hearing impaired Spinal stenosis HTN (hypertension) Depression DJD (degenerative joint disease) Arthritis Pulmonary embolism Surgical History Hx of colonoscopy (08/14/21) History of esophagogastroduodenoscopy (EGD) (08/14/21) 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 Able to give a complete and coherent history. Well-nourished well-developed HEENT: Moist mucous membranes, normal sclera with reactive pupils, Neck: No JVD, supple Respiratory: Lungs are clear to auscultation, no wheezing no rales no rhonchi. Full and symmetrical air movement Cardiac: Regular rate and rhythm no murmurs no bruits Abdomen: Soft, significant left lower quadrant pain with both guarding and developing rebound. No flank pain Skin: Warm and dry, no rashes Neurologic: Grossly neurologically intact with no obvious asymmetries or abnormalities Extremities: No trauma, well perfused Psych: Cooperative, appropriate insight and affect Course Orders Ordered: ED Orders 03/17/24 07:16 EKG-12 Lead Stat 03/17/24 07:20 Complete Blood Count AUTO DIFF Stat Comprehensive Metabolic Panel Stat Lactate (Lactic Acid) Stat Lipase Stat Prothrombin Time INR Stat 03/17/24 08:19 CT abdomen pelvis w con Stat Hydromorphone HCl (Hydromorphone 0.5 Mg Inj) 0.5 mg IV Q15MIN PRN PRN Reason: Pain, Last Admin: 03/17/24 08:44 Dose: 0.5 mg Documented By: MPO Ondansetron HCl (Ondansetron 4 Mg/2 Ml Inj) 4 mg IV NOW PRN PRN Reason: Nausea And Vomiting Ondansetron HCl (Ondansetron 4 Mg Odt) 4 mg PO NOW PRN PRN Reason: Nausea And Vomiting Discontinued Medications Ondansetron HCl (Ondansetron 4 Mg/2 Ml Inj) 4 mg IV NOW ONE Stop: 03/17/24 08:40 Vital Signs Vital signs: Vital Signs - 8 hr 03/17/24 07:12 03/17/24 07:12 03/17/24 07:16 Temperature 98.4 F Pulse Rate 72 61 Respiratory Rate 14 Blood Pressure 185/83 H 185/83 H Pulse Oximetry 98 98 Oxygen Delivery Method Room Air 03/17/24 07:30 03/17/24 07:30 03/17/24 07:50 Temperature Pulse Rate 61 57 L Respiratory Rate 19 16 Blood Pressure 152/72 H Pulse Oximetry 98 97 Oxygen Delivery Method 03/17/24 07:50 03/17/24 08:00 03/17/24 08:00 Temperature Pulse Rate 58 L Respiratory Rate 9 L Blood Pressure 163/73 H 138/70 Pulse Oximetry 96 Oxygen Delivery Method 03/17/24 08:35 03/17/24 08:36 03/17/24 08:36 Temperature Pulse Rate 59 L 59 L Respiratory Rate 17 Blood Pressure 172/70 H Pulse Oximetry 98 97 Oxygen Delivery Method Medical Decision Making Lab Data 03/17/24 07:20 03/17/24 07:20 Labs: Lab Results 03/17/24 Range/Units 07:20 WBC 10.5 (4.5-11.0) X10^3/uL RBC 4.36 L (4.5-5.9) X10^6/uL Hgb 14.6 (13.5-17.5) g/dL Hct 41.0 (41-53) % MCV 93.9 (80-100) fL MCH 33.4 (26-34) PG MCHC 35.6 (30-36) % RDW 14.2 (11.6-14.8) % Plt Count 297 (150-400) X10^3/uL Neut % (Auto) 65.6 (50-75) % Lymph % (Auto) 19.4 L (25-40) % Cedar % (Auto) 11.6 (3-14) % Eos % (Auto) 2.4 (2-4) % Baso % (Auto) 1.0 (0-2) % Neut # (Auto) 6900 (3657-6626) /uL Lymph # (Auto) 2000 (5498-3220) /uL Cedar # (Auto) 1200 H (0-900) /uL Eos # (Auto) 300 (0-450) /uL Baso # (Auto) 100 (0-100) /uL PT 40.9 H (9.4-12.5) SECONDS INR 3.7 H (0.9-1.3) Sodium 140 (137-145) mmol/L Potassium 3.3 L (3.4-5.1) mmol/L Chloride 102 (98-107) mmol/L Carbon Dioxide 31 (22-32) mmol/L BUN 13 (9-20) mg/dL Creatinine 0.95 (0.66-1.25) mg/dL Estimated GFR > 60 (>60) mL/min BUN/Creatinine Ratio 13.7 (6-22) Glucose 103 (80-110) mg/dL Lactate 1.6 (0.7-2.1) mmol/L Calcium 9.9 (8.4-10.2) mg/dL Total Bilirubin 0.7 (0.2-1.3) mg/dL AST 26 (17-59) IU/L ALT 19 (<50) IU/L Alkaline Phosphatase 93 (38-126) U/L Total Protein 7.7 (6.3-8.2) g/dL Albumin 4.6 (3.5-5.0) g/dL Globulin 3.1 (1.7-4.1) g/dL Albumin/Globulin Ratio 1.5 (1.0-2.8) Lipase 181 (23-300) U/L Urine Dip Bedside Urine Glucose Negative Bedside Urine Bilirubin - Negative Bedside Urine Ketone - Negative Urine Specific [place] 1.005 Bedside Urine Occult Blood - Negative Bedside Urine pH 8.0 Bedside Urine Protein - Negative Bedside Urine Urobilinogen - Negative Bedside Urine Nitrite - Negative Bedside Urine Leukocytes - Negative Esterase Point of care testing: Urine Dip Bedside Urine Glucose Negative Bedside Urine Bilirubin - Negative Bedside Urine Ketone - Negative Urine Specific [place] 1.005 Bedside Urine Occult Blood - Negative Bedside Urine pH 8.0 Bedside Urine Protein - Negative Bedside Urine Urobilinogen - Negative Bedside Urine Nitrite - Negative Bedside Urine Leukocytes - Negative Esterase Imaging Data CT scan - abdomen/pelvis: Radiologist's Impression: PROCEDURE: CT ABDOMEN PELVIS W CON INDICATIONS: LLQ pain TECHNIQUE: After the administration of intravenous contrast, axial sections acquired from the lung bases to the pubic symphysis. Coronal and sagittal reformats were performed. For radiation dose reduction, the following was used: automated exposure control, adjustment of mA and/or kV according to patient size. COMPARISON: None. FINDINGS: Image quality: Diagnostic. Lower Chest: Mild hiatal hernia. Heart size is within normal limits. Extreme lung bases are clear. ABDOMEN: Liver: No solid mass. Gallbladder: Layering small calcified gallstones. No gallbladder wall thickening. Biliary ducts: No biliary dilation. Pancreas: No ductal dilation. Spleen: Size is within normal limits. Adrenal Glands: No adrenal nodules. Kidneys and Ureters: No hydronephrosis. No solid mass. No complex renal cystic lesion which requires follow up. Stomach and Bowel: Extensive sigmoid diverticulosis. Acute non complicated sigmoid diverticulitis. Inflammatory change in the adjacent fat. No free air or abscess cavity. Peritoneum: No abnormal intraperitoneal fluid. No free air. Ventral Wall: No significant ventral hernia. Abdominal Nodes: No retroperitoneal or mesenteric adenopathy by size criteria. Vessels: Aorta and inferior vena cava are normal in size. PELVIS: Pelvic Organs: Unremarkable. Bladder: No bladder wall thickening, accounting for underdistention. Pelvic Nodes: No enlarged lymph nodes. Miscellaneous: No inguinal hernias are seen. Bones: No aggressive osseous abnormality. Total left hip arthroplasty. Posterior decompression and posterior lateral tyree and pedicle screw fixation at L4-L5. This results in metallic artifact. IMPRESSION: 1. Advanced diffuse cervical diverticulosis with superimposed non complicated acute sigmoid diverticulitis. Comment: If the patient has not had recent colonoscopy, recommend direct visualization after acute symptoms resolve to exclude underlying lesion. Dictated by: Hussain Steel M.D. on 03/17/2024 at 8:40 MDM Narrative Medical decision making narrative: CC: Left lower quadrant pain Complicating co-morbidities: Crohn's disease, history of diverticulitis, autoimmune arthritis on methotrexate Data collected from: patient Social determinants of health that may influence the patients condition: Medical records reviewed: December 16, 2023 colonoscopy results show a surgical anastomosis at 70 cm(patient reported no prior bowel surgery) with trivial inflammation, normal terminal ileus, interpretation is completely normal colonoscopy from anastomosis to the anus Differential considered: Diverticulitis with abscess, perforation, anastomosis leak, nephrolithiasis seems less likely Exam documented above, pertinent findings include: 73-year-old gentleman increasing pain for 4-5 days with significant left lower quadrant pain with both rebound and guarding Lab Test results independently reviewed as above. Pertinent findings: CBC shows no leukocytosis , no anemia Chemistries show potassium minimally low at 3.3. Normal creatinine. Normal liver studies INR is 3.7 (on warfarin for recurrent pulmonary emboli) Imaging studies independently reviewed: Acute sigmoid diverticulitis without perforation, free air or obvious abscess Treatments: We will begin ciprofloxacin and Flagyl, pain medications and will also recommend MiraLax to avoid constipation and keep stool soft to avoid pressure on the sigmoid colon Re-evaluations: Pain is adequately controlled. Rebounding guarding are no longer present Discussion: 73-year-old gentleman with a history of Crohn's disease and autoimmune arthritis with severe left lower quadrant pain no evidence sepsis, severe leukocytosis CT scan confirms diverticulitis without perforation or abscess. Findings reviewed with patient. We talked about fiber in the setting of his Crohn's disease. He typically has diarrhea. Discussed the fact that we want soft but slightly formed stools. Recommended psyllium supplementation to help with bulk and the diarrhea portion of symptoms and if needed MiraLax for constipation. He will be placed on Cipro and Flagyl. His INR is currently 3.7. Have asked him to hold Coumadin for the next 3 days and anticipation of the Cipro raising the INR. Recommended next Coumadin check on Thursday and message is sent to his primary physician to communicate that with the Coumadin Clinic at [facility]. At this point there has no indication for additional imaging or hospitalization. Questions are answered Discharge Plan Departure Patient Disposition: Home Clinical Impression: Diverticulitis Instructions: DI for Diverticulitis Activity Restrictions/Additional Instructions: Thank you for coming in You on your recent colonoscopy you had multiple diverticuli which is always going to put you at risk for having those infected which is then diverticulitis Keeping your stool consistency soft (think ripe banana) is going to be helpful in preventing future diverticulitis and more comfortable with your Crohn's disease. I would recommend psyllium supplementation daily. This adds bulk to diarrhea and pulls in water for constipated stools. If you find that you are constipated I would recommend adding an oral magnesium supplement daily or use of MiraLax. All of these are [id number]. To treat your diverticulitis, I am going to start you on ciprofloxacin twice a day. Flagyl we will be 3 times a day. Each of these will be for 10 days and you do need to complete the entire course. If you find that you are having increasing pain, can not have a bowel movement, fevers, confusion or new findings you need to return to the emergency department Your INR today was 3.7. Cipro will likely cause this to be higher. I would recommend that you hold your Coumadin for 3 days with anticipate in of restarting on the . I did send a message to your new primary care provider who will pass this on to the Coumadin Clinic. I also recommended INR recheck at the Coumadin Clinic on Thursday. If you notice signs of active bleeding you do need to return to the ER Prescriptions: New ciprofloxacin HCl 750 mg tablet 750 mg PO BID Qty: 20 0RF metronidazole 500 mg tablet 500 mg PO TID Qty: 30 0RF hydromorphone [Dilaudid] 2 mg tablet 2 mg PO Q6H PRN (Reason: pain) Qty: 20 0RF No Action omeprazole 20 MG tablet,delayed release (DR/EC) 20 mg PO QPM Qty: 0 Patient Comments: Takes around 1530 cyclobenzaprine 10 MG tablet 10 mg PO TID PRN (Reason: Muscle Spasm) Qty: 0 aspirin [Yuan Low Dose Aspirin] 81 mg Tablet,Delayed Release (Dr/Ec) 81 mg PO DAILY cholecalciferol (vitamin D3) [Vitamin D3] 1,000 unit Capsule 1,000 unit PO DAILY hydrochlorothiazide 12.5 mg Capsule 12.5 mg PO DAILY methotrexate sodium 2.5 mg Tablet 20 mg PO QWEEK Patient Comments: 10mg BID on Tuesdays only folic acid 1 mg Tablet 1 mg PO DAILY mirtazapine 15 mg Tablet 15 mg PO BEDTIME latanoprost 0.005 % drops 1 drp EYE-BOTH ONCE PM acetaminophen 325 mg Tablet 650 mg PO Q6H Qty: 240 0RF cyclobenzaprine 10 mg Tablet 10 mg PO TID Qty: 60 0RF atorvastatin 40 mg Tablet 40 mg PO BEDTIME warfarin 5 mg Tablet 5 mg PO SEEINSTR Patient Comments: Currently on 8mg daily Rx Instructions: 5mg alt w/7.5mg daily Proctofoam HC 1-1 % foam 1 applic [place] QID PRN (Reason: hemorrhoids) Qty: 10 0RF Referrals: Lorna Terry MD [Primary Care Provider] - Stand Alone Forms: Patient Portal/API/Survey
--- NOTE | 2024-03-17 08:19 | DI.CT.S_ITS ---
PROCEDURE: CT ABDOMEN PELVIS W CON INDICATIONS: LLQ pain TECHNIQUE: After the administration of intravenous contrast, axial sections acquired from the lung bases to the pubic symphysis. Coronal and sagittal reformats were performed. For radiation dose reduction, the following was used: automated exposure control, adjustment of mA and/or kV according to patient size. COMPARISON: None. FINDINGS: Image quality: Diagnostic. Lower Chest: Mild hiatal hernia. Heart size is within normal limits. Extreme lung bases are clear. ABDOMEN: Liver: No solid mass. Gallbladder: Layering small calcified gallstones. No gallbladder wall thickening. Biliary ducts: No biliary dilation. Pancreas: No ductal dilation. Spleen: Size is within normal limits. Adrenal Glands: No adrenal nodules. Kidneys and Ureters: No hydronephrosis. No solid mass. No complex renal cystic lesion which requires follow up. Stomach and Bowel: Extensive sigmoid diverticulosis. Acute non complicated sigmoid diverticulitis. Inflammatory change in the adjacent fat. No free air or abscess cavity. Peritoneum: No abnormal intraperitoneal fluid. No free air. Ventral Wall: No significant ventral hernia. Abdominal Nodes: No retroperitoneal or mesenteric adenopathy by size criteria. Vessels: Aorta and inferior vena cava are normal in size. PELVIS: Pelvic Organs: Unremarkable. Bladder: No bladder wall thickening, accounting for underdistention. Pelvic Nodes: No enlarged lymph nodes. Miscellaneous: No inguinal hernias are seen. Bones: No aggressive osseous abnormality. Total left hip arthroplasty. Posterior decompression and posterior lateral tyree and pedicle screw fixation at L4-L5. This results in metallic artifact. IMPRESSION: 1. Advanced diffuse cervical diverticulosis with superimposed non complicated acute sigmoid diverticulitis. Comment: If the patient has not had recent colonoscopy, recommend direct visualization after acute symptoms resolve to exclude underlying lesion. Dictated by: Hussain Steel M.D. on 03/17/2024 at 8:40 Approved by: Hussain Steel M.D. on 03/17/2024 at 8:45
[2024-03-17] MEDS: HYDROMORPHONE 0.5 MG INJ IV ×2 (08:44→09:34)
== END 2024-03-17 09:54 | disposition home or self-care (01) ==
PROVIDERS: Emergency Provider Emergency Medicine; Family Provider Internal Medicine; PCP Student in an Organized Health Care Education/Training Program
DX: K57.92 Diverticulitis of intestine, part unspecified, without perforation or abscess without bleeding (principal)
CPT/HCPCS: 36415; 74177; 80053; 81003; 83605; 83690; 85025; 85610; 93005; 96374; 99284; J1171; Q9967

== ENCOUNTER 2024-03-23 00:33 | Emergency (ER) | payer MEDICARE, OTHER, SELFPAY ==
[2023-04-22 17:56] VITALS: BMI 25.1
[2024-03-23] VITALS (7 sets, daily range): BP systolic 135–152; BP diastolic 74–90; PULSE 62–84; RESP 18; TEMP 37.3; O2SAT 98–99; BMI 24.4
--- NOTE | 2024-03-23 00:47 | DI.CT.S_ITS ---
PROCEDURE: CT ABDOMEN PELVIS W CON INDICATIONS: Recent diagnosis of diverticulitis with worsening pain TECHNIQUE: After the administration of intravenous contrast, axial sections acquired from the lung bases to the pubic symphysis. Coronal and sagittal reformats were performed. For radiation dose reduction, the following was used: automated exposure control, adjustment of mA and/or kV according to patient size. COMPARISON: [facility], CT, CT ABDOMEN PELVIS W CON, 03/17/2024, 8:26. FINDINGS: Image quality: Diagnostic Lower chest: Bibasal atelectasis/mild scarring. Coronary calcifications. Normal heart size. Moderate hiatal hernia. Liver: Possible hepatic steatosis. Gallbladder and biliary system: Cholelithiasis. Nondilated biliary system Pancreas: No ductal dilation Spleen: Nonenlarged Adrenals: No discrete nodules Kidneys: Possible scattered cysts. No definite solid renal mass or hydronephrosis. Vessels and lymph nodes: The main portal vein is patent. No abdominal aortic aneurysm or pathologic lymph nodes by size criteria. Bowel and peritoneum: No evidence of small bowel obstruction. Colonic diverticula. Overall liquid colonic contents are seen. Decreased inflammatory changes around the sigmoid colon compared to prior. No abscess. No pathologic ascites. Mildly prominent appendix at 6-7 mm, without significant surrounding inflammatory fat stranding. Body wall: Unremarkable Pelvis: Bladder is unremarkable. Heterogeneously enhancing prostate not well assessed on this study. Bones: Left hip arthroplasty with surrounding metallic artifact. There are degenerative changes. Lumbosacral fusion hardware also present. IMPRESSION: Colonic diverticulosis. Decreased sigmoid colon inflammatory changes. No abscess. Consider colonoscopy follow-up if not already performed. Liquid colonic contents are noted, likely diarrhea and colitis. No high-grade inflammatory changes. No small bowel obstruction. Mildly prominent appendix at 6-7 mm, without significant surrounding inflammatory fat stranding. Correlate with location of pain. Other findings as above. Dictated by: Dane Garibay M.D. on 03/23/2024 at 1:41 Approved by: Dane Garibay M.D. on 03/23/2024 at 1:48
--- NOTE | 2024-03-23 00:52 | ED.GENADULT ---
HPI - General Adult General Chief complaint: Abdominal Pain Stated complaint: diverticulitus Time Seen by Provider: 03/23/24 00:44 Source: patient Mode of arrival: Ambulatory Limitations: no limitations History of Present Illness HPI narrative: Patient is a 73-year-old male. History of Crohn's disease. Was seen here in the emergency several days ago. Was diagnosed with diverticulitis. Was started Cipro Flagyl. He states since that time he was had continued/worsening abdominal pain. He feels like his somewhat different than the pain that brought him in initially has also had diarrhea. Nausea but no vomiting. No blood in his stool. He was discharged home he was given prescription for Dilaudid. He was not taking the oral Dilaudid no urinary symptoms. Related Data Home Medications Medication Instructions Recorded Confirmed cyclobenzaprine 10 mg tablet 10 mg PO TID PRN Muscle Spasm ##0 09/08/11 12/16/23 omeprazole 20 mg tablet,delayed 20 mg PO QPM ##0 09/08/11 12/16/23 release aspirin 81 mg tablet,delayed 81 mg PO DAILY 04/13/19 12/16/23 release (Yuan Low Dose Aspirin) cholecalciferol (vitamin D3) 25 1,000 unit PO DAILY 04/13/19 04/22/23 mcg (1,000 unit) capsule (Vitamin D3) hydrochlorothiazide 12.5 mg capsule 12.5 mg PO DAILY 04/13/19 12/16/23 atorvastatin 40 mg tablet 40 mg PO BEDTIME 12/18/20 12/16/23 warfarin 5 mg tablet 5 mg PO SEEINSTR 12/18/20 12/16/23 folic acid 1 mg tablet 1 mg PO DAILY 04/16/23 04/22/23 methotrexate sodium 2.5 mg tablet 20 mg PO QWEEK 04/16/23 12/16/23 mirtazapine 15 mg tablet 15 mg PO BEDTIME 04/16/23 12/16/23 latanoprost 0.005 % eye drops 1 drp EYE-BOTH ONCE PM 04/22/23 04/22/23 Previous Rx's Medication Instructions Recorded acetaminophen 325 mg tablet 650 mg (2 x 325 mg) PO Q6H #240 04/24/23 tabs cyclobenzaprine 10 mg tablet 10 mg PO TID #60 tabs 04/24/23 hydrocortisone 1 %-pramoxine 1 % 1 applic OR QID PRN hemorrhoids 12/02/23 rectal foam (Proctofoam HC) #10 grams ciprofloxacin HCl 750 mg tablet 750 mg PO BID #20 tabs 03/17/24 hydromorphone 2 mg tablet 2 mg PO Q6H PRN pain #20 tabs 03/17/24 (Dilaudid) metronidazole 500 mg tablet 500 mg PO TID #30 tabs 03/17/24 amoxicillin 875 mg-potassium 1 tab PO Q8H 7 days #21 tabs 03/23/24 clavulanate 125 mg tablet Allergies Allergy/AdvReac Type Severity Reaction Status Date / Time hydrocodone Allergy Severe Welts, Verified 12/16/23 08:53 sweats, loss of appetite hydroxychloroquine Allergy Severe Rash Verified 12/16/23 08:53 Sulfa (Sulfonamide Allergy Severe Rash Verified 12/16/23 08:53 Antibiotics) adhesive tape Allergy Mild Rash Verified 12/16/23 08:53 sulfamethoxazole Allergy Mild Rash Verified 12/16/23 08:53 [From Janra] trimethoprim [From Janra] Allergy Mild Rash Verified 12/16/23 08:53 Review of Systems Review of Systems ROS Unobtainable: All systems reviewed & are unremarkable except as noted in HPI and below Patient History Medical History Crohn disease 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) Anxiety Eczema Diverticulitis GERD (gastroesophageal reflux disease) Hearing impaired Spinal stenosis HTN (hypertension) Depression DJD (degenerative joint disease) Arthritis Pulmonary embolism Surgical History Hx of colonoscopy (08/14/21) History of esophagogastroduodenoscopy (EGD) (08/14/21) 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) S/P epidural steroid injection History of vasectomy Hx of hernia repair Hx of tonsillectomy Hx of fusion of cervical spine (~2013) Social History household members: spouse Smoking Status: Former smoker alcohol intake: never Smoking Status: Former smoker Substance Use Type: marijuana Exam Initial Vital Signs Initial Vital Signs: Vital Signs Temperature 99.1 F 03/23/24 00:37 Pulse Rate 84 03/23/24 00:37 Respiratory Rate 18 03/23/24 00:37 Blood Pressure 152/90 H 03/23/24 00:37 Pulse Oximetry 98 03/23/24 00:37 Oxygen Delivery Method Room Air 03/23/24 00:37 Const General: cooperative, comfortable and No ill appearing HENMT Head: normal to inspection and normocephalic Resp Effort & Inspection: normal respiratory effort Auscultation: clear to auscultation bilaterally Cardio Rate: regular rate Rhythm: regular rhythm GI Inspection: normal to inspection and non-distended Palpation: soft, No firm, No guarding, No rigid and tender Neuro General: patient alert and patient awake Extrem General: normal to inspection Course Orders Ordered: ED Orders 03/23/24 00:47 CT abdomen pelvis w con Stat 03/23/24 00:52 Complete Blood Count AUTO DIFF Stat Comprehensive Metabolic Panel Stat Lactate (Lactic Acid) Stat Lipase Stat Prothrombin Time INR Stat Discontinued Medications Hydromorphone HCl (Hydromorphone 1 Mg Inj) 1 mg IV NOW ONE Stop: 03/23/24 00:52 Last Admin: 03/23/24 00:59 Dose: 1 mg Documented By: ROME Hydromorphone HCl (Hydromorphone 2 Mg Tablet) 2 mg PO NOW ONE Stop: 03/23/24 02:39 Last Admin: 03/23/24 02:47 Dose: 2 mg Documented By: MECCA Methylprednisolone (Methylprednisolone 125 Mg/2 Ml Vial) 125 mg IV NOW ONE Stop: 03/23/24 02:39 Last Admin: 03/23/24 02:47 Dose: 125 mg Documented By: MECCA Ondansetron HCl (Ondansetron 4 Mg/2 Ml Inj) 4 mg IV NOW ONE Stop: 03/23/24 01:15 Last Admin: 03/23/24 01:16 Dose: 4 mg Documented By: ROME Ondansetron HCl (Ondansetron 4 Mg Odt Prepack) 1 bottle MISC DIRECTED ONE Stop: 03/23/24 02:56 Last Admin: 03/23/24 02:57 Dose: 1 bottle Documented By: MECCA Vital Signs Vital signs: Vital Signs - 8 hr 03/23/24 00:37 03/23/24 00:58 03/23/24 00:58 Temperature 99.1 F Pulse Rate 84 84 Respiratory Rate 18 Blood Pressure 152/90 H 135/76 Pulse Oximetry 98 98 Oxygen Delivery Method Room Air 03/23/24 01:00 03/23/24 01:30 03/23/24 02:00 Temperature Pulse Rate 82 73 63 Respiratory Rate Blood Pressure Pulse Oximetry 98 99 99 Oxygen Delivery Method Room Air 03/23/24 02:30 03/23/24 02:55 03/23/24 02:55 Temperature Pulse Rate 65 62 Respiratory Rate Blood Pressure 144/74 H Pulse Oximetry 99 99 Oxygen Delivery Method Room Air Medical Decision Making Medical Records Medical records reviewed: Yes I reviewed the patient's medical records. Lab Data Lab results reviewed: Yes I reviewed the patient's lab results. 03/23/24 00:52 03/23/24 00:52 Labs: Lab Results 03/23/24 Range/Units 00:52 WBC 7.8 (4.5-11.0) X10^3/uL RBC 4.47 L (4.5-5.9) X10^6/uL Hgb 14.5 (13.5-17.5) g/dL Hct 41.4 (41-53) % MCV 92.8 (80-100) fL MCH 32.4 (26-34) PG MCHC 35.0 (30-36) % RDW 14.3 (11.6-14.8) % Plt Count 319 (150-400) X10^3/uL Neut % (Auto) 65.3 (50-75) % Lymph % (Auto) 13.3 L (25-40) % [place] % (Auto) 18.0 H (3-14) % Eos % (Auto) 1.9 L (2-4) % Baso % (Auto) 1.5 (0-2) % Neut # (Auto) 5100 (0380-3898) /uL Lymph # (Auto) 1000 L (2490-0714) /uL [place] # (Auto) 1400 H (0-900) /uL Eos # (Auto) 200 (0-450) /uL Baso # (Auto) 100 (0-100) /uL PT 23.5 H D (9.4-12.5) SECONDS INR 2.1 H (0.9-1.3) Sodium 129 L D (137-145) mmol/L Potassium 2.9 L (3.4-5.1) mmol/L Chloride 97 L (98-107) mmol/L Carbon Dioxide 19 L (22-32) mmol/L BUN 9 (9-20) mg/dL Creatinine 0.95 (0.66-1.25) mg/dL Estimated GFR > 60 (>60) mL/min BUN/Creatinine Ratio 9.5 (6-22) Glucose 172 H (80-110) mg/dL Lactate 1.6 (0.7-2.1) mmol/L Calcium 9.5 (8.4-10.2) mg/dL Total Bilirubin 0.7 (0.2-1.3) mg/dL AST 67 H (17-59) IU/L ALT 54 H (<50) IU/L Alkaline Phosphatase 94 (38-126) U/L Total Protein 7.5 (6.3-8.2) g/dL Albumin 4.5 (3.5-5.0) g/dL Globulin 3.0 (1.7-4.1) g/dL Albumin/Globulin Ratio 1.5 (1.0-2.8) Lipase 140 (23-300) U/L Imaging Data CT scan - abdomen/pelvis: Radiologist's Impression: PROCEDURE: CT ABDOMEN PELVIS W CON INDICATIONS: Recent diagnosis of diverticulitis with worsening pain TECHNIQUE: After the administration of intravenous contrast, axial sections acquired from the lung bases to the pubic symphysis. Coronal and sagittal reformats were performed. For radiation dose reduction, the following was used: automated exposure control, adjustment of mA and/or kV according to patient size. COMPARISON: [facility], CT, CT ABDOMEN PELVIS W CON, 03/17/2024, 8:26. FINDINGS: Image quality: Diagnostic Lower chest: Bibasal atelectasis/mild scarring. Coronary calcifications. Normal heart size. Moderate hiatal hernia. Liver: Possible hepatic steatosis. Gallbladder and biliary system: Cholelithiasis. Nondilated biliary system Pancreas: No ductal dilation Spleen: Nonenlarged Adrenals: No discrete nodules Kidneys: Possible scattered cysts. No definite solid renal mass or hydronephrosis. Vessels and lymph nodes: The main portal vein is patent. No abdominal aortic aneurysm or pathologic lymph nodes by size criteria. Bowel and peritoneum: No evidence of small bowel obstruction. Colonic diverticula. Overall liquid colonic contents are seen. Decreased inflammatory changes around the sigmoid colon compared to prior. No abscess. No pathologic ascites. Mildly prominent appendix at 6-7 mm, without significant surrounding inflammatory fat stranding. Body wall: Unremarkable Pelvis: Bladder is unremarkable. Heterogeneously enhancing prostate not well assessed on this study. Bones: Left hip arthroplasty with surrounding metallic artifact. There are degenerative changes. Lumbosacral fusion hardware also present. IMPRESSION: Colonic diverticulosis. Decreased sigmoid colon inflammatory changes. No abscess. Consider colonoscopy follow-up if not already performed. Liquid colonic contents are noted, likely diarrhea and colitis. No high-grade inflammatory changes. No small bowel obstruction. Mildly prominent appendix at 6-7 mm, without significant surrounding inflammatory fat stranding. Correlate with location of pain. Other findings as above. MDM Narrative Medical decision making narrative: Afebrile. No leukocytosis diffuse tenderness. Given his recent diagnosis of diverticulitis in his history of Crohn's disease a repeat CT scan was ordered. Shows no signs of perforation. No signs of abscess. No signs of bowel obstruction. Actually shows improvement diverticulitis. He does not have right lower quadrant pain consistent with a appendicitis. He was not taken his home oral Dilaudid that he was prescribed. He states that his symptoms seem to be getting worse since he started the Cipro and Flagyl. He potentially could be not tolerating the Flagyl well. Plan will be to have him stop the Cipro and Flagyl. Will place him on Augmentin. First dose given here in the ER. Recommended that he take the pain medication that he was prescribed as needed. He will need follow-up with his primary doctor. He was given return precautions Discharge Plan Departure Patient Disposition: Home Clinical Impression: Diverticulitis, Abdominal pain Instructions: DI for Diverticulitis, DI for Abdominal Pain-Adult Activity Restrictions/Additional Instructions: Recommend that you stop taking the ciprofloxacin and the Flagyl/metronidazole. These were the antibiotics that were prescribed you during your last ER visit. We are going to switch to a new medicine called Augmentin. Recommend that you eat a bland diet and increase your fluid intake. Use the pain medication that you were prescribed during your last visit as needed for discomfort. Contact your primary care doctor for a follow-up. Prescriptions: New amoxicillin-pot clavulanate 875-125 mg tablet 1 tab PO Q8H 7 Days Qty: 21 0RF No Action omeprazole 20 MG tablet,delayed release (DR/EC) 20 mg PO QPM Qty: 0 Patient Comments: Takes around 1530 cyclobenzaprine 10 MG tablet 10 mg PO TID PRN (Reason: Muscle Spasm) Qty: 0 aspirin [Yuan Low Dose Aspirin] 81 mg Tablet,Delayed Release (Dr/Ec) 81 mg PO DAILY cholecalciferol (vitamin D3) [Vitamin D3] 1,000 unit Capsule 1,000 unit PO DAILY hydrochlorothiazide 12.5 mg Capsule 12.5 mg PO DAILY methotrexate sodium 2.5 mg Tablet 20 mg PO QWEEK Patient Comments: 10mg BID on Tuesdays only folic acid 1 mg Tablet 1 mg PO DAILY mirtazapine 15 mg Tablet 15 mg PO BEDTIME latanoprost 0.005 % drops 1 drp EYE-BOTH ONCE PM acetaminophen 325 mg Tablet 650 mg PO Q6H Qty: 240 0RF cyclobenzaprine 10 mg Tablet 10 mg PO TID Qty: 60 0RF atorvastatin 40 mg Tablet 40 mg PO BEDTIME warfarin 5 mg Tablet 5 mg PO SEEINSTR Patient Comments: Currently on 8mg daily Rx Instructions: 5mg alt w/7.5mg daily Proctofoam HC 1-1 % foam 1 applic OR QID PRN (Reason: hemorrhoids) Qty: 10 0RF ciprofloxacin HCl 750 mg tablet 750 mg PO BID Qty: 20 0RF metronidazole 500 mg tablet 500 mg PO TID Qty: 30 0RF hydromorphone [Dilaudid] 2 mg tablet 2 mg PO Q6H PRN (Reason: pain) Qty: 20 0RF Referrals: Lorna Terry MD [Primary Care Provider] - Stand Alone Forms: Patient Portal/API/Survey
[2024-03-23] MEDS: HYDROMORPHONE 1 MG INJ IV (00:59)
[2024-03-23 01:05] LABS: INR 2.1 (0.9-1.3); Prothrombin Time 23.5 SECONDS (9.4-12.5)
[2024-03-23 01:10] LABS: Add Manual Diff / Slide Review NO; Alanine Aminotransferase 54 IU/L (<50); Albumin 4.5 g/dL (3.5-5.0); Albumin Globulin Ratio 1.5 (1.0-2.8); Alkaline Phosphatase 94 U/L (38-126); Aspartate Aminotransferase 67 IU/L (17-59); BUN Creatinine Ratio 9.5 (6-22); Basophils Absolute Auto 100 /uL (0-100); Basophils Percent Auto 1.5 % (0-2); Bilirubin Total 0.7 mg/dL (0.2-1.3); Blood Urea Nitrogen 9 mg/dL (9-20); Calcium 9.5 mg/dL (8.4-10.2); Carbon Dioxide 19 mmol/L (22-32); Chloride 97 mmol/L (98-107); Eosinophils Absolute Auto 200 /uL (0-450); Eosinophils Percent Auto 1.9 % (2-4); Estimated Glomerular Filt Rate > 60 mL/min (>60); Glucose 172 mg/dL (80-110); HEMOLYSIS 16 (0-50); Hematocrit 41.4 % (41-53); Hemoglobin 14.5 g/dL (13.5-17.5); Lactate (Lactic Acid) 1.6 mmol/L (0.7-2.1); Lipase 140 U/L (23-300); Lymphocytes Absolute Auto 1000 /uL (1100-4500); Lymphocytes Percent Auto 13.3 % (25-40); Mean Corpuscular Hemoglobin 32.4 PG (26-34); Mean Corpuscular Volume 92.8 fL (80-100); Monocytes Absolute Auto 1400 /uL (0-900); Neutrophils Absolute Auto 5100 /uL (1500-7000); Neutrophils Percent Auto 65.3 % (50-75); Platelet Count 319 X10^3/uL (150-400); Potassium 2.9 mmol/L (3.4-5.1); Red Blood Cell Count 4.47 X10^6/uL (4.5-5.9); Red Cell Distribution Width 14.3 % (11.6-14.8); Sodium 129 mmol/L (137-145); Total Protein 7.5 g/dL (6.3-8.2); White Blood Cell Count 7.8 X10^3/uL (4.5-11.0)
--- NOTE | 2024-03-23 01:10 | PC.NURSE ---
Pt reports some difficulty with urination. 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
[2024-03-23] MEDS: ONDANSETRON 4 MG/2 ML INJ IV (01:16)
[2024-03-23] MEDS: methylPREDNISolone 125 MG/2 ML VIAL IV (02:47)
[2024-03-23] MEDS: HYDROMORPHONE 2 MG TABLET PO (02:47)
[2024-03-23] MEDS: ONDANSETRON 4 MG ODT PREPACK 1 BOTTLE MISC (02:57)
== END 2024-03-23 03:15 | disposition home or self-care (01) ==
PROVIDERS: Emergency Provider Emergency Medicine; Family Provider Internal Medicine; PCP Student in an Organized Health Care Education/Training Program
DX: K57.92 Diverticulitis of intestine, part unspecified, without perforation or abscess without bleeding (principal); R10.9 Unspecified abdominal pain
CPT/HCPCS: 36415; 74177; 80053; 83605; 83690; 85025; 85610; 96374; 96375; 99284; J1171; J2405; J2919; Q9967

== ENCOUNTER 2024-09-10 18:52 | Observation (INO) | payer MEDICARE, OTHER, SELFPAY ==
[2023-04-22 17:56] VITALS: BMI 25.1
[2024-09-10] VITALS (16 sets, daily range): BP systolic 108–202; BP diastolic 61–88; PULSE 54–66; RESP 12–26; TEMP 36.6; O2SAT 96–100; BMI 25.8
--- NOTE | 2024-09-10 19:04 | EKG_ITS ---
[address] [address] Test Date: 2024-09-10 Pat Name: Aj Parr Jr Department: Room: Gender: Male [employer]ft Worker: LEXI : 1950 Requested By: Order Number: [id number] Reading MD: Devan Roa MD Measurements Intervals [place] Rate: 60 P: 59 GA: 176 QRS: -54 QRSD: 84 T: 25 QT: 404 QTc: 404 Interpretive Statements Normal sinus rhythm Left axis deviation Electronically Signed On 09-11-2024 7:57:49 PDT by Devan Roa MD
--- NOTE | 2024-09-10 19:04 | DI.RAD.S_ITS ---
PROCEDURE: XR CHEST 1V INDICATIONS: chest pain TECHNIQUE: One view of the chest was acquired. COMPARISON: None. FINDINGS: Surgical changes and devices: Cervical spinal fusion hardware is present. Lungs and pleura: Lungs are clear. No pleural effusions or pneumothorax. Mediastinum: Mediastinal contours appear normal. Heart size is normal. Bones and chest wall: No suspicious bony lesions. Overlying soft tissues appear unremarkable. IMPRESSION: No acute cardiopulmonary abnormality is seen. Approved by: Rafiq Maciel M.D. on 09/10/2024 at 20:00
[2024-09-10 19:26] LABS: INR 1.6 (0.9-1.3); Prothrombin Time 17.5 SECONDS (9.4-12.5)
[2024-09-10 19:28] LABS: PTT Partial Thromboplastin Tim 30 SECONDS (25.1-36.5)
[2024-09-10 19:30] LABS: Add Manual Diff / Slide Review NO; Alanine Aminotransferase 30 IU/L (<50); Albumin 4.7 g/dL (3.5-5.0); Albumin Globulin Ratio 1.7 (1.0-2.8); Alkaline Phosphatase 68 U/L (38-126); Aspartate Aminotransferase 35 IU/L (17-59); BUN Creatinine Ratio 19.5 (6-22); Basophils Absolute Auto 100 /uL (0-100); Basophils Percent Auto 1.3 % (0-2); Bilirubin Total 0.8 mg/dL (0.2-1.3); Blood Urea Nitrogen 23 mg/dL (9-20); Calcium 9.6 mg/dL (8.4-10.2); Carbon Dioxide 25 mmol/L (22-32); Chloride 103 mmol/L (98-107); Creatine Kinase 150 U/L (55-170); Eosinophils Absolute Auto 200 /uL (0-450); Eosinophils Percent Auto 2.5 % (2-4); Estimated Glomerular Filt Rate > 60 mL/min (>60); Globulin 2.8 g/dL (1.7-4.1); Glucose 128 mg/dL (70-99); HEMOLYSIS < 15 (0-50); Hematocrit 39.2 % (41-53); Hemoglobin 13.4 g/dL (13.5-17.5); Lipase 258 U/L (23-300); Lymphocytes Absolute Auto 1600 /uL (1100-4500); Lymphocytes Percent Auto 24.5 % (25-40); Magnesium 2.2 mg/dL (1.6-2.3); Mean Corpuscular HGB Conc 34.3 % (30-36); Mean Corpuscular Hemoglobin 33.9 PG (26-34); Monocytes Absolute Auto 600 /uL (0-900); Monocytes Percent Auto 8.9 % (3-14); Neutrophils Absolute Auto 4200 /uL (1500-7000); Neutrophils Percent Auto 62.8 % (50-75); Platelet Count 290 X10^3/uL (150-400); Potassium 3.5 mmol/L (3.4-5.1); Red Blood Cell Count 3.96 X10^6/uL (4.5-5.9); Red Cell Distribution Width 14.2 % (11.6-14.8); Sodium 137 mmol/L (137-145); Total Protein 7.5 g/dL (6.3-8.2); White Blood Cell Count 6.7 X10^3/uL (4.5-11.0)
[2024-09-10 19:42] LABS: NT-proBNP (BNP-Adult 18+) 134 pg/mL (<125); Troponin I < 0.012 ng/mL (0.01-0.034)
[2024-09-10 22:00] LABS: Troponin I < 0.012 ng/mL (0.01-0.034)
--- NOTE | 2024-09-10 22:06 | ED_ITS ---
HPI - Chest Pain General Chief Complaint: Chest Pain Stated Complaint: dizziness and shaky after marijuana Time Seen by Provider: 09/10/24 20:28 History of Present Illness HPI narrative: 74-year-old male with no known history of cardiac dysrhythmias or bradycardia, no known seizures, no known CAD, has history of pulmonary embolism, on warfarin chronic anticoagulation, this afternoon had serial 3 near syncopal events. At about 5:50 p.m. he was in standing position when he became sweaty and dizzy, no shortness of breath or chest pain, no shaking at that time, no focal weakness to face arm or leg. No visual complaints. He then sat down, shortly thereafter had again a sensation of dizziness without chest pain or shortness of breath, but felt like he was having a whiteout like experience in his field of vision about to pass out. No palpitation symptoms. No incontinence of urine or stool. He had some diaphoresis with both events, some nausea with both events, no vomiting. He then felt some shakiness, no seizure-like activity. Called EMS. Glucose 116. Transported without specific treatment EN route. Feels improved without specific treatment. Denies recent vomiting or diarrhea, cough, previous shortness of breath, chest discomfort, arm discomfort, leg discomfort, back discomfort. Denies trauma or falls injuries. Denies headache neck pain. Denies photophobia. Related Data Home Medications Medication Instructions Recorded Confirmed cyclobenzaprine 10 mg tablet 10 mg PO TID PRN Muscle Spasm ##0 09/08/11 09/11/24 omeprazole 20 mg tablet,delayed 20 mg PO QPM ##0 09/08/11 09/11/24 release aspirin 81 mg tablet,delayed 81 mg PO DAILY 04/13/19 12/16/23 release (Yuan Low Dose Aspirin) cholecalciferol (vitamin D3) 25 1,000 unit PO DAILY 04/13/19 04/22/23 mcg (1,000 unit) capsule (Vitamin D3) atorvastatin 40 mg tablet 40 mg PO BEDTIME 12/18/20 09/11/24 warfarin 5 mg tablet 5 mg PO SEEINSTR 12/18/20 12/16/23 folic acid 1 mg tablet 1 mg PO DAILY 04/16/23 04/22/23 methotrexate sodium 2.5 mg tablet 20 mg PO QWEEK 04/16/23 12/16/23 mirtazapine 15 mg tablet 15 mg PO BEDTIME 04/16/23 09/11/24 hydrochlorothiazide 25 mg tablet 25 mg PO DAILY 09/11/24 09/11/24 losartan 50 mg tablet 50 mg PO DAILY 09/11/24 09/11/24 timolol maleate 0.5 % eye gel EYE-BOTH BID 09/11/24 forming solution Previous Rx's Medication Instructions Recorded acetaminophen 325 mg tablet 650 mg (2 x 325 mg) PO Q6H #240 04/24/23 tabs cyclobenzaprine 10 mg tablet 10 mg PO TID #60 tabs 04/24/23 hydrocortisone 1 %-pramoxine 1 % 1 applic NM QID PRN hemorrhoids 12/02/23 rectal foam (Proctofoam HC) #10 grams ciprofloxacin HCl 750 mg tablet 750 mg PO BID #20 tabs 03/17/24 hydromorphone 2 mg tablet 2 mg PO Q6H PRN pain #20 tabs 03/17/24 (Dilaudid) metronidazole 500 mg tablet 500 mg PO TID #30 tabs 03/17/24 Allergies Allergy/AdvReac Type Severity Reaction Status Date / Time hydrocodone Allergy Severe Welts, Verified 12/16/23 08:53 sweats, loss of appetite hydroxychloroquine Allergy Severe Rash Verified 12/16/23 08:53 Sulfa (Sulfonamide Allergy Severe Rash Verified 12/16/23 08:53 Antibiotics) adhesive tape Allergy Mild Rash Verified 12/16/23 08:53 sulfamethoxazole Allergy Mild Rash Verified 12/16/23 08:53 [From ] trimethoprim [From ] Allergy Mild Rash Verified 12/16/23 08:53 Patient History Medical History Crohn disease Meningitis spinal (9) Anxiety Eczema Diverticulitis GERD (gastroesophageal reflux disease) Hearing impaired Spinal stenosis HTN (hypertension) Depression DJD (degenerative joint disease) Arthritis Pulmonary embolism Surgical History Hx of colonoscopy (08/14/21) History of esophagogastroduodenoscopy (EGD) (08/14/21) 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 HEAD: Atraumatic. Normocephalic. EYES: Pupils equal round and reactive. Extraocular motions intact. No scleral icterus. No injection or drainage. ENT: Nose without bleeding, purulent drainage. Throat without erythema, tonsillar hypertrophy or exudate. Airway patent. NECK: Trachea midline. Non tender CARDIOVASCULAR: Regular rate and rhythm without murmurs, gallops, or rubs. RESPIRATORY: Clear to auscultation. Breath sounds equal bilaterally. No wheezes, rales, or rhonchi. GASTROINTESTINAL: Abdomen soft, non-tender, nondistended. EXTREMITIES: No edema or joint tenderness. BACK: Nontender without deformity or crepitance. No flank tenderness. NEURO: AOx3. Clear speech. Cranial nerves normal as tested. Motor 5/5 bilateral upper extremities. Motor 5/5 bilateral lower extremities. Intact sensation to light touch face upper extremities lower extremities. Fyerkf-bk-stgy testing right and left normal and brisk. SKIN: No rash or erythema of visible areas Initial Vital Signs Initial Vital Signs: Vital Signs Pulse Rate 66 09/10/24 18:56 Blood Pressure 202/88 H 09/10/24 18:56 Pulse Oximetry 99 09/10/24 18:56 Course Orders Ordered: ED Orders 09/10/24 21:30 Trop I [Troponin I] Stat 09/10/24 22:55 CT angio head and neck Stat CT head/brain wo con Stat 09/10/24 22:57 CT angio chest PE protocol Stat 09/11/24 00:22 Consult to Physical Therapy Evaluate & Treat 09/11/24 00:23 Consult to Occupational Therapy Evaluate & Treat 09/11/24 06:00 Basic Metabolic Panel DAILY Complete Blood Count AUTO DIFF DAILY Acetaminophen (Acetaminophen 325 Mg Tablet) 650 mg PO Q6H PRN PRN Reason: Fever/Mild Pain (1-3) Aspirin (Aspirin Ec 81 Mg Tablet) 81 mg PO DAILY RAFAEL Atorvastatin Calcium (Atorvastatin 20 Mg Tablet) 40 mg PO BEDTIME RAFAEL Folic Acid (Folic Acid 1 Mg Tablet) 1 mg PO DAILY RAFAEL Sodium Chloride (Normal Saline 0.9%) 1,000 mls @ 75 mls/hr IV CONT [facility] Last Admin: 09/11/24 01:51 Dose: 75 mls/hr Documented By: SR Naloxone HCl (Naloxone 0.4 Mg/Ml Vial) 0.2 mg IV Q2MIN PRN PRN Reason: Opiate Reversal Ondansetron HCl (Ondansetron 4 Mg/2 Ml Inj) 4 mg IV Q8HR PRN PRN Reason: Nausea And Vomiting Pantoprazole Sodium (Pantoprazole Dr 20 Mg Tablet) 20 mg PO QPM [facility] Warfarin Protocol (Warfarin Per Pharmacy (Inr 2-3)) 1 request MISC NOW PRN PRN Reason: pulmonary embolism Warfarin Sodium (Warfarin 5 Mg Tablet) 5 mg PO SEEINSTR [facility] Discontinued Medications Sodium Chloride (Normal Saline 0.9%) 1,000 mls @ 1,000 mls/hr IV BOLUS ONE Stop: 09/10/24 23:55 Last Infusion: 09/11/24 00:31 Dose: Infused Documented By: Admin: 09/10/24 23:31 Dose: 1,000 mls/hr Documented By: CHRISTOPHER Vital Signs Vital signs: Vital Signs - 8 hr 09/10/24 22:00 09/10/24 22:00 09/10/24 22:30 Pulse Rate 55 L Pulse Rate [Orthostatic Lying] Pulse Rate [Orthostatic Sitting] Pulse Rate [Orthostatic Standing] Respiratory Rate 18 Blood Pressure 108/63 110/61 Blood Pressure [Orthostatic Lying] Blood Pressure [Orthostatic Sitting] Blood Pressure [Orthostatic Standing] Pulse Oximetry 97 09/10/24 22:30 09/10/24 23:21 09/10/24 23:30 Pulse Rate 54 L 59 L Pulse Rate [Orthostatic Lying] Pulse Rate [Orthostatic Sitting] Pulse Rate [Orthostatic Standing] Respiratory Rate 21 20 Blood Pressure 140/67 Blood Pressure [Orthostatic Lying] Blood Pressure [Orthostatic Sitting] Blood Pressure [Orthostatic Standing] Pulse Oximetry 96 99 09/10/24 23:30 09/10/24 23:32 09/10/24 23:32 Pulse Rate 57 L 59 L Pulse Rate [Orthostatic Lying] Pulse Rate [Orthostatic Sitting] Pulse Rate [Orthostatic Standing] Respiratory Rate 13 12 Blood Pressure 148/69 H Blood Pressure [Orthostatic Lying] Blood Pressure [Orthostatic Sitting] Blood Pressure [Orthostatic Standing] Pulse Oximetry 98 98 09/10/24 23:33 09/10/24 23:33 09/10/24 23:35 Pulse Rate 59 L Pulse Rate [Orthostatic Lying] 58 L Pulse Rate [Orthostatic Sitting] 59 L Pulse Rate [Orthostatic Standing] 60 Respiratory Rate 19 Blood Pressure 140/65 Blood Pressure [Orthostatic Lying] 140/67 Blood Pressure [Orthostatic Sitting] 148/69 H Blood Pressure [Orthostatic Standing] 140/65 Pulse Oximetry 98 09/11/24 00:00 09/11/24 00:00 09/11/24 00:30 Pulse Rate 58 L Pulse Rate [Orthostatic Lying] Pulse Rate [Orthostatic Sitting] Pulse Rate [Orthostatic Standing] Respiratory Rate 14 Blood Pressure 119/58 L 125/63 Blood Pressure [Orthostatic Lying] Blood Pressure [Orthostatic Sitting] Blood Pressure [Orthostatic Standing] Pulse Oximetry 99 09/11/24 00:30 Pulse Rate 60 Pulse Rate [Orthostatic Lying] Pulse Rate [Orthostatic Sitting] Pulse Rate [Orthostatic Standing] Respiratory Rate 15 Blood Pressure Blood Pressure [Orthostatic Lying] Blood Pressure [Orthostatic Sitting] Blood Pressure [Orthostatic Standing] Pulse Oximetry 97 MDM - Chest Pain Lab Data Attestation: I reviewed the patient's lab results. Lab results narrative: White blood cell count 6700, hemoglobin 13.4, platelets 290,000. Glucose 128. BUN 23 with creatinine 1.18. Sodium 137, potassium 3.5, serum CO2 25. Troponin negative/unmeasurable x2. BNP 134. 09/10/24 19:01 09/10/24 19:01 Labs: Lab Results 09/10/24 09/10/24 Range/Units 19:01 21:30 WBC 6.7 (4.5-11.0) X10^3/uL RBC 3.96 L (4.5-5.9) X10^6/uL Hgb 13.4 L (13.5-17.5) g/dL Hct 39.2 L (41-53) % MCV 99.0 (80-100) fL MCH 33.9 (26-34) PG MCHC 34.3 (30-36) % RDW 14.2 (11.6-14.8) % Plt Count 290 (150-400) X10^3/uL Neut % (Auto) 62.8 (50-75) % Lymph % (Auto) 24.5 L (25-40) % Duval % (Auto) 8.9 (3-14) % Eos % (Auto) 2.5 (2-4) % Baso % (Auto) 1.3 (0-2) % Neut # (Auto) 4200 (0200-1367) /uL Lymph # (Auto) 1600 (5578-2506) /uL Duval # (Auto) 600 (0-900) /uL Eos # (Auto) 200 (0-450) /uL Baso # (Auto) 100 (0-100) /uL PT 17.5 H (9.4-12.5) SECONDS INR 1.6 H (0.9-1.3) APTT 30 (25.1-36.5) SECONDS Sodium 137 (137-145) mmol/L Potassium 3.5 (3.4-5.1) mmol/L Chloride 103 (98-107) mmol/L Carbon Dioxide 25 (22-32) mmol/L BUN 23 H (9-20) mg/dL Creatinine 1.18 (0.66-1.25) mg/dL Estimated GFR > 60 (>60) mL/min BUN/Creatinine Ratio 19.5 (6-22) Glucose 128 H (70-99) mg/dL Calcium 9.6 (8.4-10.2) mg/dL Magnesium 2.2 (1.6-2.3) mg/dL Total Bilirubin 0.8 (0.2-1.3) mg/dL AST 35 (17-59) IU/L ALT 30 (<50) IU/L Alkaline Phosphatase 68 (38-126) U/L Total Creatine Kinase 150 (55-170) U/L Troponin I < 0.012 < 0.012 (0.01-0.034) ng/mL NT-Pro-B Natriuret Pep 134 H (<125) pg/mL Total Protein 7.5 (6.3-8.2) g/dL Albumin 4.7 (3.5-5.0) g/dL Globulin 2.8 (1.7-4.1) g/dL Albumin/Globulin Ratio 1.7 (1.0-2.8) Lipase 258 (23-300) U/L Imaging Data CT scan - head: Radiologist's Impression: [place] [id number] CT Scan Report Signed Patient: Aj Parr Jr MR#: [id number] : 1950 Acct:[id number] Age/Sex: 74 / M Date of Service: 09/10/24 Loc: ED Accession Number: [id number] Procedure: CT head/brain wo con Ordering Provider: Rufino Franklin MD PROCEDURE: CT HEAD/BRAIN WO CON INDICATIONS: near syncope x3 episodes TECHNIQUE: Noncontrast 4.5 mm thick angled axial sections acquired from the foramen magnum to the vertex, with coronal and sagittal reformats. For radiation dose reduction, the following was used: automated exposure control, adjustment of mA and/or kV according to patient size. COMPARISON: [facility], CT, CT ANGIO CHEST PE PROTOCOL, 09/10/2024, 23:19. [facility], CT, CT ANGIO HEAD AND NECK, 09/10/2024, 23:05. FINDINGS: Image quality: Diagnostic. CSF spaces: Basal cisterns are patent. No extra-axial fluid collections. The ventricles are symmetric in size and shape. Brain: No intracranial bleeds or mass effect. There is cerebral volume loss, with resultant ventricular and sulcal prominence. There are periventricular and deep white matter chronic small vessel ischemic changes. There is intracranial internal carotid artery atherosclerosis. Skull and face: Calvarium and visualized facial bones appear intact, without suspicious lesions. Sinuses: Visualized sinuses and mastoids are clear. IMPRESSION: Unremarkable noncontrast head CT. Dictated by: Harjinder Aldrich M.D. on 09/10/2024 at 22:25 Approved by: Harjinder Aldrich M.D. on 09/10/2024 at 22:27 CTA - brain/neck: Radiologist's Impression: [facility] [address] [place] [id number] [address] Scan Report Signed Patient: Aj Parr Jr MR#: [id number] : 1950 Acct:[id number] Age/Sex: 74 / M Date of Service: 09/10/24 Loc: ED Accession Number: [id number] Procedure: CT angio head and neck Ordering Provider: Rufino Franklin MD PROCEDURE: CT ANGIO HEAD AND NECK INDICATIONS: near syncope TECHNIQUE: After the administration of intravenous contrast, 1 mm thick sections acquired from the aortic arch through the [place] of [place]. 3-dimensional haltvxd-cmuledijq-lhflvradby (MIP) and/or volume rendering reformats were acquired of the central intracranial vasculature and neck separately. For radiation dose reduction, the following was used: automated exposure control, adjustment of mA and/or kV according to patient size. COMPARISON: [facility], CT, CT ANGIO CHEST PE PROTOCOL, 09/10/2024, 23:19. [facility], CT, CT HEAD/BRAIN WO CON, 09/10/2024, 23:05. [facility], CR, XR CHEST 1V, 09/10/2024, 19:29. FINDINGS: Image quality: There is streak artifact seen through the level of the shoulders. Limited by bolus timing, with venous contamination. BRAIN: CSF spaces: Ventricles are normal in size and shape. Basal cisterns are patent. No extra-axial fluid collections. Brain: No significant abnormality of the brain can be seen. Skull and face: Calvarium and facial bones appear intact, without suspicious lesions. Orbits appear normal. Sinuses: Sinuses and mastoids are clear. HEAD CT ANGIOGRAPHY: Anterior circulation: Intracranial internal carotid arteries are normal in size and flow. The flow within the paired anterior cerebral arteries is normal and symmetric. The flow within the middle cerebral arteries is normal and symmetric. The anterior communicating artery is seen. No aneurysms are seen. Posterior circulation: The right V4 segment is within normal limits. The left V4 segment largely terminates in the left posterior inferior cerebellar artery. There is a normal appearing basilar artery. Flow within the posterior cerebral arteries is normal and symmetric. No aneurysms are seen. NECK CT ANGIOGRAPHY: Carotid system: The great vessels demonstrate a conventional anatomy as they arise from the aortic arch. The origins of the common carotid arteries appear patent. The common carotid arteries demonstrate normal caliber and courses. The bifurcation regions are both widely patent. The internal carotid arteries demonstrate normal calibers and courses. Posterior circulation: The origins of the vertebral arteries both appear widely patent. The more superior extracranial portions of both vertebral arteries also demonstrate normal courses and calibers. The right vertebral artery is dominant to the left. Soft tissues: Visualized neck soft tissues demonstrate no suspicious abnormalities. Bones: No suspicious bony lesions. Visualized cervical spine appears normally aligned. Anterior fixation hardware can be seen C5 through C7. IMPRESSION: No imaging explanation is found for this patient's presenting symptoms. No significant intracranial arterial abnormality is seen. No significant abnormality is seen within the arteries of the neck. Additional findings: Jedruy-br-Ojrjfn developmental anomalies. Lower cervical spine fixation hardware Any quantitative measurements of stenosis were performed using NASCET criteria. Dictated by: Harjinder Aldrich M.D. on 09/10/2024 at 22:27 Approved by: Harjinder Aldrich M.D. on 09/10/2024 at 22:30 Chest x-ray: Radiologist's Impression: [address] [address] XRay Report Signed Patient: Aj Parr Jr MR#: [id number] : 1950 Acct:[id number] Age/Sex: 74 / M Date of Service: 09/10/24 Loc: ED Accession Number: [id number] Procedure: XR chest 1V Ordering Provider: Rufino Franklin MD PROCEDURE: XR CHEST 1V INDICATIONS: chest pain TECHNIQUE: One view of the chest was acquired. COMPARISON: None. FINDINGS: Surgical changes and devices: Cervical spinal fusion hardware is present. Lungs and pleura: Lungs are clear. No pleural effusions or pneumothorax. Mediastinum: Mediastinal contours appear normal. Heart size is normal. Bones and chest wall: No suspicious bony lesions. Overlying soft tissues appear unremarkable. IMPRESSION: No acute cardiopulmonary abnormality is seen. Approved by: Rafiq Maciel M.D. on 09/10/2024 at 20:00 CT angiogram chest: Radiologist's Impression: [address] [address] [address] Scan Report Signed Patient: Aj Parr Jr MR#: [id number] : 1950 Acct:[id number] Age/Sex: 74 / M Date of Service: 09/10/24 Loc: ED Accession Number: [id number] Procedure: CT angio chest PE protocol Ordering Provider: Rufino Franklin MD PROCEDURE: CT ANGIO CHEST PE PROTOCOL INDICATIONS: hx PE, near syncope, on warfarin TECHNIQUE: After the administration of intravenous contrast, 2 mm thick sections acquired from the pulmonary apices to the posterior costophrenic angles. 3-dimensional maximum intensity projection (MIP) coronal and sagittal reformats were then acquired through the thorax. For radiation dose reduction, the following was used: automated exposure control, adjustment of mA and/or kV according to patient size. COMPARISON: [facility], CT, CT ABDOMEN PELVIS W CON, 03/23/2024, 0:56. [facility], CT, CT HEAD/BRAIN WO CON, 09/10/2024, 23:05. [facility], CT, CT ANGIO HEAD AND NECK, 09/10/2024, 23:05. [facility], CR, XR CHEST 1V, 09/10/2024, 19:29. FINDINGS: Image quality: Diagnostic. Pulmonary arteries: Pulmonary arteries are normal in size, and demonstrate no intraluminal filling defects to suggest central pulmonary embolism. Lower Neck: No enlarged lymph nodes. Thyroid: No thyroid nodules which require sonographic follow up, per consensus guidelines. Axillae: No enlarged lymph nodes. Chest Wall: Unremarkable. Bones: There is lower cervical spine fixation hardware. Age-appropriate bony degenerative changes are seen. Lungs and Pleura: No pneumothorax or pleural effusions. No consolidation or suspicious nodules. Heart: Heart size is normal. No pericardial effusion. Cygp-pu-crumjpaq coronary artery calcification is seen. Thoracic Vessels: No aortic aneurysm. Mediastinum and Annette: No enlarged lymph nodes. Esophagus: No wall thickening. There is a small hiatal hernia. Upper Abdomen: Layering gallstones are seen. The stomach is moderately distended. The visualized portions of the upper abdominal structures are otherwise unremarkable for imaging technique. IMPRESSION: No pulmonary embolus. No acute cardiopulmonary process. Additional findings: Lower cervical spine fixation hardware Sabb-cc-wxgnxqsw coronary artery calcification Small hiatal hernia Gallstones Moderately distended stomach Dictated by: Harjinder Aldrich M.D. on 09/10/2024 at 22:30 Approved by: Harjinder Aldrich M.D. on 09/10/2024 at 22:33 ECG Data Attestation: I personally reviewed and interpreted this ECG as follows: Interpretation: Normal sinus rhythm with rate of 60, no obvious ST segment elevation or depression changes. NM 176, QRS 84, QTC 404. MDM Narrative Medical decision making narrative: 74-year-old male with near syncopal episodes x3 earlier today, arrived by EMS, glucose normal, felt better on arrival here. History of pulmonary embolus, taking warfarin. INR not in therapeutic range today. No history of strokes or CAD no. Afebrile, sirs screen negative. Unremarkable neuro exam nonfocal. GFR favorable. Chest x-ray unremarkable. Troponin negative. CT head, CT angiogram head and neck vessels. CT angiogram lung. CT head noncontrast, no acute changes. See radiology report. CT angiogram head and neck vessels, no narrowing or thrombosis. See radiology report. CT angiogram chest. No pulmonary embolus, no acute changes. See radiology report. Repeat troponin also negative. Patient would like further workup as an inpatient for now, after we discussed outpatient versus inpatient options. We will contact hospitalist. 0020, case discussed with hospitalist Dr. Roper who accepts patient for admission Discharge Plan Departure Patient Disposition: Admitted as Observation Clinical Impression: Near syncope Admit Date/Time: 09/11/24 00:51 Admit Provider: Nestor Roper
--- NOTE | 2024-09-10 22:55 | DI.CT.S_ITS ---
PROCEDURE: CT ANGIO HEAD AND NECK INDICATIONS: near syncope TECHNIQUE: After the administration of intravenous contrast, 1 mm thick sections acquired from the aortic arch through the [place]. 3-dimensional fytumdc-rdtcoipiq-yvgtmwocup (MIP) and/or volume rendering reformats were acquired of the central intracranial vasculature and neck separately. For radiation dose reduction, the following was used: automated exposure control, adjustment of mA and/or kV according to patient size. COMPARISON: [facility], CT, CT ANGIO CHEST PE PROTOCOL, 09/10/2024, 23:19. [facility], CT, CT HEAD/BRAIN WO CON, 09/10/2024, 23:05. [facility], CR, XR CHEST 1V, 09/10/2024, 19:29. FINDINGS: Image quality: There is streak artifact seen through the level of the shoulders. Limited by bolus timing, with venous contamination. BRAIN: CSF spaces: Ventricles are normal in size and shape. Basal cisterns are patent. No extra-axial fluid collections. Brain: No significant abnormality of the brain can be seen. Skull and face: Calvarium and facial bones appear intact, without suspicious lesions. Orbits appear normal. Sinuses: Sinuses and mastoids are clear. HEAD CT ANGIOGRAPHY: Anterior circulation: Intracranial internal carotid arteries are normal in size and flow. The flow within the paired anterior cerebral arteries is normal and symmetric. The flow within the middle cerebral arteries is normal and symmetric. The anterior communicating artery is seen. No aneurysms are seen. Posterior circulation: The right V4 segment is within normal limits. The left V4 segment largely terminates in the left posterior inferior cerebellar artery. There is a normal appearing basilar artery. Flow within the posterior cerebral arteries is normal and symmetric. No aneurysms are seen. NECK CT ANGIOGRAPHY: Carotid system: The great vessels demonstrate a conventional anatomy as they arise from the aortic arch. The origins of the common carotid arteries appear patent. The common carotid arteries demonstrate normal caliber and courses. The bifurcation regions are both widely patent. The internal carotid arteries demonstrate normal calibers and courses. Posterior circulation: The origins of the vertebral arteries both appear widely patent. The more superior extracranial portions of both vertebral arteries also demonstrate normal courses and calibers. The right vertebral artery is dominant to the left. Soft tissues: Visualized neck soft tissues demonstrate no suspicious abnormalities. Bones: No suspicious bony lesions. Visualized cervical spine appears normally aligned. Anterior fixation hardware can be seen C5 through C7. IMPRESSION: No imaging explanation is found for this patient's presenting symptoms. No significant intracranial arterial abnormality is seen. No significant abnormality is seen within the arteries of the neck. Additional findings: Tnphyp-bz-Imkskk developmental anomalies. Lower cervical spine fixation hardware Any quantitative measurements of stenosis were performed using NASCET criteria. Dictated by: Harjinder Aldrich M.D. on 09/10/2024 at 22:27 Approved by: Harjinder Aldrich M.D. on 09/10/2024 at 22:30
--- NOTE | 2024-09-10 22:55 | DI.CT.S_ITS ---
PROCEDURE: CT HEAD/BRAIN WO CON INDICATIONS: near syncope x3 episodes TECHNIQUE: Noncontrast 4.5 mm thick angled axial sections acquired from the foramen magnum to the vertex, with coronal and sagittal reformats. For radiation dose reduction, the following was used: automated exposure control, adjustment of mA and/or kV according to patient size. COMPARISON: [facility], CT, CT ANGIO CHEST PE PROTOCOL, 09/10/2024, 23:19. [facility], CT, CT ANGIO HEAD AND NECK, 09/10/2024, 23:05. FINDINGS: Image quality: Diagnostic. CSF spaces: Basal cisterns are patent. No extra-axial fluid collections. The ventricles are symmetric in size and shape. Brain: No intracranial bleeds or mass effect. There is cerebral volume loss, with resultant ventricular and sulcal prominence. There are periventricular and deep white matter chronic small vessel ischemic changes. There is intracranial internal carotid artery atherosclerosis. Skull and face: Calvarium and visualized facial bones appear intact, without suspicious lesions. Sinuses: Visualized sinuses and mastoids are clear. IMPRESSION: Unremarkable noncontrast head CT. Dictated by: Harjinder Aldrich M.D. on 09/10/2024 at 22:25 Approved by: Harjinder Aldrich M.D. on 09/10/2024 at 22:27
--- NOTE | 2024-09-10 22:57 | DI.CT.S_ITS ---
PROCEDURE: CT ANGIO CHEST PE PROTOCOL INDICATIONS: hx PE, near syncope, on warfarin TECHNIQUE: After the administration of intravenous contrast, 2 mm thick sections acquired from the pulmonary apices to the posterior costophrenic angles. 3-dimensional maximum intensity projection (MIP) coronal and sagittal reformats were then acquired through the thorax. For radiation dose reduction, the following was used: automated exposure control, adjustment of mA and/or kV according to patient size. COMPARISON: [facility], CT, CT ABDOMEN PELVIS W CON, 03/23/2024, 0:56. [facility], CT, CT HEAD/BRAIN WO CON, 09/10/2024, 23:05. [facility], CT, CT ANGIO HEAD AND NECK, 09/10/2024, 23:05. [facility], CR, XR CHEST 1V, 09/10/2024, 19:29. FINDINGS: Image quality: Diagnostic. Pulmonary arteries: Pulmonary arteries are normal in size, and demonstrate no intraluminal filling defects to suggest central pulmonary embolism. Lower Neck: No enlarged lymph nodes. Thyroid: No thyroid nodules which require sonographic follow up, per consensus guidelines. Axillae: No enlarged lymph nodes. Chest Wall: Unremarkable. Bones: There is lower cervical spine fixation hardware. Age-appropriate bony degenerative changes are seen. Lungs and Pleura: No pneumothorax or pleural effusions. No consolidation or suspicious nodules. Heart: Heart size is normal. No pericardial effusion. [id number] coronary artery calcification is seen. Thoracic Vessels: No aortic aneurysm. Mediastinum and Annette: No enlarged lymph nodes. Esophagus: No wall thickening. There is a small hiatal hernia. Upper Abdomen: Layering gallstones are seen. The stomach is moderately distended. The visualized portions of the upper abdominal structures are otherwise unremarkable for imaging technique. IMPRESSION: No pulmonary embolus. No acute cardiopulmonary process. Additional findings: Lower cervical spine fixation hardware [id number] coronary artery calcification Small hiatal hernia Gallstones Moderately distended stomach Dictated by: Harjinder Aldrich M.D. on 09/10/2024 at 22:30 Approved by: Harjinder Aldrich M.D. on 09/10/2024 at 22:33
[2024-09-10] MEDS: SODIUM CHLORIDE 0.9% 1,000 ML 1000 ML IV (23:31)
[2024-09-11] VITALS: BP 119/58; PULSE 58; RESP 14; O2SAT 99
[2024-09-11 00:30] VITALS: BP 125/63; PULSE 60; RESP 15; O2SAT 97
[2024-09-11 01:23] VITALS: BP 145/72; PULSE 60; RESP 19; TEMP 36.4; O2SAT 98
[2024-09-11 01:42] VITALS: BMI 25.8
[2024-09-11] MEDS: SODIUM CHLORIDE 0.9% 1,000 ML 75 ML IV (01:51)
--- NOTE | 2024-09-11 01:59 | PM.HP.1 ---
History of Present Illness History of Present Illness Chief complaint: dizziness and shaky after marijuana Narrative: 74-year-old male with past medical history of pulm embolism on Coumadin, hypertension, hyperlipidemia, psoriasis and GERD presents with presyncope. Per the patient's report, around this afternoon, the patient had 3 episodes of near syncope. The patient states that his initial episode was when he was standing position and became sweaty and dizzy. The patient had a sensation of white out and almost had a fall but did not. The patient sat down and shortly after had another episode similar to that. The patient denies any chest pain, palpitation, fever, chills, nausea, vomiting or diarrhea. Finally the patient had another episode and he asked his to call EMS and bring him to the ER. The patient denies any seizure activities or any focal weakness. In the emergency room, the patient was hemodynamically stable without orthostatic. Labs were benign without any signs of infection or sepsis. CT angio of the chest shows no pulm embolism. INR was 1.6. CTA head and neck also's are negative. EKG shows no signs of acute ischemia or arrhythmia. Troponin is negative. The patient received IV fluid and a request for admission to monitor overnight. 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) S/P epidural steroid injection History of vasectomy Hx of hernia repair Hx of tonsillectomy Hx of fusion of cervical spine (~2013) Social History household members: spouse alcohol intake: never Meds Home Medications and Allergies Home Medications Medication Instructions Recorded Confirmed Type cyclobenzaprine 10 mg tablet 10 mg PO TID PRN Muscle Spasm ##0 09/08/11 09/11/24 History omeprazole 20 mg tablet,delayed 20 mg PO QPM ##0 09/08/11 09/11/24 History release aspirin 81 mg tablet,delayed 81 mg PO DAILY 04/13/19 12/16/23 History release (Yuan Low Dose Aspirin) cholecalciferol (vitamin D3) 25 1,000 unit PO DAILY 04/13/19 04/22/23 History mcg (1,000 unit) capsule (Vitamin D3) atorvastatin 40 mg tablet 40 mg PO BEDTIME 12/18/20 09/11/24 History warfarin 5 mg tablet 5 mg PO SEEINSTR 12/18/20 12/16/23 History folic acid 1 mg tablet 1 mg PO DAILY 04/16/23 04/22/23 History methotrexate sodium 2.5 mg tablet 20 mg PO QWEEK 04/16/23 12/16/23 History mirtazapine 15 mg tablet 15 mg PO BEDTIME 04/16/23 09/11/24 History acetaminophen 325 mg tablet 650 mg (2 x 325 mg) PO Q6H #240 04/24/23 12/16/23 Rx tabs cyclobenzaprine 10 mg tablet 10 mg PO TID #60 tabs 04/24/23 Rx hydrocortisone 1 %-pramoxine 1 % 1 applic TX QID PRN hemorrhoids 12/02/23 Rx rectal foam (Proctofoam HC) #10 grams ciprofloxacin HCl 750 mg tablet 750 mg PO BID #20 tabs 03/17/24 Rx hydromorphone 2 mg tablet 2 mg PO Q6H PRN pain #20 tabs 03/17/24 Rx (Dilaudid) metronidazole 500 mg tablet 500 mg PO TID #30 tabs 03/17/24 Rx hydrochlorothiazide 25 mg tablet 25 mg PO DAILY 09/11/24 09/11/24 History losartan 50 mg tablet 50 mg PO DAILY 09/11/24 09/11/24 History timolol maleate 0.5 % eye gel EYE-BOTH BID 09/11/24 History forming solution Allergies Allergy/AdvReac Type Severity Reaction Status Date / Time hydrocodone Allergy Severe Welts, Verified 12/16/23 08:53 sweats, loss of appetite hydroxychloroquine Allergy Severe Rash Verified 12/16/23 08:53 Sulfa (Sulfonamide Allergy Severe Rash Verified 12/16/23 08:53 Antibiotics) adhesive tape Allergy Mild Rash Verified 12/16/23 08:53 sulfamethoxazole Allergy Mild Rash Verified 12/16/23 08:53 [From ] trimethoprim [From ] Allergy Mild Rash Verified 12/16/23 08:53 Review of Systems Review of Systems ROS: Yes All systems reviewed with the patient and are negative except as otherwise documented Exam Vital Signs (past 8 hours): - 09/10/24 18:56 09/10/24 18:56 09/10/24 19:00 Temperature Pulse Rate 66 62 Pulse Rate [Orthostatic Lying] Pulse Rate [Orthostatic Sitting] Pulse Rate [Orthostatic Standing] Respiratory Rate 20 Blood Pressure 202/88 H Blood Pressure [Orthostatic Lying] Blood Pressure [Orthostatic Sitting] Blood Pressure [Orthostatic Standing] Pulse Oximetry 99 100 Oxygen Delivery Method Oxygen Flow Rate 09/10/24 19:01 09/10/24 19:01 09/10/24 19:01 Temperature 97.8 F Pulse Rate 62 61 Pulse Rate [Orthostatic Lying] Pulse Rate [Orthostatic Sitting] Pulse Rate [Orthostatic Standing] Respiratory Rate 16 24 Blood Pressure 202/88 H 167/76 H Blood Pressure [Orthostatic Lying] Blood Pressure [Orthostatic Sitting] Blood Pressure [Orthostatic Standing] Pulse Oximetry 100 100 Oxygen Delivery Method Room Air Oxygen Flow Rate 09/10/24 19:30 09/10/24 19:30 09/10/24 20:00 Temperature Pulse Rate 59 L Pulse Rate [Orthostatic Lying] Pulse Rate [Orthostatic Sitting] Pulse Rate [Orthostatic Standing] Respiratory Rate 26 H Blood Pressure 137/66 135/68 Blood Pressure [Orthostatic Lying] Blood Pressure [Orthostatic Sitting] Blood Pressure [Orthostatic Standing] Pulse Oximetry 96 Oxygen Delivery Method Oxygen Flow Rate 09/10/24 20:00 09/10/24 20:30 09/10/24 20:30 Temperature Pulse Rate 57 L 54 L Pulse Rate [Orthostatic Lying] Pulse Rate [Orthostatic Sitting] Pulse Rate [Orthostatic Standing] Respiratory Rate 20 22 Blood Pressure 128/62 Blood Pressure [Orthostatic Lying] Blood Pressure [Orthostatic Sitting] Blood Pressure [Orthostatic Standing] Pulse Oximetry 96 96 Oxygen Delivery Method Oxygen Flow Rate 09/10/24 21:00 09/10/24 21:00 09/10/24 21:30 Temperature Pulse Rate 54 L 55 L Pulse Rate [Orthostatic Lying] Pulse Rate [Orthostatic Sitting] Pulse Rate [Orthostatic Standing] Respiratory Rate 26 H 25 H Blood Pressure 117/64 Blood Pressure [Orthostatic Lying] Blood Pressure [Orthostatic Sitting] Blood Pressure [Orthostatic Standing] Pulse Oximetry 96 96 Oxygen Delivery Method Oxygen Flow Rate 09/10/24 21:32 09/10/24 21:32 09/10/24 22:00 Temperature Pulse Rate 55 L Pulse Rate [Orthostatic Lying] Pulse Rate [Orthostatic Sitting] Pulse Rate [Orthostatic Standing] Respiratory Rate 24 Blood Pressure 118/66 108/63 Blood Pressure [Orthostatic Lying] Blood Pressure [Orthostatic Sitting] Blood Pressure [Orthostatic Standing] Pulse Oximetry 97 Oxygen Delivery Method Oxygen Flow Rate 09/10/24 22:00 09/10/24 22:30 09/10/24 22:30 Temperature Pulse Rate 55 L 54 L Pulse Rate [Orthostatic Lying] Pulse Rate [Orthostatic Sitting] Pulse Rate [Orthostatic Standing] Respiratory Rate 18 21 Blood Pressure 110/61 Blood Pressure [Orthostatic Lying] Blood Pressure [Orthostatic Sitting] Blood Pressure [Orthostatic Standing] Pulse Oximetry 97 96 Oxygen Delivery Method Oxygen Flow Rate 09/10/24 23:21 09/10/24 23:30 09/10/24 23:30 Temperature Pulse Rate 59 L 57 L Pulse Rate [Orthostatic Lying] Pulse Rate [Orthostatic Sitting] Pulse Rate [Orthostatic Standing] Respiratory Rate 20 13 Blood Pressure 140/67 Blood Pressure [Orthostatic Lying] Blood Pressure [Orthostatic Sitting] Blood Pressure [Orthostatic Standing] Pulse Oximetry 99 98 Oxygen Delivery Method Oxygen Flow Rate 09/10/24 23:32 09/10/24 23:32 09/10/24 23:33 Temperature Pulse Rate 59 L 59 L Pulse Rate [Orthostatic Lying] Pulse Rate [Orthostatic Sitting] Pulse Rate [Orthostatic Standing] Respiratory Rate 12 19 Blood Pressure 148/69 H Blood Pressure [Orthostatic Lying] Blood Pressure [Orthostatic Sitting] Blood Pressure [Orthostatic Standing] Pulse Oximetry 98 98 Oxygen Delivery Method Oxygen Flow Rate 09/10/24 23:33 09/10/24 23:35 09/11/24 00:00 Temperature Pulse Rate 58 L Pulse Rate [Orthostatic Lying] 58 L Pulse Rate [Orthostatic Sitting] 59 L Pulse Rate [Orthostatic Standing] 60 Respiratory Rate 14 Blood Pressure 140/65 Blood Pressure [Orthostatic Lying] 140/67 Blood Pressure [Orthostatic Sitting] 148/69 H Blood Pressure [Orthostatic Standing] 140/65 Pulse Oximetry 99 Oxygen Delivery Method Oxygen Flow Rate 09/11/24 00:00 09/11/24 00:30 09/11/24 00:30 Temperature Pulse Rate 60 Pulse Rate [Orthostatic Lying] Pulse Rate [Orthostatic Sitting] Pulse Rate [Orthostatic Standing] Respiratory Rate 15 Blood Pressure 119/58 L 125/63 Blood Pressure [Orthostatic Lying] Blood Pressure [Orthostatic Sitting] Blood Pressure [Orthostatic Standing] Pulse Oximetry 97 Oxygen Delivery Method Oxygen Flow Rate 09/11/24 01:23 Temperature 97.6 F Pulse Rate 60 Pulse Rate [Orthostatic Lying] Pulse Rate [Orthostatic Sitting] Pulse Rate [Orthostatic Standing] Respiratory Rate 19 Blood Pressure 145/72 H Blood Pressure [Orthostatic Lying] Blood Pressure [Orthostatic Sitting] Blood Pressure [Orthostatic Standing] Pulse Oximetry 98 Oxygen Delivery Method Oxygen Flow Rate 0 Oxygen Delivery Method Room Air Oxygen Flow Rate 0 Narrative Exam Narrative: Physical Exam: GENERAL: The patient is not in any acute distressed. Awake and alert. HEENT: Nonicteric sclerae, PERRLA, EOMI. Oropharynx clear. Moist mucous membranes. Conjunctivae appear well perfused. HEART: Regular rate and rhythm without murmurs. No lower extremities edema. LUNGS: Clear to auscultation bilaterally. No wheezing, crackles or rhonchi ABDOMEN: Soft, positive bowel sounds, nontender. SKIN: No rash, no excessive bruising, petechiae, or purpura. NEUROLOGIC: AxO x 3. Cranial nerves II-XII intact without motor/sensory deficit. Objective Labs 09/10/24 19:01 09/10/24 19:01 Labs: Laboratory Results - last 24 hr 09/10/24 09/10/24 19:01 21:30 WBC 6.7 RBC 3.96 L Hgb 13.4 L Hct 39.2 L MCV 99.0 MCH 33.9 MCHC 34.3 RDW 14.2 Plt Count 290 Neut % (Auto) 62.8 Lymph % (Auto) 24.5 L [place] % (Auto) 8.9 Eos % (Auto) 2.5 Baso % (Auto) 1.3 Neut # (Auto) 4200 Lymph # (Auto) 1600 [place] # (Auto) 600 Eos # (Auto) 200 Baso # (Auto) 100 PT 17.5 H INR 1.6 H APTT 30 Sodium 137 Potassium 3.5 Chloride 103 Carbon Dioxide 25 BUN 23 H Creatinine 1.18 Estimated GFR > 60 BUN/Creatinine Ratio 19.5 Glucose 128 H Calcium 9.6 Magnesium 2.2 Total Bilirubin 0.8 AST 35 ALT 30 Alkaline Phosphatase 68 Total Creatine Kinase 150 Troponin I < 0.012 < 0.012 NT-Pro-B Natriuret Pep 134 H Total Protein 7.5 Albumin 4.7 Globulin 2.8 Albumin/Globulin Ratio 1.7 Lipase 258 Assessment & Plan Assessment & Plan narrative: Presyncope. Admit the patient to medical telemetry under observation. As stated above.Labs were benign without any signs of infection or sepsis. CT angio of the chest shows no pulm embolism. INR was 1.6. CTA head and neck also's are negative. EKG shows no signs of acute ischemia or arrhythmia. Troponin is negative. The patient is nonfocal on exam. Continue to monitor on telemetry for any arrhythmia. Echocardiogram ordered. If patient symptoms do not improve and recur consider getting brain MRI to rule out small stroke. PT OT. Continue IV fluid. Hypertension. Monitor blood pressure and hold blood pressure medication due to the fact the patient has near-syncope episode. History of PE. Again CT angio of the chest negative for PE. INR subtherapeutic. Consult pharmacy to manage Coumadin. Hyperlipidemia. Resume home medication including statin. GERD continue PPI. DVT prophylaxis Coumadin. CODE STATUS full code. Disposition likely home in 1 to 2 days - As the provider of this telehealth evaluation, requested by the patient's evaluating physician, I attest that I introduced myself to the patient, provided my credentials and determined that telemedicine via a real-time, 2 way interactive audio and video platform is an appropriate and effective means of providing this service. - I reviewed the patient's chart and had a discussion with the member of the patient's treatment team. - The patient and I mutually agreed with continuation of this evaluation via telemedicine. The patient consented for the telemedicine evaluation. - This virtual encounter was taken place from [place]. The encounter was approximately 35 minutes. The nurse was present during the entire time of the encounter and was able to move the stethoscope in appropriate directions. The patient was evaluated at [facility]. Time-Based Coding :: [TOTAL MINUTES] spent with patient and on the chart (including review of chart, obtaining history, exam, reviewing outside data, placing orders, documenting exam and treatment plan, and counseling patient) on [DATE].
[2024-09-11 06:14] LABS: Add Manual Diff / Slide Review NO; Basophils Absolute Auto 100 /uL (0-100); Basophils Percent Auto 1.3 % (0-2); Eosinophils Absolute Auto 200 /uL (0-450); Eosinophils Percent Auto 3.3 % (2-4); Hematocrit 36.9 % (41-53); Hemoglobin 12.6 g/dL (13.5-17.5); Lymphocytes Absolute Auto 1900 /uL (1100-4500); Lymphocytes Percent Auto 28.2 % (25-40); Mean Corpuscular HGB Conc 34.2 % (30-36); Mean Corpuscular Hemoglobin 34.3 PG (26-34); Mean Corpuscular Volume 100.2 fL (80-100); Monocytes Absolute Auto 700 /uL (0-900); Monocytes Percent Auto 10.5 % (3-14); Neutrophils Absolute Auto 3800 /uL (1500-7000); Neutrophils Percent Auto 56.7 % (50-75); Platelet Count 249 X10^3/uL (150-400); Red Blood Cell Count 3.69 X10^6/uL (4.5-5.9); Red Cell Distribution Width 14.3 % (11.6-14.8); White Blood Cell Count 6.7 X10^3/uL (4.5-11.0)
[2024-09-11 06:29] LABS: BUN Creatinine Ratio 21.4 (6-22); Blood Urea Nitrogen 22 mg/dL (9-20); Carbon Dioxide 27 mmol/L (22-32); Chloride 106 mmol/L (98-107); Estimated Glomerular Filt Rate > 60 mL/min (>60); Glucose 105 mg/dL (70-99); HEMOLYSIS < 15 (0-50); Potassium 4.5 mmol/L (3.4-5.1); Sodium 137 mmol/L (137-145)
[2024-09-11 08:00] VITALS: BP 156/78; PULSE 58; RESP 16; TEMP 36.6; O2SAT 98
[2024-09-11 08:41] LABS: INR 1.6 (0.9-1.3); Prothrombin Time 18.4 SECONDS (9.4-12.5)
--- NOTE | 2024-09-11 09:01 | DI.ECHO.S_ITS ---
[facility] : : [address] : : [place] : : [id number] : : Phone: [phone] Echocardiogram Report + + :Name: VIC SOLO JR Study Date: 09/11/2024 Height: 67 in : :[facility] ReadingLocation: Weight: 165 lb : : Gender: Male BSA: 1.9 m2 : :: 1950 Age: 74 yrs BP: 156/78 mmHg: :Reason For Study: PRESYNCOPE : :Ordering Physician: MOY, : :DUARTE Performed By: Singh Osorio : :Referring: DUARTE WINTER : + + Interpretation Summary The left ventricle is normal in size. The left ventricular ejection fraction is normal. The ejection fraction is estimated to be 60-65%. The right ventricle is normal in size and function. There is mild mitral regurgitation. The inferior vena cava was not visualized. Procedure: A two-dimensional transthoracic echocardiogram with color flow and Doppler was performed. The study quality was technically good. There is no prior echocardiogram noted for this patient. The patient was in normal sinus rhythm during the exam. Left Ventricle: The left ventricle is normal in size. There is normal left ventricular wall thickness. There is no ventricular septal defect visualized. The ejection fraction is estimated to be 60-65%. The left ventricular ejection fraction is normal. There are no focal wall motion abnormalities. MV E/A: 1.8 Med Peak E' Rajinder: 7.3 cm/sec E/E' med: 11.9. Right Ventricle: The right ventricle is normal in size and function. Atria: The left atrium is mildly dilated. Right atrial size is normal. There is no Doppler evidence for an atrial septal defect. Mitral Valve: There is mild mitral annular calcification. The mitral valve leaflets are slightly calcified. There is mild mitral regurgitation. Aortic Valve: The aortic valve is trileaflet. The aortic valve opens well. There is trace aortic regurgitation. Tricuspid Valve: The tricuspid valve is not well visualized, but is grossly normal. No tricuspid regurgitation. Pulmonary artery pressures cannot be estimated because of the lack of a measurable TR jet velocity. Pulmonic Valve: The pulmonic valve is not well visualized. There is no pulmonic valvular regurgitation. Great Vessels: The aortic root is normal size. The dimensions of the ascending aorta are normal. The pulmonary artery is normal size. The inferior vena cava was not visualized. Pericardium/ Pleura There is no pericardial effusion. MMode/2D Measurements & Calculations LVIDd: 4.4 cm LVOT diam: 2.0 cm LVIDs: 2.8 cm Ao root diam: 3.3 cm FS: 36.5 % asc Aorta Diam: 3.4 cm EPSS: 0.52 cm Ao Arch Diam (Prox Trans): 2.4 cm IVSd: 1.2 cm LVPWd: 1.2 cm LV saldaña. diameter/BSA (cm/m^2): 2.3 LV sys. diameter/BSA (cm/m^2): 1.5 LA A2 area: 23.8 cm2 RA long axis: 4.3 cm LA A4 area: 19.7 cm2 RA area: 10.9 cm2 LA length (vol): 5.4 cm RA vol: 23.6 ml LA vol: 73.7 ml RA : 12.6 ml/m2 LA vol index: 39.5 ml/m2 RVD1 (basal): 3.8 cm RVD2 (mid): 3.4 cm TAPSE: 3.9 cm Doppler Measurements & Calculations Ao V2 max: 134.4 cm/sec LVOT Max Rajinder: 92.6 cm/sec Ao V2 mean: 93.7 cm/sec LV V1 max P.4 mmHg Ao max P.2 mmHg LV V1 VTI: 24.1 cm Ao mean P.9 mmHg SANDRA(I,D): 2.5 cm2 Ao V2 VTI: 30.0 cm SANDRA(V,D): 2.2 cm2 sev ratio: 0.81 SANDRA indexed to BSA (cm^2/m^2): 1.4 MV E max rajinder: 87.0 cm/sec PA V2 max: 136.9 cm/sec MV A max rajinder: 47.5 cm/sec PA V2 mean: 84.9 cm/sec MV E/A: 1.8 PA mean P.4 mmHg Med Peak E' Rajinder: 7.3 cm/sec PA pr(Accel): 44.7 mmHg E/E' med: 11.9 Lat Peak E' Rajinder: 9.3 cm/sec E/E' lat: 9.3 E/e' average: 10.6 MV dec time: 0.21 sec SV([facility]): 75.6 ml Reading Physician:01:40 PM
--- NOTE | 2024-09-11 11:14 | PT-IP ANOTE ---
Pt adm with dizziness and shakiness. PT consult received and PT reviewed chart and checked on pt to initiate mobility assessment and orthostatic check. Pt currently receiving ECHO in the room. Con't PT efforts.
--- NOTE | 2024-09-11 12:39 | PT.IIE ---
Surgical History (Last Reviewed 03/17/24 @ 08:04 by Madeleine Gregg MD) History of esophagogastroduodenoscopy (EGD) (08/14/21) 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) History of vasectomy Hx of colonoscopy (08/14/21) Hx of fusion of cervical spine (~2013) Hx of hernia repair Hx of tonsillectomy S/P epidural steroid injection Medical History (Last Reviewed 03/23/24 @ 05:22 by Andrew Colindres DO) Anxiety Arthritis Crohn disease Depression Diverticulitis DJD (degenerative joint disease) Eczema GERD (gastroesophageal reflux disease) Hearing impaired HTN (hypertension) 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8) Pulmonary embolism Spinal stenosis Physical Therapy Inpatient Evaluation/Re-Eval M1 PT/OT-IP Prior Functional Status Start: 09/11/24 08:48 Freq: NEEDED Status: Active Protocol: Document 09/11/24 12:01 MB (Rec: 09/11/24 12:28 MB Desktop) Medical Review Prior Functional Status Medical History Reviewed Yes Diet/Fluid Consistency Regular Communication WNLs Mobility and Gait I, has a cane for long walks Activities of Daily Living and IADL's I, drives Social History Household Members spouse Living Arrangements House Number of Floors (Floors) One Floor Number of Stairs To Enter/Railing? 1 platform step to enter without rail Home Environment Standard Height Toilet,Tub/ Shower Home Equipment Straight Cane,Grab Bars In Shower Employment Status Retired M2 PT-IP Current Condition Start: 09/11/24 08:48 Freq: NEEDED Status: Active Protocol: Document 09/11/24 12:01 MB (Rec: 09/11/24 12:28 MB Desktop) Physical Therapy Current Condition Current Condition Evaluation Date 09/11/24 Treatment Diagnosis Dizziness and shakiness M3 PT-IP Subjective Start: 09/11/24 08:48 Freq: NEEDED Status: Active Protocol: Document 09/11/24 12:01 MB (Rec: 09/11/24 12:28 MB Desktop) Subjective Physical Therapy Visit Type Type Initial Evaluation Visit Start Time 12:01 Visit Stop Time 12:19 Number of WE[employer]ODUCTION ASSISTANT Visits 0 Physical Therapy Visit Comments Patient Comments Pt is agreeable to PT, states he has a CALL[place]AY which is usual for him, did not drink usual cup of coffee in a.m. Therapy Pain Assessment Pain When Pain Assessed At Rest Pain Present Pain Present Pain Reported Location [place] Scale Used 2-3 numeric M4 PT-IP Mobility and Gait Start: 09/11/24 08:48 Freq: NEEDED Status: Active Protocol: Document 09/11/24 12:01 MB (Rec: 09/11/24 12:28 MB Desktop) PT-Bed Mobility Assessment Rolling Type of Rolling Roll to Right Level of Assist Standby Assistance Supine to Sit Supine to Sit Standby Assistance,1 Person Assistance,Bedrails Scooting Scooting to Edge of Bed Standby Assistance PT-Transfer Assessment Sit to and From Stand Sit to and from Stand Contact Guard Assistance,1 Person Assistance,Use of Upper Extremities Equipment Transfer Assistive Device Gait Belt Transfers Transfer Destination Chair Transfer Technique Stepping to the right Transfer Ability Level of Assist Contact Guard Assistance,Use of Upper Extremities Comments Mobility Comments Negative orthostatic assessment with BP and HR in right UE: supine 156/74, 59; standing 152/81, 63; standing 1' 173/81, 62 Gait Assessment Gait Gait Assistance Required: Contact Guard Assist Distance (Feet) 1 Assistive Devices Assistive Device Gait Belt Gait Deviations General Gait Pattern Decreased Stride Length, Decreased Feet Clearance, Flexed Trunk Factors Limiting Gait Function Factors Limiting Gait Function Decreased Activity Tolerance PT-Balance Assessment Sitting Balance and Reactions Static Sitting Balance Ability Normal Dynamic Sitting Balance Ability Good Standing Balance and Reactions Static Standing Balance Ability Good Dynamic Standing Balance Ability Fair Device Used Gait belt and CGA M5 PT-IP Objective Assessments Start: 09/11/24 08:48 Freq: NEEDED Status: Active Protocol: Document 09/11/24 12:01 MB (Rec: 09/11/24 12:39 MB Desktop) Orientation Orientation/Cognition Level of Alertness Alert Orientation Name,Age,Birthday,Month,Date, Year,Day of Week,Place, Situation Language Function Ability No Deficits Noted Safety Awareness Understands Safety Issues Memory Description No Deficits Noted Gross Range of Motion Upper Extremity ROM Impairments Functionally observed only and appear WFLs Lower Extremity ROM Impairments As above Strength Upper Extremity Strength Assessment Within Functional Limits Lower Extremity Strength Assessment Within Functional Limits Coordination Assessment Assessment Coordination Comments NT Sensation Assessment Comments Sensation Comments NT and no complaints Muscle Tone Muscle Tone WNL Yes M6 PT-IP Treatment Start: 09/11/24 08:48 Freq: NEEDED Status: Active Protocol: Document 09/11/24 12:01 MB (Rec: 09/11/24 12:39 MB Desktop) Physical Therapy Treatment Education Education Provided Safety M7 PT-IP Assessment and Plan Start: 09/11/24 08:48 Freq: NEEDED Status: Active Protocol: Document 09/11/24 12:01 MB (Rec: 09/11/24 12:39 MB Desktop) PT Summary Assessment and Plan Potential Status of Condition at Evaluation Evolving Summary Impairments Pain,Balance,Bed Mobility, Transfers,Gait,Activity Tolerance Assessment Summary Pt is a 74 y/o male adm with dizziness and shakiness and con't with work-up at time of PT assessment. Orthostatics are negative and he is hypertensive. No c/o positionally provoked vertigo. Lunch arrived and PT assisted pt up to chair. Will initiate further gait, balance and step training in future PT treatments. Anticipate he will be able to d/c home with assistance and she is available during PT assessment . Goals Bed Mobility Goal Independent Transfer Goal Independent,Cane Gait Goal Independent,Cane Gait Distance 100 Other Goals Gait with or without cane Pt will ascend and descend one platform step with no more than SBA to allow safe home entrance. Days to Meet Goals 5 Frequency of Treatment Frequency Of Treatment Once a Day Treatment Plan Physical Therapy Treatment Plan Bed Mobility Training,Transfer Training,Gait Training, Therapeutic Exercise,Balance Retraining,Discharge Planning, Hot or Cold Pack,Neuromuscular Re-ed,Coordination Retraining ,Manual Therapy Other Recommendations and Next Treatment Increase gait and try step Focus Recommendations To Nursing Amount of Assist Needed Standby Assistance Discharge Recommendations PT Discharge Recommendations Home with Assistance Transportation Needs at Discharge Private Vehicle - PT assist x1
--- NOTE | 2024-09-11 17:36 | PC.NURSE ---
Discharge Note Patient A&O, VSS, RA, no complaints of pain/discomfort. Patient agreeable to discharge plan. Discharge packet reviewed with patient, all questions/concerns addressed. PIV/TELE discontinued. Patient able to dress self and pack all belongings. Patient taken down to POV.
--- NOTE | 2024-10-03 12:08 | P.DS_ITS ---
History of Present Illness History of Present Illness Chief complaint: dizziness and shaky after marijuana Narrative: Per H&P: 74-year-old male with past medical history of pulm embolism on Coumadin, hypertension, hyperlipidemia, psoriasis and GERD presents with presyncope. Per the patient's report, around this afternoon, the patient had 3 episodes of near syncope. The patient states that his initial episode was when he was standing position and became sweaty and dizzy. The patient had a sensation of white out and almost had a fall but did not. The patient sat down and shortly after had another episode similar to that. The patient denies any chest pain, palpitation, fever, chills, nausea, vomiting or diarrhea. Finally the patient had another episode and he asked his to call EMS and bring him to the ER. The patient denies any seizure activities or any focal weakness. In the emergency room, the patient was hemodynamically stable without orthostatic. Labs were benign without any signs of infection or sepsis. CT angio of the chest shows no pulm embolism. INR was 1.6. CTA head and neck also's are negative. EKG shows no signs of acute ischemia or arrhythmia. Troponin is negative. The patient received IV fluid and a request for admission to monitor overnight. Discharge Providers Provider Date of admission: 09/11/24 00:51 Discharge Date: 09/11/24 Primary care physician: Doctor Pritesh MD Consults: 09/11/24 00:22 Consult to Physical Therapy Evaluate & Treat Comment: Physician Instructions: Evaluate and Treat 09/11/24 00:23 Consult to Occupational Therapy Evaluate & Treat Comment: Physician Instructions: Evaluate and treat Discharge provider: Susi Arthur MD Summary Hospital Course Discharge Diagnosis: 1) Presyncope, resolved. 2) HTN 3) Hx of thromboembolic disease, on chronic anticoagulation 4) HLD 5) GERD Hospital Course: Pt presented to the ED after what sounds like a vasovagal event. He ate dinner and then had taken a couple of hits off of his marijuana pipe and then got a splinter. He and his were bent over his finger in the garage when he began feeling faint and dizzy. He went and sat on his couch, but then felt as though he needed to have a BM. Got to the bathroom and continued to have dizziness/presyncopal sxs. Discussed that given his negative work-up and description of the events, it sounded as though he had a vasovagal event. Reviewed that when sxs presented, he should have laid down vs sat down, which may have resolved his sxs. Reviewed that marijuana can cause hypotension, which in conjunction w/having just eaten a big meal and prolonged standing, likely precipated the event. Additionally, he takes antihypertensive agents. Pt instructed to avoid prolonged standing in one position and rapid position changes. He is d/c'd in stable condition. He will f/u for repeat PT/INR as well as w/his PCP. Status at Discharge Cognitive/behavioral status at discharge: at baseline, oriented Time Spent with Patient Time spent: Greater than 30 minutes Exam Vital Signs (past 8 hours): Oxygen Delivery Method Room Air Oxygen Flow Rate 0 Const General: cooperative, well developed and No acute distress HENMT Nose: external nose normal Face and sinus: face symmetric Mouth: oral mucosae normal Resp Auscultation: clear to auscultation bilaterally Cardio Rate: regular rate Rhythm: regular rhythm GI Palpation: soft and No tender Auscultation: normal bowel sounds Neuro General: patient alert and patient oriented x3 Extrem Right lower extremity: normal to inspection; no edema Left lower extremity: normal to inspection; no edema Objective Labs 09/11/24 06:07 09/11/24 06:07 [facility] Medical History Crohn disease 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) Anxiety Eczema Diverticulitis GERD (gastroesophageal reflux disease) Hearing impaired Spinal stenosis HTN (hypertension) Depression DJD (degenerative joint disease) Arthritis Pulmonary embolism Surgical History Hx of colonoscopy (08/14/21) History of esophagogastroduodenoscopy (EGD) (08/14/21) 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) S/P epidural steroid injection History of vasectomy Hx of hernia repair Hx of tonsillectomy Hx of fusion of cervical spine (~2013) Social History household members: spouse alcohol intake: never Discharge Plan Discharge Plan Patient Disposition: Home Provider Discharge Comment: 1) You were admitted d/t 3 episodes of near fainting. 2) The CT scans of your head and neck revealed no stroke or vascular blockage 3) The MRI of your brain showed no stroke or other abnormality 4) The echocardiogram showed no cardiac cause of your episodes 5) The CT of your chest revealed no pulmonary cause. 6) Although you are mildly anemic, it isn't enough to make you feel faint 7) You were not orthostatic - meaning your HR and blood pressure did not change dramatically from laying to sitting to standing, so that didn't account for your symptoms Your INR is subtherapeutic at 1.6. Take 7.5 mg of warfarin this evening. Resume your usual dose tomorrow. Please check in with your anticoagulation clinic for a recheck on Thursday. Return to the ED: Recurring symptoms of feeling faint Inability to hold down food/fluids Stroke symptoms (see patient hand-out) Discharge orders & Medications Prescriptions: Continued omeprazole 20 MG tablet,delayed release (DR/EC) 20 mg PO QPM Qty: 0 Patient Comments: Takes around 1530 Rx Instructions: At 1600 cyclobenzaprine 10 MG tablet 10 mg PO TID PRN (Reason: Muscle Spasm) Qty: 0 aspirin [Yuan Low Dose Aspirin] 81 mg Tablet,Delayed Release (Dr/Ec) 81 mg PO BEDTIME cholecalciferol (vitamin D3) [Vitamin D3] 1,000 unit Capsule 1,000 unit PO BEDTIME methotrexate sodium 2.5 mg Tablet 20 mg PO QWEEK Patient Comments: 10mg BID on Tuesdays only Rx Instructions: On Tuesdays, 10mg BID folic acid 1 mg Tablet 1 mg PO DAILY mirtazapine 15 mg Tablet 15 mg PO BEDTIME losartan 50 mg tablet 50 mg PO DAILY hydrochlorothiazide 25 mg tablet 25 mg PO DAILY timolol maleate 0.5 % gel forming solution 1 drp EYE-BOTH BID atorvastatin 40 mg Tablet 40 mg PO BEDTIME warfarin 5 mg Tablet 5 mg PO SEEINSTR Rx Instructions: 7.5mg daily, 5MG Thursday bedtime Follow up/Referrals: Doctor Pritesh MD [Primary Care Provider] - Discharge Health Status Multidrug resistant organism: No MDRO Diet/Activity/Treatments Diet: Diet as Tolerated and Regular Activity: As tolerated. Oxygen: N/A Visit Report/Discharge Packet Instructions: DI for Syncope in Adults (Fainting) Stand Alone Forms: Patient Portal/API, Stroke Signs & Symptoms Discharge Data Primary Care Provider: Miscellaneous,Doctor Attending Provider: Nestor Roper Admit Date/Time: 09/11/24 00:51
== END 2024-09-11 15:00 | disposition home or self-care (01) ==
LOC: ED 09-11 00:21 → AC 09-11 00:52
PROVIDERS: Admitting Provider Internal Medicine; Emergency Provider Emergency Medicine; Family Provider Internal Medicine; Visit Provider Internal Medicine
DX: R07.9 Chest pain, unspecified (principal); R55 Syncope and collapse; Z86.711 Personal history of pulmonary embolism; Z79.01 Long term (current) use of anticoagulants; I10 Essential (primary) hypertension; E78.5 Hyperlipidemia, unspecified; K21.9 Gastro-esophageal reflux disease without esophagitis
CPT/HCPCS: 36415; 70450; 70496; 70498; 71045; 71275; 80048; 80053; 82550; 83690; 83735; 83880; 84484; 85025; 85610; 85730; 93005; 93010; 93306; 96360; 97162; 99284; G0378; Q9967